=== PATIENT | female | born 1975 | race Caucasian/White ===

== ENCOUNTER 2020-06-04 09:56 | Emergency (ER) | payer OTHER, SELFPAY ==
--- NOTE | ~2020-06-04 | XR_ITS ---
EXAMINATION: XR chest 2V DATE: 06/04/2020 10:30 INDICATION: Cough and congestion. TECHNIQUE: Frontal and lateral views of the chest were obtained. COMPARISON: Chest 2 views 07/20/2004 FINDINGS: The chest demonstrates clear lungs without pneumonia, pleural effusion, or pneumothorax. Th e heart size is normal. Surgical clips in the right upper quadrant are likely from cholecystectomy. IMPRESSION: 1. No acute cardiopulmonary disease. Reviewed, dictated and finalized at location A.
--- NOTE | 2020-06-04 10:09 | ED.URI ---
HPI - URI/Sore Throat General Chief Complaint: Upper Respiratory Infection Stated Complaint: COUGH/CHEST TIGHT/HEADACHE/NASAL CONGESITON Time Seen by Provider: 06/04/20 10:09 Source: patient and RN notes reviewed Mode of arrival: ambulatory Limitations: no limitations History of Present Illness HPI Narrative: 45-year-old female presents to [facility] with complaints of a sinus issues for about 10 days and states that it feels it has moved to her chest. Reports coughing and rib pain from coughing. Denies shortness of breath. has a history of bronchitis. Denies fevers. Denies chest pain Related Data Home Medications Medication Instructions Recorded Confirmed lisinopril 06/04/20 sertraline mg 06/04/20 topiramate 06/04/20 Allergies Allergy/AdvReac Type Severity Reaction Status Date / Time No Known Allergies Allergy Unverified 06/04/20 10:03 Review of Systems Review of Systems: Narrative: CONSTITUTIONAL: Denies fever, chills, or sweats. EYES: Denies visual changes, redness, or discharge. ENT: Reports rhinorrhea, congestion. Denies sore throat, or otalgia. CARDIOVASCULAR: Denies chest pain, palpitations, or edema. RESPIRATORY: Reports cough. Denies dyspnea. GASTROINTESTINAL: Denies abdominal pain, nausea, vomiting, or diarrhea. GENITOURINARY: Denies dysuria or hematuria. SKIN: Denies rash or itching. MUSCULOSKELETAL: Denies back pain, joint pain, or myalgia. NEUROLOGIC: Denies headache, numbness, or weakness. PSYCHIATRIC: Denies anxiety or depression. All other systems reviewed are negative, except as documented in HPI. PMFSH Comments At the time of my signature, I reviewed and agree with the nursing past medical, surgical, social, and family history. There is no relevant family history pertinent to the patient complaint. Exam Narrative: Exam Narrative: GENERAL: This is a well-nourished, well-developed patient, in no apparent distress. HEAD: normocephalic, atraumatic. EYES: PERRL. Sclera clear/white. Vision is grossly intact. EARS: External ears normal, auditory canals clear and without drainage, TMs normal without perforation. Hearing grossly intact. NOSE: External nose normal with clear nasal discharge. nares without redness. THROAT: Mucous membranes moist, posterior pharynx postnasal drip noted NECK: Neck supple, non-tender without lymphadenopathy, masses or thyromegaly. CARDIOVASCULAR: Regular rate and rhythm without murmurs, gallops, or rubs. RESPIRATORY: Clear to auscultation. Breath sounds equal bilaterally. No wheezes, rales, or rhonchi. GASTROINTESTINAL: Abdomen soft, non-tender, nondistended. SKIN: warm, intact with no suspicious lesions or rash, good texture and turgor. NEURO: awake, alert, and oriented to person, place and time. There were no obvious focal neurologic abnormalities. EXTREMITIES: No joint tenderness, effusion, or edema noted. BACK: Nontender without deformity. Course Vital Signs Vital signs: Vital Signs Temperature 98.9 F 06/04/20 10:12 Pulse Rate 65 06/04/20 10:12 Respiratory Rate 12 06/04/20 10:12 Blood Pressure 149/91 H 06/04/20 10:12 Pulse Oximetry 100 06/04/20 10:12 Temperature 98.9 F 06/04/20 10:12 Pulse Rate 65 06/04/20 10:12 Respiratory Rate 12 06/04/20 10:12 Blood Pressure 149/91 H 06/04/20 10:12 Pulse Oximetry 100 06/04/20 10:12 Reviewed. Patient has a history of elevated blood pressure, takes medications daily. States that she normally takes her medication for blood pressure at night MDM - URI/Sore Throat MDM Narrative Medical decision making narrative: Discharge instructions reviewed with patient, as well as provided in writing per nursing staff. The instructions also include specific and strict return/GO TO THE ER as well as f/u information. All questions have been answered, and the patient deny any further questions with discharge and discharge plan. Differential Diagnosis Differential diagnosis: Likely upper respirat
[2020-06-04 10:12] VITALS: BP 149/91; PULSE 65; RESP 12; TEMP 37.2; O2SAT 100
== END 2020-06-04 10:53 | disposition home or self-care (01) ==
PROVIDERS: Emergency Provider Nurse Practitioner; PCP Internal Medicine
DX: J40 Bronchitis, not specified as acute or chronic (principal)
CPT/HCPCS: 71046; 99213; G0463

== ENCOUNTER 2021-11-21 08:48 | Emergency (ER) | payer OTHER, SELFPAY ==
[2021-11-21] VITALS (7 sets, daily range): BP systolic 139–165; BP diastolic 84–119; PULSE 74–79; RESP 14–18; TEMP 36.3; O2SAT 99–100
--- NOTE | ~2021-11-21 | CT_ITS ---
EXAMINATION: CT brain wo con DATE: 11/21/2021 09:23 INDICATION: Headache. Dizziness. Left-sided numbness. TECHNIQUE: Computed tomography (CT) of the head was performed without intravenous contrast. The mA wa s adjusted according to patient size. Iterative reconstruction technique was employed. The dose-lengt h product was 605.33 mGy-cm. COMPARISON: Head CT 12/07/2011 FINDINGS: There is no intracranial hemorrhage, acute infarction, or abnormal intracranial mass lesion . The ventricles are normal in size. The orbits are normal. There is mild mucosal thickening in the e thmoid sinuses. The mastoid air cells are normal. IMPRESSION: 1. Normal brain. Reviewed, dictated and finalized at location A. IMPRESSION: 1. Normal brain.
--- NOTE | ~2021-11-21 | XR_ITS ---
EXAMINATION: XR chest 2V DATE: 11/21/2021 09:24 INDICATION: Shortness of breath. TECHNIQUE: Frontal and lateral views of the chest were obtained. COMPARISON: Chest 2 views 06/04/2020 FINDINGS: The chest demonstrates clear lungs without pneumonia, pleural effusion, or pneumothorax. Th e heart size is normal. Surgical clips in the right upper quadrant are likely from cholecystectomy. IMPRESSION: 1. No acute cardiopulmonary disease. Reviewed, dictated and finalized at location A.
--- NOTE | 2021-11-21 08:57 | ECG_ITS ---
Measurements Intervals [place] Rate: 76 P: 46 UT: 163 QRS: 2 QRSD: 98 T: 19 QT: 379 QTc: 428 Interpretive Statements SINUS RHYTHM NO PREVIOUS ECG AVAILABLE FOR COMPARISON Electronically Signed On 11-21-2021 19:56:57 CDT by Radha Barrientos M.D.
--- NOTE | 2021-11-21 09:06 | ED.DIZZY ---
HPI - Dizziness General Chief Complaint: Dizziness Stated Complaint: dizzy, light headed, sore throat, headache x7 days Time Seen by Provider: 11/21/21 08:56 History of Present Illness HPI Narrative: Patient is a 46-year-old female with a history of ankylosing spondylitis (follows with rheum), migraine headaches, here for evaluation of dizziness over the past week. Patient states that the dizziness comes when she goes from sitting to standing and also when she turns her head. She notes that the dizziness is also present when she lies in bed at night, describes as a room spinning sensation. States that she came to the ED today because she noticed some left-sided tingling in her hand and foot. Denies any nausea, vomiting, ear pain, tinnitus, weakness, speech changes. Additionally, she has noted a posterior headache over the past week. She has a history of migraine headaches, but states this 1 feels new given the location. Denies any visual changes, fevers, chills. She has had a sore throat but denies congestion, cough, rhinorrhea, ear pain. Related Data Home Medications Medication Instructions Recorded Confirmed lisinopril 10 mg tablet 20 mg DAILY 06/04/20 08/28/21 sertraline 100 mg tablet mg 06/04/20 08/28/21 topiramate 25 mg tablet 06/04/20 08/28/21 acetaminophen 500 mg capsule 500 mg PO Q6H PRN 08/28/21 08/28/21 bupropion HCl 300 mg 24 hr tablet, 300 mg PO QAM 08/28/21 08/28/21 extended release gabapentin 300 mg capsule 300 mg PO DAILY 08/28/21 08/28/21 lamotrigine 100 mg tablet 100 mg PO DAILY 08/28/21 08/28/21 meloxicam 7.5 mg tablet 7.5 mg PO DAILY 08/28/21 08/28/21 multivitamin 1 tablet PO DAILY 08/28/21 08/28/21 tramadol 50 mg tablet 50 mg PO Q6H PRN Pain 08/28/21 08/28/21 Allergies Allergy/AdvReac Type Severity Reaction Status Date / Time No Known Allergies Allergy Verified 11/21/21 09:01 Review of Systems Review of Systems: Gen: Denies fevers or chills Eyes: Denies eye pain or visual change ENT: Denies congestion Respiratory: Denies shortness of breath or cough CV: Denies chest pain or palpitations GI: Denies abdominal pain nausea, emesis or diarrhea denies burning, urgency, frequency or hematuria Musculoskeletal: Denies back pain or muscle pain Neuro: Reports dizziness, tingling, headache. Skin: Denies rash Except as documented, all other systems reviewed and negative PMFSH Past Medical History Medical History Shoulder impingement Surgical History Surgical History History of 1994, 1996 History of cholecystectomy 1995 Hx of prior ablation treatment 2008 Family History Family History (Updated 08/29/21 @ 14:42 by Mallika Staples MA) Unknown Family history of cancer oral and sarcoma Family history of kidney disease Other Asthma Depression Diabetes mellitus Heart disease Hypertension Social History Social History (Updated 08/29/21 @ 14:48 by Mallika Staples MA) Smoking status: Never smoker Alcohol intake: current Drinks per week: 6 Substance use: current Substance use type: marijuana 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 Head: Normocephalic and atraumatic. EYES: Fatigable, horizontal nystagmus. PERRLA/EOMI, conjunctivae clear NOSE: No nasal drainage EARS: External ear normal in appearance THROAT: Oropharynx is clear, no erythema or exudates. Mucous membranes are moist. NECK: Supple. No adenopathy, no masses. RESPIRATORY: Airway patent, respirations nonlabored. Clear to auscultation bilaterally, no rales, rhonchi, wheezing. CARDIOVASCULAR: Regular rate and rhythm without murmurs, rubs, or gallops. ABDOMINAL: Normoactive bowel sounds
[2021-11-21] MEDS: MECLIZINE HCL 25 MG TABLET PO (09:10)
[2021-11-21 09:44] LABS: Basophils Absolute Auto 0.1 K/mm3 (0.0-0.1); Basophils Percent Auto 1.2 % (0.2-1.2); Eosinophils Absolute Auto 0.1 K/mm3 (0-0.3); Eosinophils Percent Auto 1.9 % (0-4.4); Hematocrit 41.9 % (37.0-47.0); Hemoglobin 13.9 g/dL (12.0-15.0); Immature Granulocyte Absolute 0.01 K/mm3 (0.00-0.031); Immature Granulocyte Percent A 0.2 % (0-0.5); Lymphocytes Absolute Auto 1.87 K/mm3 (0.9-3.2); Lymphocytes Percent Auto 32.4 % (18.3-44.2); Mean Corpuscular HGB Conc 33.2 g/dl (32-36); Mean Corpuscular Hemoglobin 30.2 pg (26-34); Mean Corpuscular Volume 90.9 fl (80-100); Mean Platelet Volume 10.4 fl (7.4-10.4); Monocytes Absolute Auto 0.4 K/mm3 (0.1-0.6); Monocytes Percent Auto 6.2 % (2.6-8.5); Neutrophils Absolute Auto 3.4 K/mm3 (1.3-6.7); Neutrophils Percent Auto 58.1 % (45.5-73.1); Platelet Count Result 179 k/mm3 (150-375); Red Blood Count 4.61 M/mm3 (4.2-5.4); Red Cell Distribution Width 13.9 % (11.5-14.5); White Blood Count 5.8 K/mm3 (4.5-10.0)
[2021-11-21 09:57] LABS: Alanine Aminotransferase 49 U/L (6-35); Albumin Level 4.8 g/dL (3.5-5.1); Alkaline Phosphatase 64 U/L (38-126); Anion Gap 6 mmol/L (8-16); Aspartate Amino Transferase 31 U/L (14-36); Bilirubin,Total 0.5 mg/dL (0.2-1.3); Blood Urea Nitrogen 10 mg/dL (7-17); Calcium 9.3 mg/dL (8.4-10.2); Carbon Dioxide 23 mmol/L (22-30); Chloride 106 mmol/L (98-107); Estimated CRCL calculation 70 ml/min; Estimated Glomerular Filt Rate 53; Glucose 119 mg/dL (65-110); Potassium 3.9 mmol/L (3.4-5.0); Sodium 135 mmol/L (137-145)
[2021-11-21 10:09] LABS: Troponin I 0.014 ng/mL (0.000-0.034)
[2021-11-21 10:22] LABS: SARS-CoV-2 RNA PCR Negative
[2021-11-21] MEDS: SODIUM CHLORIDE 0.9% IV 1,000 ML 999 ML IV CONT (10:35)
--- NOTE | 2021-11-21 11:23 | PC.NURSE ---
Pt states unable to pee at this time, will attempt after IVF finished infusing
[2021-11-21 12:23] LABS: Appearance Urine Slightly Cloudy (Clear); Bilirubin Urine Negative (Negative); Color Urine Yellow (Yellow); Glucose Urine UA Negative (Negative); Ketones Urine Negative (Negative); Leukocyte Esterase Ur Trace LEU/UL (Negative); Nitrate Urine Negative (Negative); Protein Urine Negative (Negative)
[2021-11-21 12:25] LABS: Add Urine Microscopic? YES; Blood Urine Trace-Intact (Negative)
[2021-11-21 12:38] LABS: Amorphous Sediment Urine Few; Mucus Urine Rare /lpf; Squamous Epithelial Cell Urine Few /hpf (Few)
== END 2021-11-21 12:49 | disposition home or self-care (01) ==
PROVIDERS: Physician Assistant; Emergency Provider Emergency Medicine; PCP Internal Medicine
DX: R42 Dizziness and giddiness (principal); Z20.822 Contact with and (suspected) exposure to COVID-19; M45.9 Ankylosing spondylitis of unspecified sites in spine
CPT/HCPCS: 36415; 70450; 71046; 80053; 81001; 81025; 84484; 85025; 93005; 96360; 96361; 99284; A9270; C9803; J7030; U0003; U0005

== ENCOUNTER → 2021-12-22 09:34 | Outpatient (CLI) | payer OTHER, SELFPAY ==
--- NOTE | ~2021-12-22 | MR_ITS ---
EXAMINATION: MR shoulder LT wo con DATE: 12/22/2021 10:22 INDICATION: Generalized left shoulder pain and limited range of motion TECHNIQUE: Magnetic resonance imaging (MRI) of the left shoulder was performed without intravenous co ntrast. Sequences included axial PD-weighted FS FSE, coronal oblique PD-weighted FS FSE, coronal obli que T2-weighted FS FSE, sagittal PD-weighted FS FSE, and sagittal T1-weighted SE. COMPARISON: None. FINDINGS: Coracoacromial arch: The acromion undersurface is curved in morphology (type II). The coracoacromial ligament is normal. M inimal acromioclavicular osteoarthritis. Rotator cuff: Mild supraspinatus and subscapularis tendinopathy without tear. The infraspinatus and teres minor ten dons are normal. Normal rotator cuff muscle bulk and signal. Biceps tendon, glenoid labrum and glenohumeral cartilage: Long head of the biceps tendon is normal. Is an accessory head of the long head biceps tendon which a ppears to transition into the joint capsule along with the distal aspect of the biceps natalie sling. Glenoid labrum is normal. Glenohumeral cartilage is normal. Fluid: Physiologic amount of fluid in the glenohumeral joint and biceps tendon sheath. No loose osteochondr al bodies. Small amount of fluid in the subacromial/subdeltoid bursa consistent with mild bursitis. Bones: Normal marrow signal with no edema, fracture or abnormal marrow replacing process. IMPRESSION: 1. Mild supraspinatus and subscapularis tendinopathy without tear. 2. Mild subacromial/subdeltoid bursitis. Reviewed, dictated and finalized at location A.
== END ==
PROVIDERS: PCP Internal Medicine; Visit Provider Nurse Practitioner Family
DX: M25.512 Pain in left shoulder (principal); M75.52 Bursitis of left shoulder
CPT/HCPCS: 73221

== ENCOUNTER 2023-02-20 05:17 | Emergency (ER) | payer OTHER, SELFPAY ==
[2023-02-20] VITALS (21 sets, daily range): BP systolic 115–156; BP diastolic 66–91; PULSE 61–73; RESP 5–25; TEMP 36.4; O2SAT 96–99
--- NOTE | 2023-02-20 | ECG_ITS ---
Measurements Intervals [place] Rate: 66 P: 43 NV: 156 QRS: 1 QRSD: 97 T: 15 QT: 407 QTc: 429 Interpretive Statements SINUS RHYTHM DELAYED PRECORDIAL R/S TRANSITION BORDERLINE ECG COMPARED TO ECG 11/21/2021 09:02:38 NO SIGNIFICANT CHANGES Electronically Signed On 02-20-2023 6:34:21 [employer]IONAL SALES ENGINEER by Edwin Farrell D.O.
--- NOTE | ~2023-02-20 | CT_ITS ---
Clinical Indication: Chest pain CT Scan of the Chest with Contrast: Technique: Contiguous sections were acquired throughout the chest after intravenous administration of 100 cc of Omnipaque 350. Dose reduction technique was used on this scan by utilizing automated expos ure control and iterative reconstruction technique. The dose-length product (DLP) was 854.89 mGy-cm. Findings: There is no evidence of any significant mediastinal, hilar or axillary lymphadenopathy. There is no f illing defect in the pulmonary arterial tree to suggest pulmonary embolus. There is no evidence of ao rtic dissection or aneurysm. There is no evidence of pleural or pericardial effusion. The lungs are clear. No pulmonary nodules or infiltrates are noted. Images through the upper abdomen reveal no abnormalities. Impression: No evidence of pulmonary embolus, aortic dissection, or aortic aneurysm. Clear lungs. Reviewed, dictated and finalized at [facility]. L BUSINESS SALES REPRESENTATIVE Impression: No evidence of pulmonary embolus, aortic dissection, or aortic aneurysm. Clear lungs.
[2023-02-20] MEDS: ASPIRIN 81 MG CHEWABLE TABLET 324 MG PO (05:35)
[2023-02-20 05:37] LABS: Basophils Percent Auto 0.6 % (0.2-1.2); Eosinophils Absolute Auto 0.1 K/mm3 (0-0.3); Eosinophils Percent Auto 1.6 % (0-4.4); Hematocrit 38.9 % (37.0-47.0); Hemoglobin 12.7 g/dL (12.0-15.0); Immature Granulocyte Absolute 0.03 K/mm3 (0.00-0.031); Immature Granulocyte Percent A 0.6 % (0-0.5); Lymphocytes Absolute Auto 1.69 K/mm3 (0.9-3.2); Lymphocytes Percent Auto 33.5 % (18.3-44.2); Mean Corpuscular HGB Conc 32.6 g/dl (32-36); Mean Corpuscular Hemoglobin 30.8 pg (26-34); Mean Corpuscular Volume 94.2 fl (80-100); Mean Platelet Volume 10.6 fl (7.4-10.4); Monocytes Absolute Auto 0.6 K/mm3 (0.1-0.6); Monocytes Percent Auto 12.7 % (2.6-8.5); Neutrophils Absolute Auto 2.6 K/mm3 (1.3-6.7); Platelet Count Result 158 k/mm3 (150-375); Red Blood Count 4.13 M/mm3 (4.2-5.4); Red Cell Distribution Width 13.6 % (11.5-14.5)
[2023-02-20 05:48] LABS: Prothrombin Time 13.4 Seconds (11.1-14.7)
[2023-02-20 05:49] LABS: Partial Thromboplastin Time 25.3 SECONDS (22.3-36.8)
[2023-02-20] MEDS: BENZONATATE 100 MG CAPSULE 200 MG PO (05:49)
[2023-02-20] MEDS: MORPHINE SULFATE (*CRX) 4 MG/ML INJ IV PUSH (05:50)
[2023-02-20 05:52] LABS: Alanine Aminotransferase 47 U/L (6-35); Albumin Level 3.7 g/dL (3.5-5.1); Alkaline Phosphatase 70 U/L (38-126); Anion Gap 9 mmol/L (8-16); Aspartate Amino Transferase 26 U/L (14-36); Bilirubin,Total 0.4 mg/dL (0.2-1.3); Blood Urea Nitrogen 7 mg/dL (7-17); Calcium 8.9 mg/dL (8.4-10.2); Carbon Dioxide 21 mmol/L (22-30); Chloride 109 mmol/L (98-107); Estimated CRCL calculation 92 ml/min; Estimated Glomerular Filt Rate > 60; Glucose 100 mg/dL (65-110); Lipase 77 U/L (23-300); Potassium 3.6 mmol/L (3.4-5.0); Sodium 139 mmol/L (137-145)
[2023-02-20 06:03] LABS: Troponin I < 0.012 ng/mL (0.000-0.034)
[2023-02-20 06:13] LABS: Influenza A QL RT-PCR Negative (Negative); Influenza B QL RT-PCR Negative (Negative); RSV RNA, RT-PCR Negative (Negative); SARS-CoV-2 RNA PCR Positive (Negative)
[2023-02-20 06:15] LABS: Lactic Acid Reflex 1.5 mmol/L (0.7-2.0)
[2023-02-20 06:20] LABS: NT Pro B Type Natriuretic Pept 255 pg/mL (19.9-100)
--- NOTE | 2023-02-20 06:29 | ED.GENADULT ---
HPI - General Adult General Chief complaint: Chest Pain <Abiel Small MD - Last Filed: 02/20/23 06:30> Stated complaint: sob <Abiel Small MD - Last Filed: 02/20/23 06:30> Time Seen by Provider: 02/20/23 05:38 <Abiel Small MD - Last Filed: 02/20/23 06:30> History of Present Illness HPI narrative: patient 48-year-old female who presents emerged department chief complaint of chest pain shortness of breath. Patient reports she was recently diagnosed with COVID-19 reports that she has been coughing a lot and tonight started having pain in her chest. The patient reports the pain is sharp reports it is worsen or she takes deep breath. Patient reports that she has no prior history of cardiac disease but does have hypertension. <Abiel Small MD - Last Filed: 02/20/23 06:30> Related Data Home medications: Home Medications Medication Instructions Recorded Confirmed sertraline 100 mg tablet mg 06/04/20 08/28/21 acetaminophen 500 mg capsule 500 mg PO Q6H PRN 08/28/21 08/28/21 bupropion HCl 300 mg 24 hr tablet, 300 mg PO QAM 08/28/21 08/28/21 extended release gabapentin 300 mg capsule 300 mg PO DAILY 08/28/21 08/28/21 lamotrigine 100 mg tablet 100 mg PO DAILY 08/28/21 08/28/21 multivitamin 1 tablet PO DAILY 08/28/21 08/28/21 amlodipine 2.5 mg tablet 2.5 mg PO DAILY 12/28/21 lisinopril 10 mg tablet 20 mg PO DAILY 12/28/21 metoprolol tartrate 25 mg tablet 25 mg PO DAILY 12/28/21 prednisone 5 mg tablet 5 mg PO TID 12/28/21 sulfasalazine 500 mg tablet 1 g PO BID 12/28/21 topiramate 25 mg tablet 50 mg PO DAILY 12/28/21 <Abiel Small MD - Last Filed: 02/20/23 06:30> Allergies/adverse reactions: Allergies Allergy/AdvReac Type Severity Reaction Status Date / Time No Known Allergies Allergy Verified 12/28/21 11:43 <Abiel Small MD - Last Filed: 02/20/23 06:30> Review of Systems Review of Systems: A 10 system review of systems was completed on the patient and is negative except for what is stated in the HPI. Nursing and ancillary documentation was reviewed. <Abiel Small MD - Last Filed: 02/20/23 06:30> PMFSH Past Medical History Medical History: Medical History Left shoulder pain Rotator cuff tendonitis Shoulder impingement <Abiel Small MD - Last Filed: 02/20/23 06:30> Surgical History Surgical History: Surgical History History of 1994, 1996 History of cholecystectomy 1995 Hx of prior ablation treatment 2008 <Abiel Small MD - Last Filed: 02/20/23 06:30> Family History Family History: Family History Unknown Family history of cancer oral and sarcoma Family history of kidney disease Other Asthma Depression Diabetes mellitus Heart disease Hypertension <Abiel Small MD - Last Filed: 02/20/23 06:30> Social History Social History: Social History Smoking status: Never smoker Alcohol intake: current Drinks per week: 6 Substance use: current Substance use type: marijuana Occupation/Education: occupation 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 HEAD: Normocephalic, atraumatic. EYES: PERRLA and EOMI. ENT: Nares clear, no rhinorrhea or epistaxis. Mucous membranes moist. NECK: Supple. CHEST: Clear to auscultation. No respiratory distress. HEART: Regular rate and rhythm. No murmur heard. Nor
[2023-02-20 08:34] LABS: Troponin I < 0.012 ng/mL (0.000-0.034)
== END 2023-02-20 09:45 | disposition home or self-care (01) ==
PROVIDERS: Emergency Medicine; Emergency Provider Emergency Medicine; PCP Internal Medicine
DX: U07.1 COVID-19 (principal); J40 Bronchitis, not specified as acute or chronic; R07.89 Other chest pain; I10 Essential (primary) hypertension; Z90.49 Acquired absence of other specified parts of digestive tract
CPT/HCPCS: 36415; 71275; 80053; 83605; 83690; 83880; 84484; 85025; 85610; 85730; 87637; 93005; 96374; 99284; A9270; J2270; Q9967

== ENCOUNTER 2024-02-22 18:11 | Emergency (ER) | payer OTHER, SELFPAY ==
--- NOTE | ~2024-02-22 | XR_ITS ---
EXAMINATION: XR chest 2V Exam Date/Time: 02/22/2024 18:35 TOBACCO CURER HISTORY: cough, chest heaviness Comparison: 11/21/2021. RESULT: Lines, tubes, and devices: Cholecystectomy clips. Lungs and pleura: Clear. Cardiomediastinal silhouette: Stable. Other: No acute osseous or upper abdominal finding. IMPRESSION: No acute cardiopulmonary process. Reviewed, dictated and finalized at location K. CCO CURER
--- NOTE | 2024-02-22 18:13 | ED_ITS ---
HPI - URI/Sore Throat General Chief Complaint: Upper Respiratory Infection Stated Complaint: SORE THROAT/TIRED Time Seen by Provider: 02/22/24 18:13 Source: patient Mode of arrival: ambulatory Limitations: no limitations History of Present Illness HPI Narrative: Nae is a 49-year-old female patient presenting to the clinic today with complaints of sore throat, nasal congestion, cough, chest heaviness-feels a squeezing sensation which she is trying to take a deep breath, fatigue, and overall not feeling well. She reports symptoms started yesterday. She took an at-home COVID test and it was negative. States her symptoms are similar to when she had COVID last year. She denies any fever but has had some body aches. MD elicited complaint: cough, sore throat, rhinorrhea, nasal congestion and other (Chest heaviness) Related Data Home Medications Medication Instructions Recorded Confirmed acetaminophen 500 mg capsule 500 mg PO Q6H PRN Pain 08/28/21 02/22/24 bupropion HCl 300 mg 24 hr tablet, 300 mg PO QAM 08/28/21 02/22/24 extended release gabapentin 300 mg capsule 300 mg PO DAILY 08/28/21 02/22/24 lamotrigine 100 mg tablet 100 mg PO DAILY 08/28/21 02/22/24 amlodipine 2.5 mg tablet 2.5 mg PO DAILY 12/28/21 02/22/24 lisinopril 10 mg tablet 20 mg PO DAILY 12/28/21 02/22/24 metoprolol tartrate 25 mg tablet 25 mg PO DAILY 12/28/21 02/22/24 prednisone 5 mg tablet 5 mg PO TID 12/28/21 02/22/24 sulfasalazine 500 mg tablet 1 g PO BID 12/28/21 topiramate 25 mg tablet 50 mg PO DAILY 12/28/21 02/22/24 Allergies Allergy/AdvReac Type Severity Reaction Status Date / Time No Known Allergies Allergy Verified 12/28/21 11:43 Review of Systems Review of Systems: Pertinent positives per HPI. Patient denies any fever, rash, headache, visual changes, dizziness, chest pain, palpitations, nausea, vomiting, diarrhea, constipation, abdominal pain, or any urinary issues. COUNTS INCLUDE 234 BEDS AT THE [facility] Past Medical History Medical History Left shoulder pain Rotator cuff tendonitis Shoulder impingement Surgical History Surgical History History of 1994, 1996 History of cholecystectomy 1995 Hx of prior ablation treatment 2008 Family History Family History Unknown Family history of cancer oral and sarcoma Family history of kidney disease Other Asthma Depression Diabetes mellitus Heart disease Hypertension Social History Social History Smoking status: Never smoker Alcohol intake: current Drinks per week: 6 Substance use: current Substance use type: marijuana Occupation/Education: occupation Additional occupation/education comments: [employer] at [employer] Gender identity (if verbalized by the patient): Female Comments At the time of my signature, I reviewed and agree with the nursing past medical, surgical, social, and family history. There is no relevant family history pertinent to the patient complaint. Exam Narrative: General: Well-developed, well nourished, in no apparent distress Head: Normocephalic, atraumatic Eyes: Pupils equally round and reactive to light bilaterally, EOM intact, sclera and conjunctive clear, no discharge, lids normal Ears: TMs intact and clear, ear canals clear, no drainage, grossly hearing normal. Nose: Nares patent, clear nasal discharge, no inflammation, no sinus tenderness. Mouth: Oral pharynx without lesions or masses, good dentition, MMM. Neck: Supple, trachea midline, no enlargement of anterior or posterior cervical nodes, no thyroid masses or goiter palpable. Cardio: Regular rate and rhythm, s1 and s2 normal, no murmur appreciated. Resp: Clear to auscultation bilaterally, no rhonchi, rales, wheezing or rubs Course Course Emergency Course: Portions of this record may have been created with voice recognition software. Level of Care: Express Care Visit Vital Signs Vital signs: Vital Signs Temperature 36.4 C 02/22/24 18:38 Pulse Rate 83 02/22/24 18:38 Respiratory Rate 16 02/22/24 18:38 Blood Pressure 150/97 H 02/22/24 18:38 Pulse Oximetry 100 02/22/24 18:38 Temperature 36.4 C 02/22/24 18:38 Pulse Rate 83 02/22/24 18:38 Respiratory Rate 16 02/22/24 18:38 Blood Pressure 150/97 H 02/22/24 18:38 Pulse Oximetry 100 02/22/24 18:38 Vital signs reviewed MDM - URI/Sore Throat MDM Narrative Medical decision making narrative: At the time of visit patient is resting comfortably on the exam table. Patient appears to be nontoxic. Labs: COVID, influenza, strep test were all negative. We will send strep for culture. Diagnostics: Chest x-ray was performed and was negative for any acute cardiopulmonary process. Plan: I suspect patient has URI/viral syndrome. Will send in prescription for albuterol inhaler. Recommend patient to the ER if she develops chest pain or shortness of breath worsens. Supportive measures were discussed with the patient and they voiced understanding discharge instructions and agrees to treatment plan. Return precautions reviewed Differential Diagnosis Differential diagnosis: Likely upper respiratory infection, otitis media, sinusitis, viral infection, bronchitis, influenza, pharyngitis and other (COVID) Lab Data Labs: Lab Results 02/22/24 Range/Units 18:44 POC Influenza A Ag Negative (Negative) POC Influenza B Ag Negative (Negative) POC SARS CoV-2 Ag Negative (Negative) POC Grp A Strep Screen Negative (Negative) Imaging Data Radiologist's impression: ITS Impressions Chest X-Ray 02/22/24 19:12 IMPRESSION: No acute cardiopulmonary process. Discharge Plan Discharge Clinical Impression: Acute viral syndrome URI (upper respiratory infection) Qualifiers: URI type: unspecified URI Qualified Code(s): J06.9 - Acute upper respiratory infection, unspecified Patient Disposition: Home, Self-Care Condition: Stable Instructions: Antibiotic Form, Viral Syndrome (ED), Cold Symptoms (ED) Additional Instructions: Chest x-rays negative for any acute cardiopulmonary process. COVID, influenza, and strep test were all negative in the clinic today. We will send strep for culture if this comes back positive we will contact you in place you on antibiotics at that time. Take prescription medications only as prescribed-albuterol inhaler Increase fluids and stay well hydrated Tylenol/motrin for pain/fever Flonase and OTC antihistamines as directed Vicks vapor rub to open sinuses Sinus rinses for congestion Cepacol spray, cough drops, throat lozenges, warm tea with honey/lemon, gargle salt water to soothe throat BRAT diet for diarrhea Clear liquids x 24 hours then advance as tolerated for nausea/vomiting Go to the ED if you develop a worsening in your condition- high fever not controlled by Tylenol or Motrin, dehydration, weakness, lethargy, shortness of breath, or chest pain. Follow up with your PCP in 3-5 days if symptoms persist. Prescriptions: New albuterol sulfate 90 mcg/actuation HFA aerosol inhaler 2 puff inhalation Q4-6H PRN (Reason: shortness of breath or wheezing) 30 Days Qty: 8.5 0RF No Action lisinopril 10 mg tablet 20 mg PO DAILY topiramate 25 mg tablet 50 mg PO DAILY bupropion HCl 300 mg tablet extended release 24 hr 300 mg PO QAM lamotrigine 100 mg tablet 100 mg PO DAILY gabapentin 300 mg capsule 300 mg PO DAILY acetaminophen 500 mg capsule 500 mg PO Q6H PRN (Reason: Pain) amlodipine 2.5 mg tablet 2.5 mg PO DAILY prednisone 5 mg tablet 5 mg PO TID sulfasalazine 500 mg tablet 1 g PO BID Rx Instructions: give with food (meal/snack) metoprolol tartrate 25 mg tablet 25 mg PO DAILY meclizine 25 mg tablet 25 mg PO BID PRN (Reason: dizziness) Qty: 14 0RF prednisone 20 mg tablet 40 mg PO DAILY Qty: 5 0RF Follow-up/Referrals: Evan,YESENIA LondonP [Primary Care Provider] - Time of Disposition: 19:16 Quality NIHSS Nursing Documentation ED NIHSS nursing documentation: reviewed/agree
[2024-02-22 18:38] VITALS: BP 150/97; PULSE 83; RESP 16; TEMP 36.4; O2SAT 100
[2024-02-22 18:46] LABS: EDCOVIDSCREEN Negative (Negative); EDINFLUASCREEN Negative (Negative); EDINFLUBSCREEN Negative (Negative); EDSTREPNEGPOS1 Negative (Negative)
== END 2024-02-22 19:24 | disposition home or self-care (01) ==
PROVIDERS: Emergency Provider Nurse Practitioner Family; PCP Nurse Practitioner Family
DX: B34.9 Viral infection, unspecified (principal); J06.9 Acute upper respiratory infection, unspecified; Z20.822 Contact with and (suspected) exposure to COVID-19; F12.90 Cannabis use, unspecified, uncomplicated
CPT/HCPCS: 71046; 87081; 87426; 87804; 87880; 99213; G0463

== ENCOUNTER 2024-06-21 11:13 | Emergency (ER) | payer OTHER, SELFPAY ==
[2024-06-21] VITALS (9 sets, daily range): BP systolic 130–150; BP diastolic 76–97; PULSE 80–89; RESP 16; TEMP 36.3; O2SAT 97–100
--- NOTE | ~2024-06-21 | CT_ITS ---
EXAMINATION: CTA BRAIN/CAROTID DATE: 06/21/2024 16:37 INDICATION: Dizziness. Tinnitus. TECHNIQUE: Computed tomographic angiography (CTA) of the head and neck was performed with 100 mL Omni paque-350 intravenous contrast. Multiplanar reconstructions and maximum intensity projection 3D-recon structions of the carotid arteries and of the intracranial arteries were created by the technologist on a separate workstation. Precontrast CT of the head was also obtained. Automated exposure control and iterative reconstruction technique were employed.The dose-length product was 1741.64 mGy-cm. COMPARISON: Head CT dated 11/21/2021 FINDINGS: Carotid arteries: Visualized aortic arch antegrade flow size and from the arch are normal in caliber with no evident at herosclerotic plaque or dissection. There is no evident atherosclerotic plaque with 0% stenosis of th e right carotid bulb relative to normal distal artery lumen diameter (NASCET criteria). There is mini mal atherosclerotic plaque with 0% stenosis of the left carotid bulb relative to normal distal artery lumen diameter. Left vertebral artery is mildly dominant. No evident stenosis or dissection along th e cervical portion of the bilateral femoral arteries. The visualized upper lungs are clear. 1.8 cm hy poenhancing nodule at the inferior left thyroid lobe. Cervical soft tissues are otherwise unremarkabl e. Mild to moderate cervical spondylosis. Head: No acute intracranial hemorrhage, acute infarction or abnormal extra axial fluid collection. Ventricl es are normal and symmetric. No mass/mass effect. No abnormally enhancing brain lesions on the postco ntrast imaging. The orbits, paranasal sinuses and mastoid air cells are normal. Intracranial arteries The left vertebral artery is mildly dominant. There is no hemodynamically significant stenosis in the vertebral, basilar and internal carotid arteries. There are no aneurysms identified. Both A1 and P1 segments are patent. There is a patent anterior communicating artery. Cerebral arterial arborization appears symmetric. IMPRESSION: 1. 0% stenosis of the right and left carotid bulbs relative to normal distal artery lumen diameter (N ASCET criteria). 2. Normal brain and unremarkable cerebral CT angiogram. 3. 1.8 cm left thyroid nodule. Consider thyroid ultrasound for risk stratification. Reviewed, dictated and finalized at location B. IMPRESSION: 1. 0% stenosis of the right and left carotid bulbs relative to normal distal ar juanjo lumen diameter (NASCET criteria). 2. Normal brain and unremarkable cerebral CT angiogram. 3. 1.8 cm left thyroid nodule. Consider thyroid ultrasound for risk stratificat ion.
--- OUTSIDE RECORDS SUMMARY | 2024-06-21 12:40 | XMS_ITS ---
Author Organization [facility] [employer] [facility] Address [address] [address] Care Team Providers Care Distribution Center Administrator Name Role Phone Samantha Hi Unavailable [phone] Migration, Provider Unavailable Unavailable REASON FOR VISIT EMR-Oli Encounters Encounter Location Date Provider Diagnosis [facility] [employer] [address] [facility] [address] [address] 06/24/2023 Provider Migration Depression, unspecified F32.A and Attention-deficit hyperactivity disorder, unspecified type F90.9 Assessments Encounter Date Diagnosis (ICD Code) Assessment Notes Treatment Notes Treatment Clinical Notes Section Notes 06/24/2023 Depression, unspecified (ICD-10 - F32.A) 06/24/2023 Attention-deficit hyperactivity disorder, unspecified type (ICD-10 - F90.9) Plan Of Treatment No Information Progress Notes * KAMERON LANIERDOB:[birth year] (48 yo M)Acc No.[id number]:06/24/2023 Patient: Dimitris OSORIOKAMERON OKEEFE Provider: :1975 A ge:48 Y S ex:Male Date:06/24/2023 Address:[address] [facility] Subjective: * Chief Complaints: * 1 . EMR-Oli. * Medical History: Objective: * Vitals: Assessment: * Assessment: 1. A ttention-deficit hyperactivity disorder, unspecified type - F90.9 2 . D epression, unspecified - F32.A Plan: * Treatment: * Billing Information: * Visit Code: * Procedure Codes: * Sign off status: Completed true * Provider: Date: 0 06/24/2023 Generated for Jennyfer lott/Bret/Evens on: 0 06/21/2024 12:40 PM CDT
--- OUTSIDE RECORDS SUMMARY | 2024-06-21 12:40 | XMS_ITS ---
Author Organization [facility] [employer] [facility] Address [address] [address] Care Team Providers Care Nuclear Cardiology Technologist Name Role Phone Samantha Hi [phone] Migration, Provider Unavailable Unavailable REASON FOR VISIT EMR-Oli Encounters Encounter Location Date Provider Diagnosis [facility] [address] [address] 08/09/2023 Provider Migration Plan Of Treatment No Information Progress Notes * KAMERON LANIERDOB:[birth year] (48 yo M)Acc No.[id number]:08/09/2023 Patient: Dimitris OSORIOSARY KAMERON :1975 A ge:48 Y S ex:Male Address:[address] [place], [address] Subjective: * Chief Complaints: * E MR-Oli * Medical History: * Surgical History: * Hospitalization/Major Diagno stic Procedure: * Medications: Objective: * Vitals: * Physical Examination: Assessment: Plan: * Treatment: * Procedure Codes: * true * Date: Generated for Printi ng/Faxing/eTransmitting on: 0 06/21/2024 12:40 PM CDT
--- OUTSIDE RECORDS SUMMARY | 2024-06-21 12:40 | XMS_ITS | Clinical Summary ---
Author Organization [facility] Address [address] [place] [address] Phone Care Team Providers Care Automotive Instructor Name Role Phone Unavailable Primary Care Provider Unavailabl e Social History Tobacco Use Types Packs/Day Years Used Date Smoking Tobacco: Never Assessed Comments Unknown Sex and Gender Information Value Date Recorded Sex Assigned at Not on file Legal Sex Female 3:39 PM CDT Gender Identity Not on file Sexual Orientation Not on file Plan of Treatment Not on file
--- OUTSIDE RECORDS SUMMARY | 2024-06-21 12:40 | XMS_ITS ---
Author Organization Unknown Patient Care team information Name Category Status Period Participants - - Proposed period not known - - - Proposed period not known -
--- OUTSIDE RECORDS SUMMARY | 2024-06-21 12:41 | XMS_ITS | Referral Summary ---
Author Organization [facility] Address [address] [place] [id number] Care Team Providers Care Packing Room Inspector Name Role Phone Gavino Han MD Unavailable [phone] Eleanor Tom NP Primary Care Provider [phone] Allergies No known active allergies Medications sertraline (ZOLOFT) 100 mg tablet sertraline 100 mg tablet Active lamoTRIgine (LaMICtal) 100 mg tablet 2 Active gabapentin (NEURONTIN) 300 mg capsule 2 Active traMADoL (ULTRAM) 50 mg tablet 2 Active cyclobenzaprine (FLEXERIL) 5 mg tabletIndication s:Acute pain of left shoulder Take 1 tablet (5 mg total) by mouth 3 (three) times a day as needed for muscle spasms 30 tablet 2 Active predniSONE (DELTASONE) 5 mg tablet 2 Active sulfaSALAzine EN (AZULFIDINE EN) 500 mg EC tablet [address] (VOLTAREN) 75 mg EC tablet 3 Active Strattera 40 mg capsule 4 Active benzonatate (TESSALON) 200 mg capsuleIndicatio ns:Non-recurrent acute suppurative otitis media of left ear without spontaneous rupture of tympanic membrane Take 1 capsule (200 mg total) by mouth 3 (three) times a day as needed for cough 30 capsule 4 Active Additional Information Patient not taking.Reported on 02/24/2024 topiramate (TOPAMAX) 25 mg tabletIndication s:Chronic migraine without aura with status migrainosus, not intractable Take 1 tablet (25 mg total) by mouth 2 (two) times a day 180 tablet 1 4 Active albuterol HFA (PROVENTIL HFA,VENTOLIN HFA,PROAIR HFA) 90 mcg/actuation inhaler 4 Active lisinopriL (PRINIVIL,ZESTRI L) 20 mg tablet Take 1 tablet (20 mg total) by mouth daily 90 tablet 1 4 Active metoprolol tartrate (LOPRESSOR) 25 mg immediate release tablet Take 1 tablet (25 mg total) by mouth every morning 90 tablet 1 4 Active amLODIPine (NORVASC) 2.5 mg tablet Take 1 tablet (2.5 mg total) by mouth daily 90 tablet 1 4 Active Active Problems Problem Noted Date Diagnosed Date Pain of ovary 02/24/2024 Pain in right hand 02/24/2024 Premenstrual dysphoric disorder 02/24/2024 Urinary tract infectious disease 02/24/2024 Lower respiratory infection (e.g., bronchitis, pneumonia, pneumonitis, pulmonitis) 02/24/2024 Assessment & Plan (02/24/2024 7:44 AM PARKING LOT SIGNALER): This is a worsening problem. Will treat with doxycycline b.i.d. for 10 days. Pure hypercholesterolemia 02/24/2024 Assessment & Plan (02/24/2024 7:44 AM PARKING LOT SIGNALER): Last LDL was 167. Will recheck with labs today. Not currently on a statin. Will continue to monitor Annual physical exam 02/24/2024 Assessment & Plan (02/24/2024 7:46 AM PARKING LOT SIGNALER): -Recommended: Healthy diet. Avoiding junk food/fast food. -30 minutes of exercise most days of the week. Increase to 45 minutes for weight loss. Health Maintenance reviewed - patient asked to schedule her mammogram. -Influenza vaccine every year Recommend: - Topic Date Due DTaP/Tdap/Td Vaccine (1 - Tdap) Never done -F/u in 1 year for Annual PE or sooner if needed Screening for colon cancer 10/20/2023 Hyperglycemia 07/26/2022 Ankylosing spondylitis 01/04/2022 Assessment & Plan (08/05/2023 3:40 PM CDT): Managed by Rheumatology, Dr. Hoffman Obstructive sleep apnea issa giron with continuous positive airway pressure (CPAP) 10/03/2021 Assessment & Plan (08/05/2023 3:12 PM CDT): Wears cpap Osteoarthritis 08/17/2021 Pain in joint of left shoulder 08/06/2021 Anxiety 06/03/2021 ADHD 04/03/2021 Migraine 04/03/2021 Assessment & Plan (08/05/2023 3:37 PM CDT): Stable. Does well with Topamax 25 mg b.i.d.. She has been out of it for about 3 weeks. Will restart at previous dose. Mood disorder 04/03/2021 Assessment & Plan (08/05/2023 3:40 PM CDT): Stable. Managed by Psychiatry, [facility] Thrombocytopenic disorder 06/19/2019 Assessment & Plan (08/05/2023 3:14 PM CDT): States she has seen hematology and her platelets are always low. Essential hypertension 02/20/2018 Assessment & Plan (02/24/2024 7:43 AM PARKING LOT SIGNALER): Mildly elevated today due to illness. Will continue amlodipine, lisinopril, and metoprolol. Not having as many palpitations as she was having when I saw her in July. Continue current medications and follow-up in 6 months Assessment & Plan (08/05/2023 3:33 PM CDT): Stable/ Improved. Blood pressure is adequately controlled on lisinopril (Prinivil), Metoprolol, and amlodipine . We will not make any medication changes today. Will have her follow-up in 6 months for continued monitoring and management Palpitations 02/20/2018 Assessment & Plan (08/05/2023 3:46 PM CDT): She has had this diagnosis on her chart in the past however I can not find previous or any recent diagnosis or workup on it. She is currently on metoprolol 25 mg that she states she is takes for blood pressure. EKG done in office today. Will order event monitor. Consider cardiology referral ECG 12 lead Date/Time: 08/05/2023 3:45 PM Performed by: Eleanor Tom NP Authorized by: Eleanor Tom NP Comparison: not compared with previous ECG Rhythm: sinus rhythm Rate: normal Conduction: conduction normal ST Segments: ST segments normal T Waves: T waves normal Other findings: LVH Clinical impression: normal ECG Resolved Problems Problem Noted Date Diagnosed Date Resolved Date Pain in forearm 02/24/2024 02/24/2024 Fatigue 08/05/2023 08/05/2023 Snoring 08/05/2023 08/05/2023 Disorder involving thrombocytopenia 08/05/2023 08/05/2023 Obese 06/03/2021 08/05/2023 Multiple joint pain 05/30/2021 08/05/19 24 Cough 05/01/2021 08/05/2023 Immunizations Immunization Administration Dates Next Due Influenza, Unspecified 12/29/2023,2023(Deferred: Patient Refused),03/24/2022(Deferred: Patient Refused),10/18/2016 Social History Tobacco Use Types Packs/Day Years Used Date Smoking Tobacco: Former Tobacco Cessation:Counseling Given: Not Answered AUDIT-C Answer Date Recorded Q1: How often do you have a drink containing alc ohol? Monthly or less 12/17/2023 Q2: How many drinks containi ng alcohol do you have on a typical day when you are drinking? 1 or 2 12/17/2023 Q3: How often do you have si x or more drinks on one occasion? Never 12/17/2023 PHQ-2 Answer Date Recorded PHQ-2 Total Score (If total score is 3 or more points, staff should administer the PHQ-9) 0 02/24/2024 Personal Safety Answer Date Recorded Have you ever been in or are you currently in a harmful physical or emotional relationship or is someone making you feel afraid or unsafe? Denies 12/17/2023 Comments No Sex and Gender Information Value Date Recorded Sex Assigned at Not on file Legal Sex Female 2:43 AM PARKING LOT SIGNALER Gender Identity Not on file Sexual Orientation Not on file Last Filed Vital Signs Vital Sign Reading Time Taken Comments Blood Pressure 136/82 02/24/2024 7:35 AM PARKING LOT SIGNALER Pulse 112 02/24/2024 7:08 AM PARKING LOT SIGNALER Temperature 36.6 C (97.8 F) 02/24/2024 7:08 AM PARKING LOT SIGNALER Respiratory Rate 18 02/24/2024 7:08 AM PARKING LOT SIGNALER Oxygen Saturation 97% 02/24/2024 7:08 AM PARKING LOT SIGNALER Inhaled Oxygen Concentration - - Weight 99.8 kg (220 lb 1.6 oz) 02/24/2024 7:08 A M PARKING LOT SIGNALER Height 175.3 cm (5' 9 ) 02/24/2024 7:08 AM PARKING LOT SIGNALER Body Mass Index 32.5 02/24/2024 7:08 AM PARKING LOT SIGNALER Plan of Treatment Not on file Procedures Procedure Name Priority Date/Time Associated Diagnosis Comments COLONOSCOPY 12/17/2023 8:10 AM CDT HEPATITIS C ANTIBODY Routine 08/05/2023 3:59 PM CDT Encounter for hepatitis C screening test for low risk patient from Last 3 Months or Most Recently Relevant to Health Maintenance Results * Colonoscopy (12/17/2023 8:10 AM CDT) Anatomical Region Laterality Modality Other Narrative Procedure Note Boni Bose MD - 12/17/2023 8:10 AM CDT [facility] GI ENDOSCOPY Patient Name: Nae Bajwa Procedure Date: 12/17/2023 8:10 AM Date of : 1975 Admit Type: Outpatient Age: 48 Gender: Female Attending MD: Boni Bose M.D. Room: [facility] 06 Note Status: Finalized Procedure: Colonoscopy Indications: Screening for colorectal malignant neoplasm Referring MD: Providers: Boni Bose M.D. Medicines: Monitored Anesthesia Care Complications: No immediate complications. Estimated Blood Loss: Estimated blood loss: none. Procedure: Pre-Anesthesia Assessment: - Prior to the procedure, a History and Physicalwas performed, and patient medications and allergieswere reviewed. The risks and benefits of the procedureand the sedation options and risks were discussed withthe patient. All questions were answered and informed consent was obtained. Patient identification and proposed procedure were verified. After reviewingthe risks and benefits, the patient was deemed in satisfactory condition to undergo the procedure.The anesthesia plan was to use monitored anesthesiacare (MAC). Immediately prior to administration of medications, the patient was re-assessed foradequacy to receive sedatives. The heart rate, respiratory rate, oxygen saturations, blood pressure, adequacyof pulmonary ventilation, and response to care were monitored throughout the procedure. The physical status of the patient was re-assessed after the procedure. The benefits, risks and alternatives of theprocedure and sedation were discussed and informed consentwas obtained. All questions were answered. Please referto the signed informed consent document in the medical record. The scope was passed under direct vision.The [id number]-[id number] colonoscope was introduced through theanus and advanced to the cecum, identified byappendiceal orifice and ileocecal valve. The colonoscopy was performed without difficulty. The patient tolerated the procedure well. The quality of the bowel preparation was adequate. Scope withdrawal time was21 minutes. Prep was administered in a split dose. Findings: The perianal and digital rectal examinations were normal. A diminutive polyp was found in the cecum. The polyp was removed witha cold biopsy forceps. Resection and retrieval were complete. A diminutive polyp was found in the hepatic flexure. The polyp was removed with a cold biopsy forceps. Resection and retrieval were complete. A 7 mm polyp was found in the hepatic flexure. The polyp was sessile. The polyp was removed with a hot snare. Resection and retrieval were complete. Two polyps were found in the descending colon. The polyps were diminutive in size. These polyps were removed with a cold biopsy forceps. Resection and retrieval were complete. A diminutive polyp was found in the rectum. The polyp was removedwith a cold biopsy forceps. Resection and retrieval were complete. A few small-mouthed diverticula were found in the sigmoid colon. The left colon was mildly tortuous. Non-bleeding internal hemorrhoids were found during retroflexion. The hemorrhoids were small. The exam was otherwise without abnormality. Impression: - One diminutive polyp in the cecum, removed with a cold biopsy forceps. Resected and retrieved. - One diminutive polyp at the hepatic flexure,removed with a cold biopsy forceps. Resected andretrieved. - One 7 mm polyp at the hepatic flexure, removedwith a hot snare. Resected and retrieved. - Two diminutive polyps in the descending colon, removed with a cold biopsy forceps. Resected and retrieved. - One diminutive polyp in the rectum, removed witha cold biopsy forceps. Resected and retrieved. - Diverticulosis in the sigmoid colon. - Tortuous colon. - Non-bleeding internal hemorrhoids. - The examination was otherwise normal. Recommendation: - Patient has a contact number available for emergencies. The signs and symptoms of potential delayed complications were discussed with thepatient. Return to normal activities tomorrow. Written discharge instructions were provided to thepatient. - High fiber diet. - Continue present medications. - Await pathology results. - Repeat colonoscopy in 3 years for surveillance. Boni Bose M.D. Boni Bose M.D. 12/17/2023 8:47:07 AM . Number of Addenda: 0 Note Initiated On: 12/17/2023 8:10 AM Recognized by the [employer] for promoting quality in endoscopy Boni Bose MD ENDOSCOPY PROCEDURES Final Resul t * Hepatitis C antibody Blood (08/05/2023 3:59 PM CDT) Hep C Ab Nonreactive Nonreactive Comment: Interpretive Data Nonreactive: Antibodies to HCV not detected. Does NOT exclude the possibility of recent exposure to HCV. Equivocal: Equivocal for HCV antibodies. Supplemental molecular testing will be automatically performed to determine infection status in accordance with current CDC screening recommendations. Reactive: Positive for HCV antibodies. This may represent current or past HCV infection. Supplemental molecular testing will be automatically performed to determine current infection status in accordance with current CDC screening recommendations. Interpretive data was last revised on 2019. Blood 08/05/2023 3:59 PM CDT 08/05/2023 8:23 PM CDT Eleanor Tom NP LAB MICROBIOLOGY - GENERAL OR DERABLES Final Result [facility] [id number] Department [place] [address] from Last 3 Months or Most Recently Relevant to Health Maintenance Insurance [facility] CHO[facility] PLUS [facility] CHO[employer] PLUS Care Teams Packing Room Inspector Relationship Specialty Start Date End Date Eleanor Tom NP PCP - General Family Medicine 08/05/23 Gavino Han MD Internal Medicine 08/03/21
--- OUTSIDE RECORDS SUMMARY | 2024-06-21 12:41 | XMS_ITS | Clinical Summary ---
Author Organization [address] Address [address] [place] [id number] Care Team Providers Care Presentation Specialist Name Role Phone Gavino Han MD Unavailable [phone] Eleanor Tom NP Primary Care Provider [phone] Allergies No known active allergies Medications sertraline [...] 02/24/2024 Assessment & Plan (02/24/2024 7:44 AM MANAGER WOUND CARE): This is a worsening problem. Will treat with doxycycline b.i.d. for 10 days. Pure hypercholesterolemia 02/24/2024 Assessment & Plan (02/24/2024 7:44 AM MANAGER WOUND CARE): Last LDL was 167. Will recheck with labs today. Not currently on a statin. Will continue to monitor Annual physical exam 02/24/2024 Assessment & Plan (02/24/2024 7:46 AM MANAGER WOUND CARE): -Recommended: Healthy diet. Avoiding junk food/fast food. [...] 3:40 PM CDT): Stable. Managed by Psychiatry, [facility] Thrombocytopenic disorder 06/19/2019 Assessment & Plan (08/05/2023 3:14 PM CDT): States she has seen hematology and her platelets are always low. Essential hypertension 02/20/2018 Assessment & Plan (02/24/2024 7:43 AM MANAGER WOUND CARE): Mildly elevated today due to illness. Will [...] Influenza, Unspecified 12/29/2023,2023(Deferred: Patient Refused),03/24/2022(Deferred: Patient Refused),10/18/2016 Surgical History Surgery Date Site/Laterality Comments SECTION CHOLECYSTECTOMY ABLATION TUBAL LIGATION COLONOSCOPY Medical History Medical History Date Comments Hypertension Ankylosing spondylitis (HCC) ADHD (attention deficit hyperactivity disorder) Sleep apnea Family History Medical History Relation Name Comments Cancer Mother Cancer Sister Relation Name Status Comments Mother Sister Social History Tobacco Use Types Packs/Day Years [...] on file Legal Sex Female 2:43 AM MANAGER WOUND CARE Gender Identity Not on file Sexual Orientation Not on file Obstetrics History Last Filed Vital Signs Vital Sign Reading Time Taken Comments Blood Pressure 136/82 02/24/2024 7:35 AM MANAGER WOUND CARE Pulse 112 02/24/2024 7:08 AM MANAGER WOUND CARE Temperature 36.6 C (97.8 F) 02/24/2024 7:08 AM MANAGER WOUND CARE Respiratory Rate 18 02/24/2024 7:08 AM MANAGER WOUND CARE Oxygen Saturation 97% 02/24/2024 7:08 AM MANAGER WOUND CARE Inhaled Oxygen Concentration - - Weight 99.8 kg (220 lb 1.6 oz) 02/24/2024 7:08 A M MANAGER WOUND CARE Height 175.3 cm (5' 9 ) 02/24/2024 7:08 AM MANAGER WOUND CARE Body Mass Index 32.5 02/24/2024 7:08 AM MANAGER WOUND CARE Plan of Treatment Health Maintenance Due Date Last Done Comments Breast Cancer Screening-Mammogram 1975 Cervical Cancer Screening 1975 DTaP/Tdap/Td Vaccine (1 - Tdap) 02/08/1984 Hepatitis B Screening 1991 Zoster Vaccine (1 of 2) 2023 Covid-19 Vaccine ( season) 2023 03/15/2021, 02/13/2021, 04/20/2020, Additional history exists Depression Screening 02/23/2025 02/24/2024, 08/05/19 24 Regular Well Visit/Exam 18-64 02/23/2025 02/24/2024 Colon Cancer Screening-Colonoscopy 12/16/2026 12/17/2023 Hepatitis C Screening Completed 08/05/2023 Influenza Vaccine Completed 12/29/2023, 10/18/2016 Pneumococcal vaccine <65 Aged Out No longer eligible based on patient's age to complete this topic Procedures Procedure Name Priority Date/Time Associated Diagnosis [...] Bose MD - 12/17/2023 8:10 AM CDT [facility]COPY Patient Name: Nae Bajwa Procedure Date: 12/17/2023 8:10 AM Date of : 1975 Admit Type: Outpatient Age: 48 Gender: Female Attending MD: Boni Bose M.D. Room: [facility] ENDOSCOPY ROOM 06 Note Status: Finalized Procedure: [...] The scope was passed under direct vision.The [id number]-[id number] colonoscope was introduced through theanus and advanced [...] On: 12/17/2023 8:10 AM Recognized by the [employer] for promoting quality in endoscopy us Boni Bose MD ENDOSCOPY PROCEDURES Final Resul [...] MICROBIOLOGY - GENERAL OR DERABLES Final Result [facility] [id number] [facility] Department [place] [address] from Last 3 Months or Most Recently Relevant to Health Maintenance Insurance [facility] Address: [address] [address] [place] [address] [facility] Address: [address] [address] [place] [address] Care Teams Presentation Specialist Relationship Specialty Start Date End Date Eleanor Tom NP PCP - General Family Medicine 08/05/23 Gavino Han MD Internal Medicine 08/03/21
--- OUTSIDE RECORDS SUMMARY | 2024-06-21 12:41 | XMS_ITS ---
Author Organization [facility] Address [address] [place] [address] [address] Care Team Providers Care Telephone Exchange Operator Name Role Phone Samantha Hi [phone] Migration, Provider Unavailable Unavailable REASON FOR VISIT [facility] Medications Medication SIG (Take, Route, Frequency, Duration) Notes Start Date End Date Status Cyclobenzaprine HCl 5 MG Oral Active Gabapentin 300 MG Oral Ac tive sulfaSALAzine 500 MG Oral Active lamoTRIgine 100 MG Oral A ctive Amoxicillin 875 MG Oral A ctive traMADol HCl 50 MG Oral A ctive buPROPion HCl ER (SR) 150 MG Oral Active Topiramate 25 MG Oral Act alirio amLODIPine Besylate 2.5 MG Oral Active Benzonatate 200 MG Oral A ctive Lisinopril 20 MG Oral Act alirio Sertraline HCl 100 MG Oral Active Metoprolol Tartrate 25 MG Oral Active Diclofenac Sodium 75 MG Oral Active metFORMIN HCl ER 500 MG Oral Active ProAir HFA 108 (90 Base) MCG/ACT Inhalation Active Encounters Encounter Location Date Provider Diagnosis [facility] [address] [id number] 08/10/2023 Provider Migration Plan Of Treatment No Information Progress Notes * KAMERON LANIERDOB:[birth year] (48 yo M)Acc No.[id number]:08/10/2023 Patient: Dimitris GUTIERREZ KAMERON :1975 A ge:48 Y S ex:Male Address:[address] [place], [address] Subjective: * Chief Complaints: * E MR-Oli * Medical History: * Surgical History: * Hospitalization/Major Diagno stic Procedure: * Medications: T akingMetoprolol Tartrate 25 MG Tablet Oral Amoxicillin 875 MG Tablet Oral lamoTRIgine 100 MG Tablet Oral Diclofenac Sodium 75 MG Tablet Delayed Release Oral Lisinopril 20 MG Tablet Oral amLODIPine Besylate 2.5 MG Tablet Oral ProAir HFA 108 (90 Base) MCG/ACT Aerosol Solution Inhalation Sertraline HCl 100 MG Tablet Oral traMADol HCl 50 MG Tablet Oral Topiramate 25 MG Tablet Oral buPROPion HCl ER (SR) 150 MG Tablet Extended Release 12 Hour Oral metFORMIN HCl ER 500 MG Tablet Extended Release 24 Hour Oral Benzonatate 200 MG Capsule Oral Cyclobenzaprine HCl 5 MG Tablet Oral Gabapentin 300 MG Capsule Oral sulfaSALAzine 500 MG Tablet Delayed Release Oral Taking Metoprolol Tartrate 25 MG Tablet Oral Taking Amoxicillin 875 MG Tablet Oral Taking lamoTRIgine 100 MG Tablet Oral Taking Diclofenac Sodium 75 MG Tablet Delayed Release Oral Taking Lisinopril 20 MG Tablet Oral Taking amLODIPine Besylate 2.5 MG Tablet Oral Taking ProAir HFA 108 (90 Base) MCG/ACT Aerosol Solution Inhalation Taking Sertraline HCl 100 MG Tablet Oral Taking traMADol HCl 50 MG Tablet Oral Taking Topiramate 25 MG Tablet Oral Taking buPROPion HCl ER (SR) 150 MG Tablet Extended Release 12 Hour Oral Taking metFORMIN HCl ER 500 MG Tablet Extended Release 24 Hour Oral Taking Benzonatate 200 MG Capsule Oral Taking Cyclobenzaprine HCl 5 MG Tablet Oral Taking Gabapentin 300 MG Capsule Oral Taking sulfaSALAzine 500 MG Tablet Delayed Release Oral Objective: * Vitals: * Physical Examination: Assessment: Plan: * Treatment: * Procedure Codes: * true * Date: Generated for Jennyfer lott/Bret/Evens on: 0 06/21/2024 12:41 PM T
--- OUTSIDE RECORDS SUMMARY | 2024-06-21 12:41 | XMS_ITS | Clinical Summary ---
Author Organization [employer] [facility] Address [address] [place] [address] Care Team Providers Care [place] Commissioner Name Role Phone Gavino Han MD Primary Care Provider [phone] Source Comments [employer],non-owned Affiliates and Associated Physician Practices is amultiple site organization consisting of ambulatory clinics and hospital sitesin [place], [place], [place] and [place]. This disclosure is being madepursuant to the Care Everywhere program and may not contain all information available regarding this patient. Last updated 17.[employer] [employer] Allergies No known active allergies Medications * Be aware that medications may not be up to date on this document. Alwaysverify current medications with the patient. Medication Sig Dispensed Refills Start Date End Date Status traMADol (ULTRAM) 50 MG tablet Take 1 Tab by mouth every 4 hours as needed for Pain 20 Tab 0 10/07/2015 Active naproxen (NAPROSYN) 500 MG tablet Take 1 Tab by mouth 2 times daily as needed for Pain 20 Tab 0 10/07/2015 Active Social History Tobacco Use Types Packs/Day Years Used Date Smoking Tobacco: Never Alcohol Use Standard Drinks/Week Comments Yes 0 (1 standard drink = 0.6 oz pur e alcohol) rare Sex and Gender Information Value Date Recorded Sex Assigned at Not on file Gender Identity Not on file Sexual Orientation Not on file Last Filed Vital Signs Vital Sign Reading Time Taken Comments Blood Pressure 160/102 10/07/2015 4:53 PM CDT Pulse 66 10/07/2015 4:53 PM CDT Temperature 36.9 C (98.4 F) 10/07/2015 4:53 PM CDT Respiratory Rate 15 10/07/2015 4:53 PM CDT Oxygen Saturation 100% 10/07/2015 4:53 PM CDT Inhaled Oxygen Concentration - - Weight 90.7 kg (200 lb) 10/07/2015 2:53 PM CDT Height 172.7 cm (5' 8 ) 10/07/2015 2:53 PM CDT Body Mass Index 30.41 10/07/2015 2:53 PM CDT Plan of Treatment Health Maintenance Due Date Last Done Comments COLOGUARD (AGES 45-75) - COL ON CA SCREENING 1973 COLON MONITORING 1973 COLONOSCOPY - COLON CA SCREENING 1973 CT COLONOGRAPHY - COLON CA SCREENING 1973 Colorectal Cancer Screening 1973 FIT - COLON CA SCREENING 1973 FLEX SIG - COLON CA SCREENING 1973 LIPID TESTING 1973 MAMMOGRAM 1973 PAP SMEAR 1973 HIV SCREENING 02/08/1988 HEPATITIS C SCREENING 02/03/1991 DTAP/TDAP/TD VACCINES (1 - Tdap) 02/08/1992 HEPATITIS B VACCINE (1 of 3 - 19+ 3-dose series) 02/08/1992 PNEUMOCOCCAL VACCINE 50+ (1 of 1 - PCV) 2023 ZOSTER VACCINE (1 of 2) 2023 COVID-19 VACCINE (4 - 2023-2 5 season) 2023 03/15/2021, 04/20/2020, 03/29/2020 INFLUENZA VACCINE (#1) 2023 DEPRESSION SCREENING 03/24/2024 HIB VACCINE Aged Out No longer eligi ble based on patient's age to complete this topic HPV VACCINE Aged Out No longer eligi ble based on patient's age to complete this topic MENINGOCOCCAL (Group B) VACCINE SHARED DECISION-MAKING Aged Out No longer eligible based on patient's age to complete this topic MENINGOCOCCAL GROUPS A/C/Y/W VACCINE Aged Out No longer eligible b ased on patient's age to complete this topic PNEUMOCOCCAL VACCINE Aged Out No long er eligible based on patient's age to complete this topic Care Teams County Commissioner Relationship Specialty Start Date End Date Gavino Han MD PCP - General Internal Medicine 10/07/15
--- OUTSIDE RECORDS SUMMARY | 2024-06-21 12:42 | XMS_ITS | Data Portability ---
Author Organization [place] [facility], Main Office Address [address] [place] [address] Assessment Encounter Date Assessment Date Assessment LastModified by Organization Details LastModified Time 07/26/2022 07/26/2022 Hypertension controlled. Blood work been ordered. SHELLEY seems to be doing fine when she gets her injections. She will follow-up with me in 4 months regular exercise dietary strategies for health discussed as well she follows with sleep doctor I am not sure with the efficacy of that is doing right now [email or web address] Not available 07/28/2022 11:10:56 12/05/2022 12/05/2022 Will continue with current therapy mammogram Cologuard 4 month follow-up [email or web address] Not available 12/05/2022 21:39:30 02/27/2023 02/27/2023 COVID breathing exercises and she will follow up at her regular appointment she will call in a couple weeks with an update Not available 02/27/2023 14:22:14 Plan of Treatment Reminders Order Date Submit Date Provider Last Modified By Organization Details Last Modified Time Details Appointments None recorded. Lab noninvasive colorectal cancer DNA + occult blood screening, QL, stool 2022 023 [facility] (Cologuard Orders Only), [address], [place], [address], 4 07:17:22 HbA1c (hemoglobin A1c), blood 2022 023 [email or web address], [address], [place], [address], 3 10:27:50 CMP, serum or plasma 2022 023 [employer] [facility], [address], [place], [address], 3 10:27:50 lipid panel, serum 2022 023 [employer] [facility], [address], [place], [address], 3 10:27:50 CBC w/ auto diff 2022 023 [email or web address] [facility], [address], [place], [address], 3 11:15:51 Referral None recorded. Procedures None recorded. Surgeries None recorded. Imaging MAMMO, screening, digital, bilateral 2022 023 [email or web address] [facility] ([facility]), [address] [place] [address], [address], 4 18:27:53 Medication Orders None recorded. Patient TargetsNo targets recorded. Patient Instructions Encounter Date Encounter Id Patient Instructions Last Modified By Organization Details Last Modified Time 12/05/2022 [id number] risk assessment* Not availabl e 12/05/2022 12:25:31 INFLUENZA VACCIN E TD/TDAP Recommended today, patient declined Ordered Patient will get at local pharmacy/health department PNEUMONIA VACCINE SHINGLES MAMMOGRAM: Last Mammogram __ DEXA SCAN Recommended today, but patient declined Ordered No screening indicated CERVICAL SCREENING/PELVIC EXAMINATION Recommended today, but patient declined Ordered No screening necessary patient is up to date COLORECTAL SCREENING: Last Colonoscopy DEPRESSION SCREENING Continue current medication BMI Overweight continue your current weight loss efforts try to lose 5% of your body weight try to lose 10% of your body weight NUTRITION PHYSICAL ACTIVITY Need more exercise/physical activity VISION ALCOHOL USE No alcohol use TOBACCO USE non smoker LUNG CANCER SCREENING Non Smoker-not indicated SEXUALLY ACTIVE HEPATITIS C SCREENING Not indicated GLUCOSE SCREENING LIPID SCREENING Not available 12/05/2022 11:03:23 Reason for Referral None Reported. Results Created Date Observation Date Name Description Value Unit Range Abnormal Flag Note LastModifiedBy Organization Detail LastModifiedTime 12/05/19 24 12/05/2023 COLOG UARD cologuard result Cancel led - Order d not applic able Not Available [facility] (Cologuard Orders Only) [address], [place], [address], 12/05/2023 07:17:22 02/21/20 23 02/20/2023 CT, angio gram, chest , w/ contr ast No observ ation record ed. [facility] [address], [place], [address], 02/22/2023 08:14:51 02/23/20 24 02/22/2024 XR, chest , 2 view No observ ation record ed. [email or web address] [facility], [place], [address], 02/27/2024 13:42:03 Result Notes None recorded. Problems Name Problem SNOMED Code Status Onset Date Resolution Date Notes Provider Name and Address Organization Details Recorded Time Abdominal pain 35032285 Completed Not Available [facility] 3 02:53:30 Ovarian pain 986294179 Completed Not Available [facility] 3 02:53:30 Thrombocy topenic disorder 957173224 Active 2019 Not Available [facility] 3 12:11:45 Pain in right hand 54877809070 9109 Completed Not Available [facility] 3 02:53:30 Migraine 07833033 Active Not Available [facility] 3 12:11:45 Osteoarth ritis 564867917 Active 2021 Not Available [employer] 3 12:11:45 Obesity 154212886 Active 2022 Not Available [facility] 3 12:11:45 Pain in forearm 074817342 Completed Not Available [facility] 3 02:53:31 Anxiety 27999958 Active Not Available [facility] 3 12:11:45 Premenstr ual dysphoric disorder 904742 Completed Not Available [facility] 3 02:53:31 Essential hypertens ion 67042950 Active 2017 Not Available [facility] 3 12:11:45 Urinary tract infectiou s disease 39576604 Completed Not Available [facility] 3 02:53:31 Sleep apnea 42202940 Active 2021 Not Available [facility] 3 12:11:46 Palpitati ons 05688400 Active 2017 Not Available [facility] 3 12:11:46 Hyperglyc emia 53588457 Active 2022 Not Available [facility] 3 12:11:46 Ankylosin g spondylit is 2571254 Active 2022 Not Available [facility] 3 12:11:46 COVID-19 824490050 Active 2022 Gavino Han MD [address] [place] [address], [address], [address] , [place] [facility] [employer] [facility] 3 14:22:22 Notes:Medical History: Anxie ty/Depression Migraine headaches Rhinitis with postnasal drip Bruxism Early REM onset Obesity with mod OSAHS, AHI = 15, 10/16/21, on CPAP c/o IVRC Hypertension Insulin resistance ANUJ Ankylosing spondylitis OA Procedure History: 2 c-sections 1994. 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 Procedures Surgical History Date Name Laterality Status Provider Name and Address Organization Details Recorded Time 03/01/20 13 partial cystectomy completed Not Available [facility] 05/22/2022 02:47:42 03/01/20 13 removal of ovarian cyst completed Not Available [facility] 05/22/2022 02:47:42 04/27/19 10 Ablation completed Not Available [facility] 05/22/2022 02:47:42 02/08/20 09 hysteroscopy completed Not Available [facility] 05/22/2022 02:47:42 09/16/18 97 completed Not Available [facility] 05/22/2022 02:47:42 09/16/18 97 Tubal Ligation completed Not Available [facility] 05/22/2022 02:47:42 03/08/19 95 completed Not Available [facility] 05/22/2022 02:47:42 Cholecystectomy completed Not Available [facility] 05/22/2022 02:47:42 Imaging Results Imaging Date Name Status LastModified by Organiz ation Details LastModified Time 02/20/2023 CT, angiogram, chest, w/ contrast completed [place] [address], [place], [address], 02/22/2023 08:14:51 02/22/2024 XR, chest, 2 view completed [email or web address] [facility] [address] [facility], [place], [address], 02/27/2024 13:42:03 Procedure Notes None recorded. Medical Equipment None Reported. Allergies No known drug allergies Medications Name Sig Start Date Stop Date Status Note LastModified by Organization Details LastModified Time cyclobenz aprine 10 mg tablet Take 1 tablet every day by oral route as needed. active Not Available Not Available No t Available amoxicill in 500 mg capsule Take 1 capsule every 8 hours by oral route for 7 days. active Not Available Not Available No t Available metformin 500 mg tablet Take 1 tablet every day by oral route. active Not Available Not Available No t Available bupropion HCl SR 150 mg tablet,12 hr sustained -release active Not Available Not Available Not Available neomycin- polymyxin -hydrocor t 3.5 mg/mL-10, 000 unit/mL-1 % ear solution active Not Available Not Available Not Available prednison e 10 mg tablet take po as directed active Not Available Not Available No t Available Vitamin C 500 mg tablet Take by oral route. 2014 active otc Not Available Not Available Not Avai lable azithromy fernando 250 mg tablet TAKE 2 TABLETS BY MOUTH ON DAY 1 THEN 1 TABLET BY MOUTH EVERY DAY FOR 4 DAYS 02/27 completed Not Available Not Available Not Available ibuprofen 800 mg tablet TAKE 1 TABLET BY MOUTH EVERY 8 HOURS NEEDED FOR PAIN 01/23 completed changed to OTC Not Available Not Available Not Available tizanidin e 4 mg tablet Take 1 tablet every day by oral route at bedtime. 06/09 completed Not Available Not Available Not Available fluconazo le 150 mg tablet TAKE 1 TABLET BY MOUTH NOW 06/09 completed Not Available Not Available Not Available benzonata te 200 mg capsule TAKE 1 CAPSULE BY MOUTH THREE TIMES DAILY 02/27 completed Not Available Not Available Not Available lisinopri l 20 mg tablet TAKE 1 TABLET BY MOUTH DAILY active Not Available Not Available No t Available ondansetr on HCl 4 mg tablet TK 1 T PO Q 8 H PRN 06/09 completed Not Available Not Available Not Available prednison e 20 mg tablet TAKE 2 TABLETS BY MOUTH EVERY DAY FOR 5 DAYS 02/27 completed Not Available Not Available Not Available dextroamp hetamine- amphetami ne 10 mg tablet TAKE 1 TABLET BY MOUTH EVERY AFTERNOO N 01/23 completed changed to Vyanse Not Available Not Available Not Available sertralin e 100 mg tablet TAKE 1 TABLET BY MOUTH EVERY DAY active Not Available Not Available No t Available prednison e 5 mg tablet 04/24 completed Not Available Not Available Not Available sulfasala zine 500 mg tablet,de layed release active Not Available Not Available Not Available topiramat e 25 mg tablet TAKE 1 TABLET BY MOUTH TWICE A DAY active Not Available Not Available No t Available amlodipin e 2.5 mg tablet Take 1 tablet every day by oral route. active Not Available Not Available No t Available metronida zole 500 mg tablet TAKE 1 TABLET BY MOUTH TWICE DAILY 01/30 completed Not Available Not Available Not Available valacyclo vir 500 mg tablet TAKE 1 TABLET BY MOUTH TWICE DAILY FOR 7 DAYS 05/01 completed Not Available Not Available Not Available sulfameth oxazole 800 mg-trimet hoprim 160 mg tablet TK 1 T PO Q 12 H FOR 5 DAYS active Not Available Not Available No t Available tramadol 50 mg tablet TAKE 1 TABLET BY MOUTH THREE TIMES DAILY WITH TYLENOL FOR PAIN CONTROL active Not Available Not Available No t Available triamcino lone acetonide 0.1 % topical cream active Not Available Not Available Not Available lamotrigi ne 25 mg tablet 05/01 completed Not Available Not Available Not Available meloxicam 7.5 mg tablet 12/20 completed Not Available Not Available Not Available oxycodone -acetamin ophen 5 mg-325 mg tablet TK 1-2 TS PO Q 4 H active Not Available Not Available No t Available amoxicill in 875 mg tablet TAKE 1 TABLET BY MOUTH TWICE DAILY UNTIL ALL TABLETS ARE TAKEN 01/23 completed Not Available Not Available Not Available methocarb nuvia 750 mg tablet 05/29 completed Not Available Not Available Not Available meclizine 25 mg tablet TAKE 1 TABLET BY MOUTH TWICE DAILY NEEDED FOR DIZZINES S 01/31 completed Not Available Not Available Not Available triamcino lone acetonide 0.1 % topical ointment 02/20 completed Not Available Not Available Not Available lisinopri l 10 mg tablet TAKE 1 TABLET BY MOUTH EVERY DAYnee ds appt active Not Available Not Available No t Available diclofena c sodium 25 mg tablet,de layed release Take 1 tablet twice a day by oral route as needed. 12/05 completed Not Available Not Available Not Available gabapenti n 300 mg capsule active Not Available Not Available Not Available Adderall XR 10 mg capsule,e xtended release TAKE 1 CAPSULE BY MOUTH EVERY MORNING 01/23 completed changed to Vyanse Not Available Not Available Not Available diclofena c sodium 75 mg tablet,de layed release active Not Available Not Available Not Available magnesium 250 mg tablet Take by oral route. 2014 active otc Not Available Not Available Not Avai lable Imitrex 100 mg tablet Take by oral route. 2014 active Not Available Not Available Not Avai lable azelastin e 137 mcg (0.1 %) nasal spray USE 2 SPRAYS IN EACH NOSTRIL TWICE DAILY 01/30 completed Not Available Not Available Not Available lisinopri l 10 mg-hydroc hlorothia zide 12.5 mg tablet Take 1 tablet every day by oral route. active Not Available Not Available No t Available methylpre dnisolone 4 mg tablets in a dose pack FOLLOW PACKAGE DIRECTIO NS 12/05 completed Not Available Not Available Not Available albuterol sulfate HFA 90 mcg/actua tion aerosol inhaler INHALE 2 PUFFS EVERY 6 HOURS IF NEEDED FOR WHEEZING . active Not Available Not Available No t Available fluticaso ne propionat e 50 mcg/actua tion nasal spray,golden pension 2 sprays each nostril at supper time 06/20 completed Not Available Not Available Not Available metformin ER 500 mg tablet,ex tended release 24 hr TAKE 1 TABLET BY MOUTH AT BEDTIME active Not Available Not Available No t Available sertralin e 50 mg tablet TAKE 1 TABLET BY MOUTH EVERY DAY 05/01 completed Not Available Not Available Not Available lamotrigi ne 100 mg tablet active Not Available Not Available Not Available naproxen 500 mg tablet TK 1 T PO BID PRN 11/22 completed Not Available Not Available Not Available diazepam 5 mg tablet 45 min prior will have to be driven to and from 01/31 completed Not Available Not Available Not Available amoxicill in 875 mg-potass ium clavulana te 125 mg tablet TAKE 1 TABLET BY MOUTH TWICE DAILY 02/27 completed Not Available Not Available Not Available escitalop augustine 10 mg tablet Take 1 tablet every day by oral route. 01/21 completed Not Available Not Available Not Available atomoxeti ne 25 mg capsule 01/23 completed changed to Vyanse Not Available Not Available Not Available cyclobenz aprine 5 mg tablet 11/22 completed Not Available Not Available Not Available bupropion HCl XL 300 mg 24 hr tablet, extended release 12/05 completed Not Available Not Available Not Available bupropion HCl XL 150 mg 24 hr tablet, extended release TAKE 1 TABLET BY MOUTH EVERY MORNING 05/01 completed Not Available Not Available Not Available metoprolo l tartrate 25 mg tablet TAKE 1 TABLET BY MOUTH EVERY MORNING active Not Available Not Available No t Available topiramat e 50 mg tablet Take 1 tablet every day by oral route for 30 days. 04/06 completed Not Available Not Available Not Available naproxen 2012 active Not Available Not Available Not Avai lable potassium 2014 active otc 595 mg Not Available Not Available Not Available multivita min 2014 active otc Not Available Not Available Not Avai lable Vyvanse 40 mg capsule TAKE 1 CAPSULE BY MOUTH EVERY MORNING 01/30 completed Not Available Not Available Not Available Vitamin D3 50 mcg (2,000 unit) capsule Take by oral route. 2014 active otc Not Available Not Available Not Avai lable Ozempic 0.25 mg or 0.5 mg (2 mg/1.5 mL) subcutane ous pen injector Inject 0.25 mL every week by subcutan eous route. active Not Available Not Available No t Available Wegovy 0.25 mg/0.5 mL subcutane ous pen injector inject 0.25wkly for 4wks then go to 0.5mg wkly for 4wks 04/24 completed Not Available Not Available Not Available Paxlovid 300 mg (150 mg x 2)-100 mg tablets in a dose pack TAKE 2 TABLETS (NIRMATR HEIDI) AND TAKE 1 TABLET (RITONAV IR) BY MOUTH TWICE A DAY FOR 5 DAYS 02/27 completed Not Available Not Available Not Available Vitals Date Recorded Body height Body mass index (BMI) Body weight Body temperature Heart rate Systolic blood pressure Diastolic blood pressure Provider Name and Address Organization Details Last Updated DateTime 3 172.72 cm 35.9 kg/m2 412841. 8 g 97.7 [degF] 64 /min 124 mm[Hg] 80 mm[Hg] MIKY Hayward [facility] [employer] 3 13:38:00 Date Recorded Body height Body mass index (BMI) Body weight Body temperature Heart rate Systolic blood pressure Diastolic blood pressure Provider Name and Address Organization Details Last Updated DateTime 3 172.72 cm 34.8 kg/m2 899775. 65 g 97.7 [degF] 70 /min 126 mm[Hg] 88 mm[Hg] MIKY Hayward [facility] [employer] [facility] 3 10:50:33 Date Recorded Body height Body mass index (BMI) Body weight Body temperature Heart rate Systolic blood pressure Diastolic blood pressure Provider Name and Address Organization Details Last Updated DateTime 3 172.72 cm 35.3 kg/m2 785589. 43 g 98.6 [degF] 61 /min 120 mm[Hg] 74 mm[Hg] [facility] [employer] [facility] 3 13:50:39 Date Recorded Body mass index (BMI) Body height Heart rate Body temperature Body weight Systolic blood pressure Diastolic blood pressure Provider Name and Address Organization Details Last Updated DateTime 3 35.4 kg/m2 172.72 cm 69 /min 97.7 [degF] 068427. 02 g 126 mm[Hg] 80 mm[Hg] Not Available [facility] 3 02:51:37 Date Recorded Body mass index (BMI) Heart rate Body height Oxygen saturation Oxygen saturation in Arterial blood by Pulse oximetry Heart rate Respiratory rate Body temperature Body weight Systolic blood pressure Diastolic blood pressure Provider Name and Address Organization Details Last Updated DateTime 3 35.3 kg/m2 61 /min 172.72 cm 97 % 97 % 61 /min 15 /min 98.9 [degF] 650625. 43 g 122 mm[Hg] 76 mm[Hg] Not Available [facility] 3 02:51:37 Social History Question Answer Notes LastModified by Organizat ion Details LastModified Time Tobacco Smoking Status Former Smoker MIKY Mena, ERIC [place]DA[place]A [place] [employer] [facility] 12/05/2022 10:46:24 Do You Have An Advance Directive? No [id number] Information not available 05/22/2022 What Is Your Level Of Alcohol Consumption? Occasional [id number] Information not available 05/22/2022 Do You Wear A Helmet When Biking? Yes Information not available 12/05/2022 What Is Your Level Of Caffeine Consumption? Moderate [id number] Information not available 05/22/2022 How Much Tobacco Do You Chew? None [id number] Information not available 05/22/2022 In The 14 Days Before Symptom Onset, Have You Had Close Contact With A Laboratory-confir med COVID-19 While That Case Was Ill? No Information not available 12/05/2022 In The 14 Days Before Symptom Onset, Have You Had Close Contact With A Person Who Is Under Investigation For COVID-19 While That Person Was Ill? No Information not available 12/05/2022 What Type Of Diet Are You Following? REGULAR [id number] Information not available 05/22/2022 Which Illicit Or Recreational Drugs Have You Used? None Information not available 12/05/2022 Do You Or Have You Ever Used E-cigarettes Or Vape? Never Used Electronic Cigarettes Information not available 12/05/2022 What Is The Highest Grade Or Level Of School You Have Completed Or The Highest Degree You Have Received? [id number] Information not available 12/05/2022 Do You Have An Electrostatic Air Filter? No Information not available 12/05/2022 What Is Your Occupation? [employer] Information not available 12/05/2022 Have There Been Any Changes To Your Family Or Social Situation? No Information no t available 12/05/2022 Are There Any Guns Present In Your Home? No Information not available 12/05/2022 Do You Have A Humidifier? Yes Information not available 12/05/2022 Do You Use Insect Repellent Routinely? Yes Information not available 12/05/2022 Where Do You Live? [place] Information not available 12/05/2022 Do You Have A Medical Power Of Wall To Wall Carpet Installer? No Information not available 12/05/2022 Do You Have Moisture Problems In Your Home? No Information not available 12/05/2022 What Was The Date Of Your Most Recent Tobacco Screening? 02/27/2023 [email or web address] Information not available 02/27/2023 Do You Have Any Pets? Yes Information not available 12/05/2022 What Is Your Relationship Status? [id number] Information not available 05/22/2022 Do You Use Your Seat Belt Or Car Seat Routinely? Yes Information not available 12/05/2022 Do You Have Smoke And Carbon Monoxide Detectors In Your Home? Yes Information not available 12/05/2022 Are You Passively Exposed To Smoke? Yes Information no t available 12/05/2022 Do You Or Have You Ever Used Smokeless Tobacco? Never Used Smokeless Tobacco [id number] Information not available 05/22/2022 Are There Any Smokers In Your House? Yes Information not available 12/05/2022 How Much Tobacco Do You Smoke? No [id number] Information not available 05/22/2022 Do You Feel Stressed (tense, Restless, Nervous, Or Anxious, Or Unable To Sleep At Night)? [id number] Information not available 12/05/2022 Do You Use Any Illicit Or Recreational Drugs? No Information not available 12/05/2022 Do You Use Sunscreen Routinely? Yes Information not available 12/05/2022 Have You Recently Traveled Abroad? No Information not available 12/05/2022 Do You Have Any Dietary Restrictions? No Information not available 12/05/2022 Do You Or Have You Ever Used Any Other Forms Of Tobacco Or Nicotine? No Information not available 12/05/2022 Sex: Female Functional Status Question Answer Note LastModified by Organizat ion Details LastModified Time What is your exercise level? Moderate [id number] Information not available 05/22/2022 Mental Status None recorded. Family History Relationship Description Onset Age of this Age Resolved Age Notes LastModified by Organization Details LastModified Time Unspecified Relation Diabetes mellitus [id number] Not available 05/22/2022 02:47:46 Sister Malignant tumor of breast 36 LIVING [employer]ahl Not available 2022 10:46:23 Mother Squamous cell carcinoma of mouth cyahl Not available 2022 10:46:23 Mother Obstructive sleep apnea syndrome cyahl Not available 2022 10:46:23 Son Diabetes mellitus 27 [id number] Not available 05/22/2022 02:47:47 Medical History Condition Response NERVE DISEASE N BLINDNESS N RHEUMATIC FEVER N KIDNEY STONES N BLADDER PROBLEMS N MRSA N OTHER # 1 Y POLIO N LUNG DISEASE/DISORDER N HISTORY OF DRUG ABUSE N RADIATION / CHEMOTHERAPY N COPD N Other # 2 Y BLOOD DISEASES N SURGERY N EAR OR HEARING PROBLEMS N MUMPS N SHINGLES N BOWEL PROBLEMS N DEPRESSION (INCLUDING POST ) Y STROKE/TIA N ULCERS N BENIGN PROSTATIC HYPERPLASIA N MEASLES N HYPOTENSION N MYOCARDIAL INFARCTION N OBESITY N GERD/NAUSEA N ANEURYSM N URINARY/BLADDER/KIDNEY PROBLEMS Y CORONARY ARTERY DISEASE (CAD) N ADDICTION CONCERNS N ENDOMETRIOSIS N Impotence N USE OF BLOOD THINNERS N SKIN PROBLEMS N GASTROINTESTINAL DISORDER N PERIPHERAL VASCULAR DISEASE N MUSCLE,JOINT OR BONE PROBLEMS N GASTROINTESTINAL BLEEDING N BLOOD CLOTS N ASTHMA N CATARACTS N ERECTILE DYSFUNCTION N VARICOSITIES N GI PROBLEMS N Low Testosterone N INFERTILITY N AIDS/HIV N CHEMOTHERAPY / RADIATION N LIVER DISEASE N MALE HYPOGONADISM N HYPERTENSION Y Deficiency N TOURETTE'S N ANXIETY DISORDER Y BLOOD TRANSFUSION N ANEMIA/BLOOD DISORDER N CHRONIC EAR INFECTIONS N BRONCHITIS N TUBERCULOSIS N GLAUCOMA N FOOT PROBLEM N DIVERTICULITIS N CHICKENPOX N SLEEP APNEA N INFECTIOUS DISEASE N HEART ARRHYTHMIA N PROSTATE N INSOMNIA N HIGH CHOLESTEROL / HYPERLIPIDEMIA N HYPERTHYROIDISM N EYE PROBLEMS N NEUROLOGICAL PROBLEMS N EDEMA N CHRONIC PAIN SYNDROME N HYPOTHYROIDISM N CAROTID BLOCKAGE N CONSTIPATION N BACK / NECK PROBLEMS N HAVE YOU BEEN HOSPITALIZED OR SEEN IN [facility] ER IN THE PAST YEAR ? N ATHEROSCLEROSIS N BREAST PROBLEMS N DIALYSIS N ECZEMA N OSTEOPOROSIS N ARTHRITIS N APPENDICITIS N DIABETES, TYPE N BAD TEETH N ENT N HEARTBURN / REFLUX N AUTISM SPECTRUM DISORDER (ASD) N HEPATITIS / LIVER DISEASE N GOUT N SLEEP DISORDER N ALZHEIMER'S DISEASE N Brain Problems N HERPES N DEMENTIA N HEADACHES/MIGRAINES Y SEIZURES/EPILEPSY N VASCULAR DISEASE N PACEMAKER N Blood Disorder N DIZZINESS N HEART DISEASE/HEART PROBLEMS N KIDNEY DISEASE N MULTIPLE SCLEROSIS N CARDIAC ARRHYTHMIA N CANCER: SPECIFY N ATRIAL FIBRILLATION N Gall Stones N PULMONARY EMBOLISM N AUTOIMMUNE DISEASE N Gynecological History Statement/Question Response Date of Last Pap 11/29/2014 Abnormal Pap Y Date of Last Mammogram 12/06/2016 Current Control Method Tubal Ligat ion Sexually Active? Y Obstetrics History GPAL:G 2 P 2 0 0 2 Type Value Full Term 2 Living 2 Total 2 Immunizations Vaccine Type Date Status Note Provider Nam e and Address Organization Details Recorded Time COVID-19, mRNA, LNP-S, PF, 100 mcg/0.5mL dose or 50 mcg/0.25mL dose 03/15/2021 completed Not Available Formerly [facility], 1928–1983 3 07:05:40 COVID-19, mRNA, LNP-S, PF, 100 mcg/0.5mL dose or 50 mcg/0.25mL dose 04/20/2020 completed Not Available [facility]ly [facility], [facility]–1983 3 07:05:40 COVID-19, mRNA, LNP-S, PF, 100 mcg/0.5mL dose or 50 mcg/0.25mL dose 03/29/2020 completed Not Available [facility]ly [facility], [facility]–1983 3 07:05:40 Past Encounters Encounter ID Performer Location Encounter Start Date Encounter Closed Date Diagnosis/Indication Diagnosis SNOMED-CT Code Diagnosis ICD10 Code Diagnosis Note [id number] [facility] Leena montiel [address] , [place] [address] 06/20/2020 00:00:00 06/24/2020 11:27:16 [id number] [facility] [place] [address] [place] [address] , [address] [address] 01/23/2021 00:00:00 01/24/2021 21:50:15 [id number] [facility] [place] [address] , [place] [address] 01/30/2021 00:00:00 04/13/2021 21:01:12 [id number] [facility] [place] [address] [place] [address] y , [place] [address] 05/01/2021 00:00:00 05/26/2021 17:23:11 [id number] [facility] [place] [address] [place] [address] , [address] [address] 08/06/2021 00:00:00 09/08/2021 15:19:55 [id number] [facility] [place] [address] [place] [address] y , [place] [address] 09/04/2021 00:00:00 10/05/2021 21:14:41 [id number] [facility] [place] [address] [place] [address] y , [place] [address] 11/22/2021 00:00:00 12/08/2021 15:00:00 [id number] [facility] Internal Med [facility] [address] [place] [address] , [address] [address] 11/28/2021 00:00:00 12/30/2021 21:23:03 [id number] [facility] [place] [address] [place] [address] y , [place] [address] 12/20/2021 00:00:00 12/23/2021 21:57:53 [id number] [facility] [place] [address] [place] [address] y , [place] [address] 01/31/2022 00:00:00 01/31/2022 21:47:42 [id number] [facility] Leena montiel [address] [place] [address] [address] 04/09/2022 00:00:00 04/09/2022 10:51:09 [id number] S_G Pulmonolo gy [address] [address] 04/24/2022 00:00:00 04/24/2022 10:13:15 [id number] Gavino Han MD [facility] Internal Med [address] [address] 07/26/2022 12:55:15 07/26/2022 13:55:13 Essential hypertension 13571434 I10 Hyperglycemia 78876768 R 73.9 Ankylosing spondylitis 7855704 M45.0 [id number] Gavino Han MD [facility] Internal Med Leena montiel [address] [place] [address] [address] 12/05/2022 10:44:57 12/05/2022 11:47:27 Adult health examination 489780096 Z00.00 Depression screening 171 555829 Z13.31 Normal bod y mass index 10597334 Z68.34 Screening mammography 24 570340 Z12.31 Screening for malignant neoplasm of colon 021041277 Z12.11 Essential hypertension 24434283 I10 Migraine 36405577 G43.90 9 Ankylosing spondylitis 7144193 M45.0 [id number] Gavino Han MD [facility] Internal Med Leena montiel [address] [place] [address] [address] 02/27/2023 13:41:48 02/27/2023 14:16:18 COVID-19 [id number] U07.1 Health Concerns Section Related Observation LastModified by Organization Detai ls LastModified Time None Recorded Concern Status LastModified by Organization Details LastModified Time None Recorded Advance Directives Directive N: Payers Encounter Date Sequence Insurance Name Policy Number Policy Raines Covered Member ID Raines Member ID Guarantor Name 07/26/2022 1 [facility] [id number] Nae Choudhary Garett [id number] Nae Choudhary Garett 12/05/2022 1 [facility] [id number] Nae Choudhary Garett [id number] Nae Choudhary Garett 02/27/2023 1 [facility] [id number] Nae Choudhary Garett [id number] Nae Choudhary Garett Notes Date Note Type Note Provider Name and Address Organization Details Recorded Time 3 text/html Hypertension seems to be doing fine no headache or dizzinessHyperglycemia needs [id number] stableAnkylosing spondylitis taking infusion Gavino Han MD [address], [place], [address], [employer] [facility] [employer] 07/28/2022 11:11:14 3 text/html ankylosing spondylitis seems to be stable migraines are doing okay hypertension no headache no dizziness wellness completed Gavino Han MD [address], [place], [address], [employer] [place] [employer] 12/05/2022 21:39:46 3 text/html COVID she still has some problems breathing CT angiogram in the emergency room was negative not coughing anything up Gavino Han MD [address], [place], [address], [employer] [facility] [employer] [facility] 02/27/2023 14:22:39 OBGyn Episode No OBEpisode recorded.
--- OUTSIDE RECORDS SUMMARY | 2024-06-21 12:42 | XMS_ITS | CONTINUITY OF CARE DOCUMENT ---
Author Name baileymercedes, corinnaquiana Address Unknown Organization [facility] Address [address] [place] [address] Phone [phone] Care Team Providers Care Copra Sampler Name Role Phone Errol HURLEY, Donaldo Unavailable ELI ASSISTANT LIBRARIAN, SHAUNNA Unavailable GUEVARA ISLAS MD Unavailable PROBLEMS Condition Status Date Provider Notes Palpitations active Donaldo Norton MD INSURANCE PROVIDERS Payer name Policy type / Coverage type [place] red green party ID [facility] [id number] HISTORY OF PROCEDURES Procedure Date Procedure Name Provider Procedure Notes S tatus WINSTON Norton MD c ompleted
--- OUTSIDE RECORDS SUMMARY | 2024-06-21 12:42 | XMS_ITS | Patient Health Record ---
Author Organization [facility] Address [address] [facility] [address] [place] [address] Care Team Providers Care Traffic I Manager Name Role Phone Samantha Hi Unavailable [phone] Migration, Provider Unavailable Unavailable Reason For Referral No Information Medications Medication SIG (Take, Route, Frequency, Duration) Notes Start Date End Date Status Lisinopril 20 MG Oral Act alirio Sertraline HCl 100 mg TAKE 1 & 1/2 TABLE TS BY MOUTH DAILY for 28 Active Metoprolol Tartrate 25 MG Oral Active Cyclobenzaprine HCl 5 MG Oral Active Gabapentin 300 MG Oral Ac tive Diclofenac Sodium 75 MG Oral Active sulfaSALAzine 500 MG Oral Active Topiramate 25 MG Oral Act alirio amLODIPine Besylate 2.5 MG Oral Active metFORMIN HCl ER 500 MG Oral Active Benzonatate 200 MG Oral A ctive buPROPion HCl ER (SR) 150 mg TAKE 1 TABL ET BY MOUTH TWICE A DAY for 28 Active Amoxicillin 875 MG Oral A ctive ProAir HFA 108 (90 Base) MCG/ACT Inhalation Active lamoTRIgine 100 mg TAKE 1 TABLET BY DAILY for 28 Active traMADol HCl 50 MG Oral A ctive Encounters Encounter Location Date Provider Diagnosis [facility] [address] [facility] [address] [place] [address] 06/24/2023 Provider Migration Depression, unspecified F32.A and Attention-deficit hyperactivity disorder, unspecified type F90.9 [facility] [address] [facility] [address] [place] [address] 08/09/2023 Provider Migration [facility] [employer] [place] [address] [facility] [address] [place] [address] 08/10/2023 Provider Migration Assessments Encounter Date Diagnosis (ICD Code) Assessment Notes Treatment Notes Treatment Clinical Notes Section Notes 06/24/2023 Attention-deficit hyperactivity disorder, unspecified type (ICD-10 - F90.9) 06/24/2023 Depression, unspecified (ICD-10 - F32.A) Plan Of Treatment No Information Insurance Providers Payer Name Payer Address Payer Phone Subscriber Number Group Number Insured Name Patient Relationship to Insured Coverage Start Date Coverage End Date [facility] [address] [place] [address] [id number] KAMERON LANIER Self - patient is the insured
--- NOTE | 2024-06-21 15:38 | ED_ITS ---
HPI - Neck Pain/Injury General Chief Complaint: Neck Pain/Injury Stated Complaint: bilateral tinnitus, dizziness, neck stiff Time Seen by Provider: 06/21/24 14:57 Source: patient Mode of arrival: ambulatory Limitations: no limitations History of Present Illness HPI Narrative: Patient presents with report of chronic bilateral tinnitus x6 months as well as neck pain and stiffness particularly along the left side of her neck x1.5 weeks. Also having dizziness. She feels like she can hear fluid in her neck/head. No blurred/double vision. Has never had imaging. Has seen PCP (Lizzy Tom) and ENT ([facility]). Denies any intervention being done, no meds, not helping. 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 Occasionally experiences a sharp pain in her ears. Dizziness is worse when changing position going from sitting to standing. Not particularly with head movements since those are limited. Difficulty turnign head to the left. No fever/illness/chills. Has a history of ankylosing spondylitis. For pain took diclofenac as well as old Rx for Flexeril also prednisone. Feels like she is drunk. Not lightheaded but feels off balance. Room spins if she closes her eyes or stands up. Related Data Home Medications ?Medication ?Instructions ?Recorded ?Confirmed ?Last Taken ?Type acetaminophen 500 mg capsule 500 mg PO Q6H PRN Pain 08/28/21 02/22/24 Unknown History bupropion HCl 300 mg 24 hr tablet, 300 mg PO QAM 08/28/21 02/22/24 Unknown History extended release gabapentin 300 mg capsule 300 mg PO DAILY 08/28/21 02/22/24 Unknown History lamotrigine 100 mg tablet 100 mg PO DAILY 08/28/21 02/22/24 Unknown History amlodipine 2.5 mg tablet 2.5 mg PO DAILY 12/28/21 02/22/24 Unknown History lisinopril 10 mg tablet 20 mg PO DAILY 12/28/21 02/22/24 Unknown History metoprolol tartrate 25 mg tablet 25 mg PO DAILY 12/28/21 02/22/24 Unknown History prednisone 5 mg tablet 5 mg PO TID 12/28/21 02/22/24 Unknown History sulfasalazine 500 mg tablet 1 g PO BID 12/28/21 Unknown History topiramate 25 mg tablet 50 mg PO DAILY 12/28/21 02/22/24 Unknown History Allergies Allergy/AdvReac Type Severity Reaction Status Date / Time No Known Allergies Allergy Verified 06/21/24 11:14 [facility] Past Medical History Medical History Right hand dominant Rotator cuff tendonitis Left shoulder pain Shoulder impingement Surgical History Surgical History History of cholecystectomy 1995 Hx of prior ablation treatment 2008 History of 1996 Family History Family History Unknown Family history of cancer oral and sarcoma Family history of kidney disease Other Asthma Depression Diabetes mellitus Heart disease Hypertension Social History Social History Smoking status: Never smoker Alcohol intake: current Drinks per week: 6 Substance use: current Substance use type: marijuana Occupation/Education: occupation 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 HEAD: Normocephalic, atraumatic. EYES: Non injected, non icteric. EOMI w/o nystagmus. ENT: Nares clear, no rhinorrhea or epistaxis. NECK: Demonstrates flexion and extension. Head slightly held straight but not in fixed position. Able to demonstrate approximately 45 degrees of movement from midline to the right but only about 20 degrees from midline to the left. No atrophy of sternocleidomastoid muscles. Demonstrates ability to engage trapezius muscles to shrug shoulders including against resistance. TTP of muscle at insertion site at occiput. CHEST: Speaking in full sentences. No respiratory distress. HEART: Regular rate and rhythm. . ABDOMEN: Soft, nondistended. EXTREMITIES: Normal range of motion. No lower extremity edema. SKIN: Warm, dry, no rash. NEURO: No focal deficits. Alert and oriented x3. PSYCH: Normal mood and affect. Course Vital Signs Vital signs: Vital Signs Temperature 97.3 F L 06/21/24 11:15 Pulse Rate 89 06/21/24 11:15 Respiratory Rate 16 06/21/24 11:15 Blood Pressure 150/90 H 06/21/24 11:15 Pulse Oximetry 100 06/21/24 11:15 Oxygen Delivery Room Air 06/21/24 11:15 Temperature 97.3 F L 06/21/24 11:15 Pulse Rate 80 06/21/24 18:15 Respiratory Rate 16 06/21/24 18:15 Blood Pressure 143/90 H 06/21/24 18:15 Pulse Oximetry 97 06/21/24 18:15 Oxygen Delivery Room Air 06/21/24 11:15 MDM - Neck Pain/Injury MDM Narrative Medical decision making narrative: Patient presents with chronic bilateral tinnitus, subacute left sided neck stiffness, and dizziness. In the emergency department she is afebrile vital signs notable for hypertension. Orthostatics unremarkable. Feeling better after meclizine, not completely resolved but work up complete and does not feel comfortable proceeding with receiving Valium as she needs to be able to drive. Will DC with Rx for both meclizine and Valium. Advised to f/u with PCP, ENT, and neurology (provided referral for the latter). Differential Diagnosis Differential diagnosis: Likely disc disorder of cervical region, closed subluxation of cervical spine, fracture of cervical spine without lesion of spinal cord, cervical radiculopathy, vertebral artery dissection, torticollis, cervical spondylosis, strain of neck muscle and other (orthostasis, BPPV, Meniere's , labyrinthitis; vestibular neuronitis) Lab Data Attestation: I reviewed the patient's lab results. Lab results narrative: CBC and chemistry generally unremarkable. 06/21/24 16:05 06/21/24 16:19 Labs: Lab Results 06/21/24 06/21/24 Range/Units 16:05 16:19 WBC 7.6 (4.5-10.0) K/mm3 RBC 4.50 (4.2-5.4) M/mm3 Hgb 13.9 (12.0-15.0) g/dL Hct 41.5 (37.0-47.0) % MCV 92.2 (80-100) fl MCH 30.9 (26-34) pg MCHC 33.5 (32-36) g/dl RDW 14.1 (11.5-14.5) % Plt Count 183 (150-375) k/mm3 MPV 10.8 H (7.4-10.4) fl Immature Gran % (Auto) 0.4 (0-0.5) % Neut % (Auto) 55.8 (45.5-73.1) % Lymph % (Auto) 33.0 (18.3-44.2) % [place] % (Auto) 7.9 (2.6-8.5) % Eos % (Auto) 2.0 (0-4.4) % Baso % (Auto) 0.9 (0.2-1.2) % Lymph # (Auto) 2.52 (0.9-3.2) K/mm3 [place] # (Auto) 0.6 (0.1-0.6) K/mm3 Eos # (Auto) 0.2 (0-0.3) K/mm3 Baso # (Auto) 0.1 (0.0-0.1) K/mm3 Abs Immat Gran (auto) 0.03 (0.00-0.031) K/mm3 Absolute Neuts (auto) 4.3 (1.3-6.7) K/mm3 Absolute Nucleated RBC 0.000 (0.0-0.012) K/mm3 Nucleated RBC % 0.0 (0.0-0.2) % Sodium 141 (137-145) mmol/L Potassium 4.0 (3.4-5.0) mmol/L Chloride 105 (98-107) mmol/L Carbon Dioxide 23 (22-30) mmol/L Anion Gap 13 H (4-12) mmol/L BUN 9 (7-17) mg/dL Creatinine 0.83 0.90 (0.7-1.0) mg/dL Estim Creat Clear Calc 88 82 ml/min Estimated GFR > 60 > 60 (59 - ) Glucose 97 (65-110) mg/dL Calcium 9.6 (8.4-10.2) mg/dL Imaging Data Radiologist's impression: IMPRESSION: 1. 0% stenosis of the right and left carotid bulbs relative to normal distal artery lumen diameter (NASCET criteria). 2. Normal brain and unremarkable cerebral CT angiogram. 3. 1.8 cm left thyroid nodule. Consider thyroid ultrasound for risk stratification. ECG Data EKG #1: Attestation: I personally reviewed and interpreted this ECG as follows: ECG completion date: 06/21/24 ECG completion time: 16:37 Interpretation: Normal sinus rhythm at a rate of 78 beats per minute. SD interval 174. QRS 92. QT/QTC 398/432. Good R-wave progression across the precordial leads. T-wave inversion in 3 but normal in contiguous inferior leads 2 and AVF. No other T- wave inversions. Discharge Plan Discharge Clinical Impression: Left thyroid nodule, Neck pain on left side, Dizziness, Torticollis Patient Disposition: Home, Self-Care Condition: Stable Instructions: Antibiotic Form, Spasmodic Torticollis (ED), Thyroid Nodules (ED), Dizziness (ED), Neck Pain (ED) Additional Instructions: On your imaging you had 1.8 cm left thyroid nodule. Consider thyroid ultrasound for risk stratification. Your PCP can help arrange this in the outpatient setting. You responded well to the meclizine you were given for dizziness so this is being prescribed. For muscle relaxation of the neck you can use the prescribed diazepam. Follow-up with primary care physician, peg driver/ENT physician, or, alternatively, you can see neurology (referral listed below). Patient Language: Urdu Prescriptions: New meclizine 25 mg tablet 25 mg PO BID PRN (Reason: dizziness) Qty: 30 0RF diazepam [Valium] 5 mg tablet 5 mg PO HS PRN (Reason: muscle spasm) Qty: 7 0RF No Action lisinopril 10 mg tablet 20 mg PO DAILY topiramate 25 mg tablet 50 mg PO DAILY albuterol sulfate 90 mcg/actuation HFA aerosol inhaler 2 puff inhalation Q4-6H PRN (Reason: shortness of breath or wheezing) 30 Days Qty: 8.5 0RF bupropion HCl 300 mg tablet extended release 24 hr 300 mg PO QAM lamotrigine 100 mg tablet 100 mg PO DAILY gabapentin 300 mg capsule 300 mg PO DAILY acetaminophen 500 mg capsule 500 mg PO Q6H PRN (Reason: Pain) amlodipine 2.5 mg tablet 2.5 mg PO DAILY prednisone 5 mg tablet 5 mg PO TID sulfasalazine 500 mg tablet 1 g PO BID Rx Instructions: give with food (meal/snack) metoprolol tartrate 25 mg tablet 25 mg PO DAILY meclizine 25 mg tablet 25 mg PO BID PRN (Reason: dizziness) Qty: 14 0RF prednisone 20 mg tablet 40 mg PO DAILY Qty: 5 0RF Follow-up/Referrals: Ryan Burgess MD [Physician] - (neurology) Vaishali,MURPHY [place] [Primary Care Provider] - Stand Alone Forms: Work/School Release IP Time of Disposition: 18:07
--- NOTE | 2024-06-21 16:03 | ECG_ITS ---
Test Date: 2024-06-21 16:37:05 Measurements Intervals [place] Rate: 78 P: 40 [place]: 174 QRS: -2 QRSD: 92 T: 17 QT: 398 QTc: 455 Interpretive Statements SINUS RHYTHM POSSIBLE LEFT ATRIAL ENLARGEMENT DELAYED PRECORDIAL R/S TRANSITION MINIMAL Q WAVES- HIGH LATERAL LEADS BORDERLINE T WAVE ABNORMALITY- INFERIOR LEADS BASELINE ARTIFACT- I, II, III, AVR, AVF, V1-V2 BORDERLINE ECG No previous ECG available for comparison Electronically Signed On 06-22-2024 12:24:39 CDT by Edwin Farrell D.O.
[2024-06-21 16:11] LABS: Basophils Absolute Auto 0.1 K/mm3 (0.0-0.1); Basophils Percent Auto 0.9 % (0.2-1.2); Eosinophils Absolute Auto 0.2 K/mm3 (0-0.3); Hematocrit 41.5 % (37.0-47.0); Hemoglobin 13.9 g/dL (12.0-15.0); Immature Granulocyte Absolute 0.03 K/mm3 (0.00-0.031); Immature Granulocyte Percent A 0.4 % (0-0.5); Lymphocytes Absolute Auto 2.52 K/mm3 (0.9-3.2); Mean Corpuscular HGB Conc 33.5 g/dl (32-36); Mean Corpuscular Hemoglobin 30.9 pg (26-34); Mean Corpuscular Volume 92.2 fl (80-100); Mean Platelet Volume 10.8 fl (7.4-10.4); Monocytes Absolute Auto 0.6 K/mm3 (0.1-0.6); Monocytes Percent Auto 7.9 % (2.6-8.5); Neutrophils Absolute Auto 4.3 K/mm3 (1.3-6.7); Neutrophils Percent Auto 55.8 % (45.5-73.1); Platelet Count Result 183 k/mm3 (150-375); Red Cell Distribution Width 14.1 % (11.5-14.5); White Blood Count 7.6 K/mm3 (4.5-10.0)
[2024-06-21 16:21] LABS: Anion Gap 13 mmol/L (4-12); Blood Urea Nitrogen 9 mg/dL (7-17); Calcium 9.6 mg/dL (8.4-10.2); Carbon Dioxide 23 mmol/L (22-30); Chloride 105 mmol/L (98-107); Estimated CRCL calculation 88 ml/min; Estimated Glomerular Filt Rate > 60; Glucose 97 mg/dL (65-110); Sodium 141 mmol/L (137-145)
[2024-06-21 16:26] LABS: Estimated CRCL calculation 82 ml/min; Estimated Glomerular Filt Rate > 60
--- OUTSIDE RECORDS SUMMARY | 2024-06-21 16:31 | XMS_ITS | Referral Summary ---
Author Organization [facility] Address [address] [place] [address] Care Team Providers Care Mobile Heavy Equipment Operator Name Role Phone Gavino Han MD Unavailable [phone] Eleanor Tom NP Primary Care Provider [phone] Allergies No known active allergies Medications sertraline [...] 02/24/2024 Assessment & Plan (02/24/2024 7:44 AM FIBER OPTIC TECHNICIAN): This is a worsening problem. Will treat with doxycycline b.i.d. for 10 days. Pure hypercholesterolemia 02/24/2024 Assessment & Plan (02/24/2024 7:44 AM FIBER OPTIC TECHNICIAN): Last LDL was 167. Will recheck with labs today. Not currently on a statin. Will continue to monitor Annual physical exam 02/24/2024 Assessment & Plan (02/24/2024 7:46 AM FIBER OPTIC TECHNICIAN): -Recommended: Healthy diet. Avoiding junk food/fast food. [...] 3:40 PM CDT): Stable. Managed by Psychiatry, [facility] Thrombocytopenic disorder 06/19/2019 Assessment & Plan (08/05/2023 3:14 PM CDT): States she has seen hematology and her platelets are always low. Essential hypertension 02/20/2018 Assessment & Plan (02/24/2024 7:43 AM FIBER OPTIC TECHNICIAN): Mildly elevated today due to illness. Will [...] on file Legal Sex Female 2:43 AM FIBER OPTIC TECHNICIAN Gender Identity Not on file Sexual Orientation Not on file Last Filed Vital Signs Vital Sign Reading Time Taken Comments Blood Pressure 136/82 02/24/2024 7:35 AM FIBER OPTIC TECHNICIAN Pulse 112 02/24/2024 7:08 AM FIBER OPTIC TECHNICIAN Temperature 36.6 C (97.8 F) 02/24/2024 7:08 AM FIBER OPTIC TECHNICIAN Respiratory Rate 18 02/24/2024 7:08 AM FIBER OPTIC TECHNICIAN Oxygen Saturation 97% 02/24/2024 7:08 AM FIBER OPTIC TECHNICIAN Inhaled Oxygen Concentration - - Weight 99.8 kg (220 lb 1.6 oz) 02/24/2024 7:08 A M FIBER OPTIC TECHNICIAN Height 175.3 cm (5' 9 ) 02/24/2024 7:08 AM FIBER OPTIC TECHNICIAN Body Mass Index 32.5 02/24/2024 7:08 AM FIBER OPTIC TECHNICIAN Plan of Treatment Not on file Procedures [...] Bose MD - 12/17/2023 8:10 AM CDT [facility] Patient Name: Nae Bajwa Procedure Date: 12/17/2023 8:10 AM Date of : 1975 Admit Type: Outpatient Age: 48 Gender: Female Attending MD: Boni Bose M.D. Room: [facility] ENDOSCOPY ROOM 06 Note Status: Finalized [...] The scope was passed under direct vision.The [id number] colonoscope was introduced through theanus and advanced [...] On: 12/17/2023 8:10 AM Recognized by the [employer] for promoting quality [...] MICROBIOLOGY - GENERAL OR DERABLES Final Result [facility] [id number] [address] Department [place] [address] from Last 3 Months or Most Recently Relevant to Health Maintenance Insurance [facility] CHOICE PLUS [facility] CHO[facility] PLUS Care Teams Mobile Heavy Equipment Operator Relationship Specialty Start Date End Date Eleanor Tom NP PCP - General Family Medicine 08/05/23 Gavino Han MD Internal Medicine 08/03/21
--- OUTSIDE RECORDS SUMMARY | 2024-06-21 16:31 | XMS_ITS | Clinical Summary ---
Author Organization [address] Address [address] [place] [address] Care Team Providers Care Steam Brush Operator Name Role Phone Gavino Han MD Unavailable [phone] Eleanor Tom NP Primary Care Provider [phone] Allergies No known active allergies Medications sertraline [...] 02/24/2024 Assessment & Plan (02/24/2024 7:44 AM WAITANGI TRIBUNAL MEMBER): This is a worsening problem. Will treat with doxycycline b.i.d. for 10 days. Pure hypercholesterolemia 02/24/2024 Assessment & Plan (02/24/2024 7:44 AM WA[employer]ANGI TRI[employer] MEMBER): Last LDL was 167. Will recheck with labs today. Not currently on a statin. Will continue to monitor Annual physical exam 02/24/2024 Assessment & Plan (02/24/2024 7:46 AM WA[employer] TRI[employer] MEMBER): -Recommended: Healthy diet. Avoiding junk food/fast food. [...] 3:40 PM CDT): Stable. Managed by Psychiatry, [facility] Thrombocytopenic disorder 06/19/2019 Assessment & Plan (08/05/2023 3:14 PM CDT): States she has seen hematology and her platelets are always low. Essential hypertension 02/20/2018 Assessment & Plan (02/24/2024 7:43 AM WA[employer]ANGI TRI[employer] MEMBER): Mildly elevated today due to illness. Will [...] on file Legal Sex Female 2:43 AM [employer] TRI[employer]NAL MEMBER Gender Identity Not on file Sexual Orientation Not on file Obstetrics History Last Filed Vital Signs Vital Sign Reading Time Taken Comments Blood Pressure 136/82 02/24/2024 7:35 AM WA[employer]ANGI TRI[employer]NAL MEMBER Pulse 112 02/24/2024 7:08 AM WA[employer]ANGI TRI[employer]NAL MEMBER Temperature 36.6 C (97.8 F) 02/24/2024 7:08 AM WA[employer]I TRI[employer]NAL MEMBER Respiratory Rate 18 02/24/2024 7:08 AM WA[employer]ANGI TRI[employer]NAL MEMBER Oxygen Saturation 97% 02/24/2024 7:08 AM WA[employer]ANGI TRI[employer]NAL MEMBER Inhaled Oxygen Concentration - - Weight 99.8 kg (220 lb 1.6 oz) 02/24/2024 7:08 A M [employer]BER Height 175.3 cm (5' 9 ) 02/24/2024 7:08 AM WA[employer] TRI[employer]NAL MEMBER Body Mass Index 32.5 02/24/2024 7:08 AM WA[employer] TRI[employer] MEMBER Plan of Treatment Health Maintenance Due Date [...] Bose MD - 12/17/2023 8:10 AM CDT [facility] GI ENDOSCOPY Patient Name: Nae Bajwa Procedure Date: 12/17/2023 8:10 AM Date of : 1975 Admit Type: Outpatient Age: 48 Gender: Female Attending MD: Boni Bose M.D. Room: [facility] ENDOSCOPY ROOM 06 Note Status: Finalized [...] The scope was passed under direct vision.The [id number] colonoscope was introduced through theanus and advanced [...] On: 12/17/2023 8:10 AM Recognized by the [place] [employer] for promoting quality [...] - GENERAL OR DERABLES Final Result RENEE [id number] [facility] Department [place] [address] from Last 3 Months or Most Recently Relevant to Health Maintenance Insurance Care Teams Steam Brush Operator Relationship Specialty Start Date End Date Eleanor Tom NP PCP - General Family Medicine 08/05/23 Gavino Han MD Internal Medicine 08/03/21
--- OUTSIDE RECORDS SUMMARY | 2024-06-21 16:31 | XMS_ITS | CONTINUITY OF CARE DOCUMENT ---
Author Name baileymercedes, corinnaquiana Address Unknown Organization [facility] Address [address] [facility] [address] [place] [address] Phone [phone] Care Team Providers Care Air Quality Manager Name Role Phone Errol HURLEY, Donaldo Unavailable ELI GROCERY STOCKER, SHAUNNA Unavailable [phone] GUEVARA ISLAS MD Unavailable PROBLEMS Condition Status Date Provider Notes Palpitations active Donaldo Norton MD INSURANCE PROVIDERS Payer name Policy type / Coverage type [place] red libertarian ID [facility] [id number] HISTORY OF PROCEDURES Procedure Date Procedure Name Provider Procedure Notes S tatus WINSTON Norton MD c ompleted
--- OUTSIDE RECORDS SUMMARY | 2024-06-21 16:31 | XMS_ITS | Clinical Summary ---
Author Organization [facility] Address [address] [place] [address] Phone Care Team Providers Care Supervisor Fabrication And Assembly Name Role Phone Unavailable Primary Care Provider [...]
--- OUTSIDE RECORDS SUMMARY | 2024-06-21 16:31 | XMS_ITS | Clinical Summary ---
Author Organization [employer] Address [address] [facility] [place] [address] Care Team Providers Care Counselor Aide Name Role Phone Gavino Han MD Primary Care Provider [phone] Source Comments [employer],non-owned Affiliates and Associated Physician Practices is amultiple site organization consisting of ambulatory clinics and hospital sitesin [place], [place], [place]. This disclosure is being madepursuant to the Care Everywhere program and may not contain all information available regarding this patient. Last updated 17.[employer] [facility] [employer] Allergies No known active allergies Medications * [...] age to complete this topic Care Teams Counselor Aide Relationship Specialty Start Date End Date Gavino Han MD PCP - General Internal Medicine 10/07/15
[2024-06-21] MEDS: MECLIZINE HCL 25 MG TABLET PO (16:40)
== END 2024-06-21 18:15 | disposition home or self-care (01) ==
PROVIDERS: Emergency Provider Student in an Organized Health Care Education/Training Program; PCP Nurse Practitioner Family
DX: M54.2 Cervicalgia (principal); M43.6 Torticollis; E04.1 Nontoxic single thyroid nodule; Z90.49 Acquired absence of other specified parts of digestive tract; R94.31 Abnormal electrocardiogram [ECG] [EKG]
CPT/HCPCS: 36415; 70496; 70498; 80048; 85025; 93005; 99284; A9270; Q9967

== ENCOUNTER 2024-08-09 11:04 | Outpatient (CLI) | payer OTHER, SELFPAY ==
--- NOTE | ~2024-08-09 | US_ITS ---
EXAMINATION: US thyroid DATE: 08/09/2024 11:50 INDICATION: Thyroid nodule TECHNIQUE: Multiple ultrasound images of the thyroid were obtained. COMPARISON: CT dated 06/21/2024 FINDINGS: The right thyroid lobe measures 4.3 x 1.5 x 1.0 cm. The left thyroid lobe measures 4.5 x 1.5 x 0.6 c m. 1.0 cm wide than tall solid isoechoic nodule with ill-defined margins and without echogenic foci in the right thyroid lobe (TI-RADS 3, mildly suspicious , FNA if >=2.5 cm, annual followup is >=1.5 c m). There is a second 1.7 cm TI RADS 3 nodule with identical imaging features at the inferior left th yroid lobe. There is normal echotexture, echogenicity and vascular flow throughout the remainder of t he thyroid gland. IMPRESSION: 1. A couple bilateral TI RADS 3 thyroid nodules the larger on the left measuring 1.7 cm corresponding to the lesion of concern identified on prior CT and for which annual ultrasound follow-up would be r ecommended. Reviewed, dictated and finalized at location A. IMPRESSION: 1. A couple bilateral TI RADS 3 thyroid nodules the larger on the left measurin g 1.7 cm corresponding to the lesion of concern identified on prior CT and for which annual ultrasound follow-up would be recommended.
--- OUTSIDE RECORDS SUMMARY | 2024-08-09 11:43 | XMS_ITS | CONTINUITY OF CARE DOCUMENT ---
Author Name baileymercedes, corinnaquiana Address Unknown Organization [facility] Address [address] [facility] [address] [place] [address] Phone [phone] Care Team Providers Care Zipper Setter Name Role Phone Errol HURLEY, Donaldo Unavailable ELI HYDROPONICS GROWER, SHAUNNA Unavailable GUEVARA ISLAS MD Unavailable PROBLEMS Condition Status Date Provider Notes Palpitations active Donaldo Norton MD INSURANCE PROVIDERS Payer name Policy type / Coverage type [place] red democrat ID [facility] [id number] HISTORY OF PROCEDURES Procedure Date Procedure Name Provider Procedure Notes S tatus WINSTON Norton MD c ompleted
--- OUTSIDE RECORDS SUMMARY | 2024-08-09 11:43 | XMS_ITS | Clinical Summary ---
Author Organization [employer] Address [address] [facility] [place] [address] Care Team Providers Care Bi Manager Name Role Phone Gavino Han MD Primary Care Provider [phone] Source Comments [employer],non-owned Affiliates and Associated Physician Practices is amultiple site organization consisting of ambulatory clinics and hospital sitesin [place], [place], [place] and [place]. This disclosure is being madepursuant to the Care Everywhere program and may not contain all information available regarding this patient. Last updated 17.[facility] Allergies No known active allergies Medications * Be aware that medications may not be up to date on this document. Alwaysverify current medications with the patient. traMADol (ULTRAM) 50 MG tablet Take 1 [...] = 0.6 oz pur e alcohol) rare Comments Unknown Sex and Gender Information Value Date Recorded Sex Assigned at Not on file Legal Sex Female 2:50 PM CDT Gender Identity Not on file [...] 2023-2 5 season) 2023 03/15/2021, 04/20/2020, 03/29/2020 DEPRESSION SCREENING 03/24/2024 INFLUENZA VACCINE (Season Ended) 2024 HIB VACCINE Aged Out No longer eligi [...] on patient's age to complete this topic [place] [address] [address] [place] [address] Care Teams Bi Manager Relationship Specialty Start Date End Date Gavino Han MD PCP - General Internal Medicine 10/07/15
--- OUTSIDE RECORDS SUMMARY | 2024-08-09 11:43 | XMS_ITS | Referral Summary ---
Author Organization [facility] [address] Address [address] [place] [address] Care Team Providers Care Home And School Visitor Name Role Phone Gavino Han MD Unavailable [phone] Eleanor Tom NP Primary Care Provider [phone] Kirt Polanco NP Unavailable Encounters Date Type Department Care Team Description 07/23/2024 10:30 AM CDT Office Visit [facility] Primary Care at [address] [address] Harvinder Spence MD Thyroid nodule (Primary Dx) 06/30/2024 Orders Only LAB INTERFACE [id number] Evon Ro NP 06/30/2024 Telephone [facility] Primary Care at [address] [address] Eleanor Tom NP Medical Question/Miscellaneo us from Last 3 Months Allergies No known active allergies Medications sertraline (ZOLOFT) 100 mg tablet sertraline 100 mg tablet Active lamoTRIgine (LaMICtal) 100 mg tablet 07/18/19 22 Active gabapentin (NEURONTIN) 300 mg capsule 06/27/19 22 Active traMADoL (ULTRAM) 50 mg tablet 07/04/19 22 Active cyclobenzaprine (FLEXERIL) 5 mg tabletIndicatio ns:Acute pain of left shoulder Take 1 tablet (5 mg total) by mouth 3 (three) times a day as needed for muscle spasms 30 tablet 07/19/19 22 Active predniSONE (DELTASONE) 5 mg tablet 01/17/20 22 Active sulfaSALAzine EN (AZULFIDINE EN) 500 mg EC tablet 01/31/[address] (VOLTAREN) 75 mg EC tablet 02/06/20 23 Active Strattera 40 mg capsule 10/23/19 24 Active topiramate (TOPAMAX) 25 mg tabletIndicatio ns:Chronic migraine without aura with status migrainosus, not intractable Take 1 tablet (25 mg total) by mouth 2 (two) times a day 180 tablet 1 02/12/20 24 Active albuterol HFA (PROVENTIL HFA,VENTOLIN HFA,PROAIR HFA) 90 mcg/actuation inhaler 02/22/20 24 Active lisinopriL (PRINIVIL,ZESTR IL) 20 mg tablet Take 1 tablet (20 mg total) by mouth daily 90 tablet 1 02/24/20 24 Active metoprolol tartrate (LOPRESSOR) 25 mg immediate release tablet Take 1 tablet (25 mg total) by mouth every morning 90 tablet 1 02/24/20 24 Active amLODIPine (NORVASC) 2.5 mg tablet Take 1 tablet (2.5 mg total) by mouth daily 90 tablet 1 02/24/20 24 Active diazePAM (VALIUM) 5 mg tablet TAKE 1 TABLET BY MOUTH AT BEDTIME NEEDED FOR MUSCLE SPASM 06/22/19 25 Active meclizine (ANTIVERT) 25 mg tablet TAKE 1 TABLET BY MOUTH TWICE DAILY NEEDED FOR DIZZINESS 06/23/19 25 Active methylPREDNISol one (MEDROL DOSEPACK) 4 mg Dosepack 07/22/19 25 Active benzonatate (TESSALON) 200 mg capsuleIndicati ons:Non-recurre nt acute suppurative otitis media of left ear without spontaneous rupture of tympanic membrane Take 1 capsule (200 mg total) by mouth 3 (three) times a day as needed for cough 30 capsule 12/10/19 24 025 Discontinued Active Problems Problem Noted Date Diagnosed Date Pain of ovary 02/24/2024 Pain in right hand 02/24/2024 Premenstrual dysphoric disorder 02/24/2024 Urinary tract infectious disease 02/24/2024 Lower respiratory infection (e.g., bronchitis, pneumonia, pneumonitis, pulmonitis) 02/24/2024 Assessment & Plan (02/24/2024 7:44 AM EDUCATION AND TRAINING COORDINATOR): This is a worsening problem. Will treat with doxycycline b.i.d. for 10 days. Pure hypercholesterolemia 02/24/2024 Assessment & Plan (02/24/2024 7:44 AM EDUCATION AND TRAINING COORDINATOR): Last LDL was 167. Will recheck with labs today. Not currently on a statin. Will continue to monitor Annual physical exam 02/24/2024 Assessment & Plan (02/24/2024 7:46 AM EDUCATION AND TRAINING COORDINATOR): -Recommended: Healthy diet. Avoiding junk food/fast food. [...] 02/20/2018 Assessment & Plan (02/24/2024 7:43 AM EDUCATION AND TRAINING COORDINATOR): Mildly elevated today due to illness. Will [...] on file Legal Sex Female 2:43 AM EDUCATION AND TRAINING COORDINATOR Gender Identity Not on file Sexual Orientation Not on file Last Filed Vital Signs Vital Sign Reading Time Taken Comments Blood Pressure 124/80 07/23/2024 10:42 AM CDT Pulse 88 07/23/2024 10:42 AM CDT Temperature 36.1 C (96.9 F) 07/23/2024 10:42 AM CDT Respiratory Rate 16 07/23/2024 10:42 AM CDT Oxygen Saturation 98% 07/23/2024 10:42 AM CDT Inhaled Oxygen Concentration - - Weight 104.8 kg (231 lb) 07/23/2024 10:42 AM CDT Height 175.3 cm (5' 9 ) 07/23/2024 10:42 AM CDT Body Mass Index 34.11 07/23/2024 10:42 AM CDT Plan of Treatment Not on file Procedures Procedure Name Priority Date/Time Associated Diagnosis Comments TB TEST, QUANTIFERON GOLD Routine 06/30/2024 12:17 PM CDT CRP (ACUTE PHASE) Routine 06/30/2024 12: 17 PM CDT CBC WITH AUTO DIFFERENTIAL Routine 06/30/2024 12:17 PM CDT COMPREHENSIVE METABOLIC PANEL Routine 06/30/2024 12:17 PM CDT COPY RECEIVED FROM Routine 06/30/2024 12 :17 PM CDT HEPATITIS C RNA, QUANTITATIVE, PCR Routine 06/30/2024 12:17 PM CDT HEPATITIS B CORE ANTIBODY, TOTAL Routine 06/30/2024 12:17 PM CDT HEPATITIS B SURFACE ANTIGEN Routine 06/30/2024 12:17 PM CDT COLONOSCOPY 12/17/2023 8:10 AM CDT from Last 3 Months or Most Recently Relevant to Health Maintenance Results * Copy received from (06/30/2024 12:17 PM CDT) Copy Rec'd from: [facility] Comment: [facility] [address] [address] 06/30/2024 12:1 7 PM CDT 06/30/2024 12:19 PM CDT Narrative [facility] - 07/02/2024 5:10 PM CDT FASTING:NO FASTING: NO Evon Ro PHP [employer] DEV[employer] LAB BLOOD ORDERABLES Carla l Result [facility] * TB test, quantiferon gold (06/30/2024 12:17 PM CDT) QuantiFERON(R)-T B Gold Plus, 1 Tube NEGATIVE NEGATIVE [facility] Comment: Negative test result. M. tuberculosis complex infection unlikely. NIL 0.05 IU/mL [facility] MITOGEN-NIL 8.29 IU/mL [facility] TB1-NIL 0.01 IU/mL [facility] TB2-NIL 0.00 IU/mL [facility] Comment: The Nil tube value reflects the background interferon gamma immune response of the patient's blood sample. This value has been subtracted from the patient's displayed TB and Mitogen results. Lower than expected results with the Mitogen tube prevent false-negative Quantiferon readings by detecting a patient with a potential immune suppressive condition and/or suboptimal pre-analytical specimen handling. The TB1 Antigen tube is coated with the M. tuberculosis-specific antigens designed to elicit responses from TB antigen primed CD4+ helper T-lymphocytes. The TB2 Antigen tube is coated with the M. tuberculosis-specific antigens designed to elicit responses from TB antigen primed CD4+ helper and CD8+ cytotoxic T-lymphocytes. For additional information, please refer to https://education.CallistoTV/faq/VVM794 (This link is being provided for informational/ educational purposes only.) 06/30/2024 12:1 7 PM CDT 06/30/2024 12:[address] [facility] - 07/02/2024 5:10 PM CDT FASTING:NO FASTING: NO us Evon Ro PHP [employer] DEVELOPER LAB BLOOD ORDERABLES Carla l Result [facility] [address] [place] [address] * CBC with auto differential (06/30/2024 12:17 PM CDT) Pathologist [facility] WBC 8.6 3.8 - 10.8 Thousand/u L [facility] RBC, POC 4.36 3.80 - 5.10 Million/uL [facility] Hgb 13.5 11.7 - 15.5 g/dL [facility] Hct 40.6 35.0 - 45.0 % [facility] MCV 93.1 80.0 - 100.0 fL [facility] MCH 31.0 27.0 - 33.0 pg [facility] MCHC 33.3 32.0 - 36.0 g/dL [facility] Comment: For adults, a slight decrease in the calculated MCHC value (in the range of 30 to 32 g/dL) is most likely not clinically significant; however, it should be interpreted with caution in correlation with other red cell parameters and the patient's clinical condition. Rdw 14.2 11.0 - 15.0 % [facility] Platelets 196 140 - 400 Thousand/u L [facility] MPV 10.8 7.5 - 12.5 fL [facility] Neutrophils, abs 4,644 1,500 - 7,800 cells/uL [facility] Lymphocytes, abs 3,096 850 - 3,900 cells/uL [facility] Monocyte abs 671 200 - 950 cells/uL [facility] Eosinophils, abs 112 15 - 500 cells/uL [facility] Basophils, abs 77 0 - 200 cells/uL [facility] Neutrophils 54 % [facility] Lymphocyte pct 36.0 % [facility] Monocytes 7.8 % [facility] Eosinophils 1.3 % [facility] Basophils 0.9 % [facility] 06/30/2024 12:1 7 PM CDT 06/30/2024 12:[address] [facility] - 07/02/2024 5:10 PM CDT FASTING:NO FASTING: NO us Evon Ro PHP [employer] DEVELOPER LAB BLOOD ORDERABLES Carla l Result [facility] [address] [place] [address] * Hepatitis B core antibody, total (06/30/2024 12:17 PM CDT) Hep B core IgG/IgM NON-REACTI VE NON-REACTI VE [facility] Comment: For additional information, please refer to http://education.CallistoTV/faq/ITN185 (This link is being provided for informational/ educational purposes only.) 06/30/2024 12:1 7 PM CDT 06/30/2024 12:19 PM CDT Narrative [facility] - 07/02/2024 5:10 PM CDT FASTING:NO FASTING: NO Evon Ro NP LAB MICROBIOLOGY - GENERA L ORDERABLES Final Result Performing Organization Address [facility] Co de Phone Number [facility] [address] [place] [address] * Hepatitis C (HCV) RNA PCR, quantitative (06/30/2024 12:17 PM CDT) Pathologist [facility] HCV RNA IU/mL <15 NOT DETECTED NOT DETECTED IU/mL [facility] HCV RNA log IU/mL <1.18 NOT DETECTED NOT DETECTED Log IU/mL [facility] Comment: For additional information, please refer to http://Carista App.TrekCafe.Stunn/faq/LRO73v8 (This link is being provided for informational/ educational purposes only.) 06/30/2024 12:1 7 PM CDT 06/30/2024 12:19 PM CDT Narrative [facility] - 07/02/2024 5:10 PM CDT FASTING:NO FASTING: NO Result [facility] Evon Ro NP LAB MICROBIOLOGY - GENERA L ORDERABLES Final Result Performing Organization Address [facility] Co de Phone Number CARY [facility] [address] [place] [address] * Hepatitis B Surface Antigen (06/30/2024 12:17 PM CDT) Pathologist [facility] HepBsAg NON-REACTI VE NON-REACTI VE [facility] Comment: For additional information, please refer to http://Carista App.TrekCafe.Stunn/faq/OKK629 (This link is being provided for informational/ educational purposes only.) 06/30/2024 12:1 7 PM CDT 06/30/2024 12:19 PM CDT Narrative [facility] - 07/02/2024 5:10 PM CDT FASTING:NO FASTING: NO Evon Ro NP LAB MICROBIOLOGY - GENERA L ORDERABLES Final Result Performing Organization Address [facility]/ZIP Co de Phone Number [facility] [employer] [facility] [address] [place] [address] * CRP (acute phase) (06/30/2024 12:17 PM CDT) [facility] C-RP <3.0 <8.0 mg/L [facility] 06/30/2024 12:1 7 PM CDT 06/30/2024 12:19 PM CDT Narrative [facility] - 07/02/2024 5:10 PM CDT FASTING:NO FASTING: NO Evon Ro NP LAB BLOOD ORDERABLES Carla l Result Performing Organization Address [facility] Co de Phone Number [facility] [address] [place] [address] * Comprehensive metabolic panel (06/30/2024 12:17 PM CDT) [facility] Glucose 131 65 - 139 mg/dL [facility] Comment: Non-fasting reference interval BUN 7 7 - 25 mg/dL [facility] Creatinine 0.85 0.50 - 1.03 mg/dL [facility] eGFR 83 > OR = 60 mL/min/1.7 3m2 [facility] BUN/creat ratio SEE NOTE: 6 - 22 (calc) [facility] Comment: Not Reported: BUN and Creatinine are within reference range. Sodium 139 135 - 146 mmol/L [facility] Potassium, pl 3.5 3.5 - 5.3 mmol/L [facility] Chloride 105 98 - 110 mmol/L [facility] CO2 27 20 - 32 mmol/L [facility] Calcium 9.3 8.6 - 10.4 mg/dL [facility] Protein, sr 6.6 6.1 - 8.1 g/dL [facility] Albumin 4.6 3.6 - 5.1 g/dL [facility] GLOBULIN 2.0 1.9 - 3.7 g/dL (calc) [facility] Alb/glob ratio 2.3 1.0 - 2.5 (calc) [facility] Bilirubin, total 0.3 0.2 - 1.2 mg/dL [facility] Alk phos 58 37 - 153 U/L [facility] AST 14 10 - 35 U/L [facility] ALT (SGPT) 20 6 - 29 U/L [facility] 06/30/2024 12:1 7 PM CDT 06/30/2024 12:19 PM CDT Narrative [facility] - 07/02/2024 5:10 PM CDT FASTING:NO FASTING: NO us Evon Ro PHP [employer] DEVELOPER LAB BLOOD ORDERABLES Carla l Result [facility] [address] [place] [address] * Colonoscopy (12/17/2023 8:10 AM CDT) Anatomical Region Laterality Modality Other Narrative Procedure Note Boni Bose MD - 12/17/2023 8:[address] [facility] GI ENDOSCOPY Patient Name: Nae Bajwa Procedure Date: 12/17/2023 8:10 AM Date of : 1975 Admit Type: Outpatient Age: 48 Gender: Female Attending MD: Boni Bose M.D. Room: [facility] ENDOSCOPY ROOM 06 Note Status: Finalized Procedure: [...] The scope was passed under direct vision.The [id number]-[id number] colonoscope was introduced through theanus and advanced [...] On: 12/17/2023 8:10 AM Recognized by the [employer] [place] [employer]intestinal Endoscopy for promoting quality in endoscopy us Boni Bose MD ENDOSCOPY PROCEDURES Final Resul t from Last 3 Months or Most Recently Relevant to Health Maintenance Insurance Care Teams Home And School Visitor Relationship Specialty Start Date End Date Eleanor Tom NP PCP - General Family Medicine 08/05/23 Gavino Han MD Internal Medicine 08/03/21 iKrt Polanco NP [address] [place] [id number] Otolaryngology 07/23/24
--- OUTSIDE RECORDS SUMMARY | 2024-08-09 11:43 | XMS_ITS | Clinical Summary ---
Author Organization [facility] Address [address] [place] [address] Phone Care Team Providers Care Graves Registration Specialist Name Role Phone Unavailable Primary Care Provider [...]
--- OUTSIDE RECORDS SUMMARY | 2024-08-09 11:43 | XMS_ITS | Data Portability ---
Author Organization [place] [employer], Main Office Address [address] [place] [address] Assessment Encounter Date Assessment Date Assessment LastModified [...] efficacy of that is doing right now [email or web address] Not available 07/28/2022 11:10:56 12/05/2022 12/05/2022 Will continue with current therapy mammogram Cologuard 4 month follow-up [email or web address] Not available 12/05/2022 21:39:30 02/27/2023 02/27/2023 COVID breathing exercises and she will follow up at her regular appointment she will call in a couple weeks with an update [email or web address] Not available 02/27/2023 14:22:14 Plan of Treatment Reminders Order Date Submit Date Provider Last Modified By Organization Details Last Modified Time Details Appointments None recorded. Lab noninvasive colorectal cancer DNA + occult blood screening, QL, stool 2022 023 [employer] (Cologuard Orders Only), [address], [place], [address], 4 07:17:22 HbA1c (hemoglobin A1c), blood 2022 023 [email or web address], [address], [place], [address], 3 10:27:50 CMP, serum or plasma 2022 023 [employer] [facility], [address], [place], [address], 3 10:27:50 lipid panel, serum 2022 023 [employer] [facility], [address], [place], [address], 3 10:27:50 CBC w/ auto diff 2022 023 [employer] [facility], [address], [place], [address], 3 11:15:51 Referral None recorded. Procedures None recorded. Surgeries None recorded. Imaging MAMMO, screening, digital, bilateral 2022 023 [email or web address] [facility] ([facility] Scheduling), [address] [place] [address], [address], 4 18:27:53 Medication Orders None recorded. Patient TargetsNo targets recorded. Patient Instructions Encounter Date Encounter Id Patient Instructions Last Modified By Organization Details Last Modified Time 12/05/2022 [id number] risk assessment* [email or web address] Not availabl e 12/05/2022 12:25:31 INFLUENZA VACCIN [...] SCREENING Not indicated GLUCOSE SCREENING LIPID SCREENING [email or web address] Not available 12/05/2022 11:03:23 Reason for Referral None Reported. Results Created Date Observation Date Name Description Value Unit Range Abnormal Flag Note LastModifiedBy Organization Detail LastModifiedTime 12/05/19 24 12/05/2023 COLOG UARD cologuard result Cancel led - Order d not applic able Not Available [facility] (Cologuard Orders Only) [address], [place], [address], 12/05/2023 07:17:22 02/21/20 23 02/20/2023 CT, angio gram, chest , w/ contr ast No observ ation record ed. [facility] [address], [place], [address], 02/22/2023 08:14:51 02/23/20 24 02/22/2024 XR, chest , 2 view No observ ation record ed. [email or web address] [place] [address] [facility], [place], [address], 02/27/2024 13:42:03 Result Notes None recorded. Problems Name Problem SNOMED Code Status Onset Date Resolution Date Notes Provider Name and Address Organization Details Recorded Time Abdominal pain 40058173 Completed Not Available [facility] 3 02:53:30 Ovarian pain 400365469 Completed Not Available [facility] 3 02:53:30 Thrombocy topenic disorder 645333648 Active 2019 Not Available [facility] 3 12:11:45 Pain in right hand 07496344469 9109 Completed Not Available [facility] 3 02:53:30 Migraine 00217915 Active Not Available [facility] 3 12:11:45 Osteoarth ritis 680413042 Active 2021 Not Available [facility] 3 12:11:45 Obesity 679367938 Active 2022 Not Available [facility] 3 12:11:45 Pain in forearm 668514285 Completed Not Available [facility] 3 02:53:31 Anxiety 88243740 Active Not Available [facility] 3 12:11:45 Premenstr ual dysphoric disorder 584042 Completed Not Available [facility] 3 02:53:31 Essential hypertens ion 84969345 Active 2017 Not Available [facility] 3 12:11:45 Urinary tract infectiou s disease 56700870 Completed Not Available [facility] 3 02:53:31 Sleep apnea 84382492 Active 2021 Not Available [facility] 3 12:11:46 Palpitati ons 62549458 Active 2017 Not Available [facility] 3 12:11:46 Hyperglyc emia 45708194 Active 2022 Not Available [facility] 3 12:11:46 Ankylosin g spondylit is 9682055 Active 2022 Not Available [facility] 3 12:11:46 COVID-19 988354670 Active 2022 Gavino Han MD [address] [place] [address], [address] , [facility] [employer] [facility] 3 14:22:22 Notes:Medical History: Anxie ty/Depression Migraine headaches Rhinitis with postnasal drip Bruxism Early REM onset Obesity with mod OSAHS, AHI = 15, 10/16/21, on CPAP c/o IVRC Hypertension Insulin resistance ANUJ Ankylosing spondylitis OA Procedure History: 2 c-sections 1994. 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 Procedures Surgical History Date Name Laterality Status Provider Name and Address Organization Details Recorded Time 03/01/20 13 partial cystectomy completed Not Available [facility] 05/22/2022 02:47:42 03/01/20 13 removal of ovarian cyst completed Not Available [facility] 05/22/2022 02:47:42 04/27/19 10 Ablation completed Not Available [facility] 05/22/2022 02:47:42 02/08/20 09 hysteroscopy completed Not Available [facility] 05/22/2022 02:47:42 09/16/18 97 completed Not Available [facility] 05/22/2022 02:47:42 09/16/18 97 Tubal Ligation completed Not Available [facility] 05/22/2022 02:47:42 03/08/19 95 completed Not Available [facility] 05/22/2022 02:47:42 Cholecystectomy completed Not Available [facility] 05/22/2022 02:47:42 Imaging Results Imaging Date Name Status LastModified by Organiz ation Details LastModified Time 02/20/2023 CT, angiogram, chest, w/ contrast completed [place] [address], [place], [address], 02/22/2023 08:14:51 02/22/2024 XR, chest, 2 view completed [email or web address] [facility] [address] [facility], [place], [address], 02/27/2024 13:42:03 Procedure Notes None recorded. Medical [...] Updated DateTime 3 172.72 cm 35.9 kg/m2 950003. 8 g 97.7 [degF] 64 /min 124 mm[Hg] 80 mm[Hg] MIKY Hayward [facility] 3 13:38:00 Date Recorded Body height Body mass index (BMI) Body weight Body temperature Heart rate Systolic blood pressure Diastolic blood pressure Provider Name and Address Organization Details Last Updated DateTime 3 172.72 cm 34.8 kg/m2 701290. 65 g 97.7 [degF] 70 /min 126 mm[Hg] 88 mm[Hg] MIKY Hayward [facility] 3 10:50:33 Date Recorded Body height Body mass index (BMI) Body weight Body temperature Heart rate Systolic blood pressure Diastolic blood pressure Provider Name and Address Organization Details Last Updated DateTime 3 172.72 cm 35.3 kg/m2 712936. 43 g 98.6 [degF] 61 /min 120 mm[Hg] 74 mm[Hg] [facility] [place] [facility] 3 13:50:39 Date Recorded Body mass index (BMI) Body height Heart rate Body temperature Body weight Systolic blood pressure Diastolic blood pressure Provider Name and Address Organization Details Last Updated DateTime 3 35.4 kg/m2 172.72 cm 69 /min 97.7 [degF] 742686. 02 g 126 mm[Hg] 80 mm[Hg] Not Available [facility] 3 02:51:37 Date Recorded Body mass index (BMI) Heart rate Body height Oxygen saturation Oxygen saturation in Arterial blood by Pulse oximetry Heart rate Respiratory rate Body temperature Body weight Systolic blood pressure Diastolic blood pressure Provider Name and Address Organization Details Last Updated DateTime 3 35.3 kg/m2 61 /min 172.72 cm 97 % 97 % 61 /min 15 /min 98.9 [degF] 884774. 43 g 122 mm[Hg] 76 mm[Hg] Not Available [facility] 3 02:51:37 Social History Question Answer Notes LastModified by Organizat ion Details LastModified Time Tobacco Smoking Status Former Smoker MIKY [place]ena [place] [facility] [place] [facility] 12/05/2022 10:46:24 Do You Have An Advance Directive? No [id number] Information not available 05/22/2022 Do You Wear A Helmet When Biking? Yes Information not available 12/05/2022 What Is Your Level Of Caffeine Consumption? Moderate [id number] Information not available 05/22/2022 How Much Tobacco Do You Chew? None [id number] Information not available 05/22/2022 In The 14 Days Before Symptom Onset, Have You Had Close Contact With A Laboratory-confirm ed COVID-19 While That Case Was Ill? No Information n ot available 12/05/2022 In The 14 Days Before Symptom Onset, Have You Had Close Contact With A Person Who Is Under Investigation For COVID-19 While That Person Was Ill? No Information not available 12/05/2022 What Type Of Diet Are You Following? REGULAR [id number] Information not available 05/22/2022 Which Illicit Or Recreational Drugs Have You Used? None Information not available 12/05/2022 What Is The Highest Grade Or Level Of School You Have Completed Or The Highest Degree You Have Received? [id number] Information not available 12/05/2022 Do You Have An Electrostatic Air Filter? No Information not available 12/05/2022 Have There Been Any Changes To Your Family Or Social Situation? No Information no t available 12/05/2022 Are There Any Guns Present In Your Home? No Information not available 12/05/2022 Do You Have A Humidifier? Yes Information not available 12/05/2022 Do You Use Insect Repellent Routinely? Yes Information not available 12/05/2022 Where Do You Live? Trailer Inform ation not available 12/05/2022 Do You Have A Medical Power Of Ballistics Expert Forensic? No Information not available 12/05/2022 Do You Have Moisture Problems In Your Home? No Information not available 12/05/2022 What Was The Date Of Your Most Recent Tobacco Screening? 02/27/2023 [email or web address] Information not available 02/27/2023 Do You Have Any Pets? Yes Information not available 12/05/2022 What Is Your Relationship Status? [id number] Information not available 05/22/2022 Do You Use Your Seat Belt Or Car Seat Routinely? Yes Information not available 12/05/2022 Do You Have Smoke And Carbon Monoxide Detectors In Your Home? Yes Information not available 12/05/2022 Are You Passively Exposed To Smoke? Yes Information no t available 12/05/2022 Are There Any Smokers In Your House? Yes Information not available 12/05/2022 How Much Tobacco Do You Smoke? No [id number] Information not available 05/22/2022 Do You Use Sunscreen Routinely? Yes Information not available 12/05/2022 Have You Recently Traveled Abroad? No Information not available 12/05/2022 Do You Have Any Dietary Restrictions? No Information not available 12/05/2022 Sex: Female Functional Status Question Answer Note LastModified by Organizat ion Details LastModified Time Do you use any illicit or recreational drugs? No Information not available 12/05/2022 Do you or have you ever used any other forms of tobacco or nicotine? No Information not available 12/05/2022 What is your level of alcohol consumption? Occasional [id number] Information not available 05/22/2022 Do you or have you ever used smokeless tobacco? 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 Never used electronic cigarettes Information not available 12/05/2022 What is your exercise level? Moderate [id number] Information not available 05/22/2022 Mental Status Question Answer Note LastModified by Organization D etails LastModified Time Do you feel stressed (tense, restless, nervous, or anxious, or unable to sleep at night)? [id number] Information not available 12/05/2022 Family History Relationship Description Onset Age of this Age Resolved Age Notes LastModified by Organization Details LastModified Time Unspecified Relation Diabetes mellitus [id number] Not available 05/22/2022 02:47:46 Sister Malignant tumor of breast 36 [address]IVING cyahl Not available 2022 10:46:23 Mother Squamous cell carcinoma of mouth [email or web address] Not available 2022 10:46:23 Mother Obstructive sleep apnea syndrome [email or web address] Not available 2022 10:46:23 Son Diabetes mellitus 27 [id number] Not available 05/22/2022 02:47:47 Medical History Condition [...] ARTERY DISEASE (CAD) N ADDICTION CONCERNS N Impotence N ENDOMETRIOSIS N USE OF BLOOD THINNERS N SKIN [...] GLAUCOMA N FOOT PROBLEM N DIVERTICULITIS N SLEEP APNEA N CHICKENPOX N INFECTIOUS DISEASE N PROSTATE N HEART ARRHYTHMIA N INSOMNIA N HIGH CHOLESTEROL / HYPERLIPIDEMIA N EYE PROBLEMS N HYPERTHYROIDISM N NEUROLOGICAL PROBLEMS N EDEMA N CHRONIC PAIN SYNDROME N HYPOTHYROIDISM N CONSTIPATION N CAROTID BLOCKAGE N BACK / NECK PROBLEMS N HAVE YOU BEEN HOSPITALIZED OR SEEN IN [facility] ER IN THE PAST YEAR ? N ATHEROSCLEROSIS N BREAST PROBLEMS N DIALYSIS N ECZEMA N OSTEOPOROSIS N ARTHRITIS N APPENDICITIS N DIABETES, TYPE N BAD TEETH N ENT N HEARTBURN / REFLUX N AUTISM SPECTRUM DISORDER (ASD) N HEPATITIS / LIVER DISEASE N GOUT N SLEEP DISORDER N ALZHEIMER'S DISEASE N Brain Problems N DEMENTIA N HERPES N SEIZURES/EPILEPSY N HEADACHES/MIGRAINES Y VASCULAR DISEASE N PACEMAKER N Blood Disorder N DIZZINESS N HEART DISEASE/HEART PROBLEMS N KIDNEY DISEASE N MULTIPLE SCLEROSIS N CANCER: SPECIFY N CARDIAC ARRHYTHMIA N ATRIAL FIBRILLATION N Gall Stones N PULMONARY EMBOLISM N AUTO [id number]|2024-08-09 11:43:00|2024-08-09 11:43:00|XMS_ITS|BKG DAEMON|External Medical Summaries|[id number]|" Patient Health Record Created on: August 09, 2024 KAMERON BAJWA : 1975 Sex: Male Author Organization [facility] [employer] Address [address] [facility] [address] [place] [address] Care Team Providers Care Forming And Assembling Supervisor Name Role Phone Samantha iH Unavailable [phone] Migration, Provider Unavailable Unavailable Reason For Referral [...] lamoTRIgine 100 mg TAKE 1 TABLET BY JUANA TH DAILY for 28 Active traMADol HCl 50 MG Oral A ctive Encounters Encounter Location Date Provider Diagnosis [facility] [address] [facility] [address] [facility] [address] [place] [address] 08/10/2023 Provider Migration Plan Of Treatment No Information Insurance Providers Payer Name Payer Address Payer Phone Subscriber Number Group Number Insured Name Patient Relationship to Insured Coverage Start Date Coverage End Date [facility] [address] [place] [address] [id number] KAMERON BAJWA Self - patient is the insured "
--- OUTSIDE RECORDS SUMMARY | 2024-08-09 11:43 | XMS_ITS | Clinical Summary ---
Author Organization [facility] [address] [place] Address [address] [place] [address] Care Team Providers Care Lang Path Therapist Name Role Phone Gavino Han MD Unavailable [phone] Eleanor Tom NP Primary Care Provider [phone] Kirt Polanco NP Unavailable Allergies No known active allergies Medications sertraline [...] 02/24/2024 Assessment & Plan (02/24/2024 7:44 AM CONSULTANT TEACHER): This is a worsening problem. Will treat with doxycycline b.i.d. for 10 days. Pure hypercholesterolemia 02/24/2024 Assessment & Plan (02/24/2024 7:44 AM CONSULTANT TEACHER): Last LDL was 167. Will recheck with labs today. Not currently on a statin. Will continue to monitor Annual physical exam 02/24/2024 Assessment & Plan (02/24/2024 7:46 AM CONSULTANT TEACHER): -Recommended: Healthy diet. Avoiding junk food/fast food. [...] 3:40 PM CDT): Stable. Managed by Psychiatry, [facility] Thrombocytopenic disorder 06/19/2019 Assessment & Plan (08/05/2023 3:14 PM CDT): States she has seen hematology and her platelets are always low. Essential hypertension 02/20/2018 Assessment & Plan (02/24/2024 7:43 AM CONSULTANT TEACHER): Mildly elevated today due to illness. Will [...] pain 05/30/2021 08/05/19 24 Cough 05/01/2021 08/05/2023 Encounters Date Type Department Care Team Description 07/23/2024 10:30 AM CDT Office Visit [facility] Medical [facility] Care at [address] [address] Harvinder Spence MD Thyroid nodule (Primary Dx) 06/30/2024 Orders Only [facility] INTERFACE [id number] Evon Ro NP 06/30/2024 Telephone [facility] Primary Care at [address] [address] Tom, Eleanor A., COLOR ADVISER Medical Question/Miscellaneo us from Last 3 Months Immunizations Immunization Administration Dates Next Due Influenza, Unspecified 12/29/2023,2023(Deferred: Patient Refused),03/24/2022(Deferred: Patient Refused),10/18/2016 Surgical History Surgery Date Site/Laterality Comments SECTION CHOLECYSTECTOMY ABLATION TUBAL LIGATION COLONOSCOPY Medical History Medical History Date Comments Hypertension Ankylosing spondylitis (HCC) ADHD (attention deficit hyperactivity disorder) Sleep apnea Depression Anxiety Autoimmune disease Migraines Family History Medical History Relation Name Comments [...] on file Legal Sex Female 2:43 AM CONSULTANT TEACHER Gender Identity Not on file Sexual Orientation [...] 07/23/2024 10:42 AM CDT Plan of Treatment Health Maintenance Due Date Last Done Comments Breast Cancer Screening-Mammogram 1975 Cervical Cancer Screening 1975 DTaP/Tdap/Td Vaccine (1 - Tdap) 02/08/1984 Hepatitis B Screening 1991 Zoster Vaccine (1 of 2) 2023 Covid-19 Vaccine ( season) 2023 03/15/2021, 02/13/2021, 04/20/2020, Additional history exists Depression Screening 02/23/2025 02/24/2024, 08/05/19 24 Regular Well Visit/Exam 18-64 02/23/2025 02/24/2024 Colon Cancer Screening-Colonoscopy 12/16/2026 12/17/2023 Influenza Vaccine Completed 12/29/2023, 10/18/2016 Hepatitis C Screening Completed 06/30/2024, 024 Pneumococcal vaccine <65 Aged Out No longer [...] Copy Rec'd from: [facility] Comment: [facility] [address] [place] [address] 06/30/2024 12:1 7 PM CDT 06/30/2024 12:19 PM CDT Narrative [facility] - 07/02/2024 5:10 PM CDT FASTING:NO FASTING: NO us Evon Ro COLOR ADVISER LAB BLOOD ORDERABLES Carla l Result [facility] [...] T-lymphocytes. For additional information, please refer to https://education.[employer].ARTtwo50/faq/NWE685 (This link is being provided for informational/ educational purposes only.) 06/30/2024 12:1 7 PM CDT 06/30/2024 12:19 PM CDT [facility] - 07/02/2024 5:10 PM CDT FASTING:NO FASTING: NO us Evon Ro COLOR ADVISER LAB BLOOD ORDERABLES Carla l Result [facility] [address] [address] * CBC with auto differential (06/30/2024 12:17 PM CDT) [facility] WBC 8.6 3.8 - 10.8 Thousand/u L [...] ORDERABLES Carla l Result Performing Organization Address [facility] de Phone Number [facility] [address] [place] [address] * Hepatitis B core antibody, total (06/30/2024 12:17 PM CDT) Pathologist [facility] Hep B core IgG/IgM NON-REACTI VE NON-REACTI VE [facility] Comment: For additional information, please refer to http://SimplyGiving.com.[employer]/faq/YUU005 (This link is being provided for informational/ educational purposes only.) 06/30/2024 12:1 7 PM CDT 06/30/2024 12:19 PM CDT Narrative [facility] - 07/02/2024 5:10 PM CDT FASTING:NO FASTING: NO Evon Ro NP LAB MICROBIOLOGY - GENERA L ORDERABLES Final Result Performing Organization Address [facility] de Phone Number [facility] [address] [place] [address] * Hepatitis C (HCV) RNA PCR, quantitative (06/30/2024 12:17 PM CDT) Pathologist [facility] HCV RNA IU/mL <15 NOT DETECTED NOT DETECTED IU/mL [facility] HCV RNA log IU/mL <1.18 NOT DETECTED NOT DETECTED Log IU/mL [facility] Comment: For additional information, please refer to http://Sermo/faq/YTT10u3 (This link is being provided for informational/ educational purposes only.) 06/30/2024 12:1 7 PM CDT 06/30/2024 12:19 PM CDT Narrative [facility] - 07/02/2024 5:10 PM CDT FASTING:NO FASTING: NO Evon Ro NP LAB MICROBIOLOGY - GENERA L ORDERABLES Final Result Performing Organization Address [facility] Co de Phone Number [facility] [address] [place] [address] * Hepatitis B Surface Antigen (06/30/2024 12:17 PM CDT) HepBsAg NON-REACTI VE NON-REACTI VE [facility] Comment: For additional information, please refer to http://education.[employer]/faq/QLA035 (This link is being provided for informational/ educational purposes only.) 06/30/2024 12:1 7 PM CDT 06/30/2024 12:19 PM CDT Narrative [facility] - 07/02/2024 5:10 PM CDT FASTING:NO FASTING: NO Evon Ro NP LAB MICROBIOLOGY - GENERA L ORDERABLES Final Result Performing Organization Address [facility] de Phone Number [facility] [address] [place] [address] * CRP (acute phase) (06/30/2024 12:17 PM CDT) C-RP <3.0 <8.0 mg/L [facility] 06/30/2024 12:1 7 PM CDT 06/30/2024 12:19 PM CDT Narrative [facility] - 07/02/2024 5:10 PM CDT FASTING:NO FASTING: NO Evon Ro COLOR ADVISER LAB BLOOD ORDERABLES Carla l Result Performing Organization Address [facility] Co de Phone Number [facility] [address] [place] [address] * Comprehensive metabolic panel (06/30/2024 12:17 PM CDT) Glucose 131 65 - 139 mg/dL [facility] [...] CDT FASTING:NO FASTING: NO us Evon Ro COLOR ADVISER LAB BLOOD ORDERABLES Carla l Result [facility] [address] [address] [address] * Colonoscopy (12/17/2023 8:10 AM CDT) Anatomical Region Laterality Modality Other Narrative Procedure Note Boni Bose MD - 12/17/2023 8:10 AM CDT [facility] Patient Name: Nae Bajwa Procedure Date: 12/17/2023 8:10 AM Date of : 1975 Admit Type: Outpatient Age: 48 Gender: Female Attending MD: Boni Bose M.D. Room: [facility] ROOM 06 Note Status: Finalized Procedure: [...] The scope was passed under direct vision.The [id number]-[id number] colonoscope was introduced through theanus and advanced [...] On: 12/17/2023 8:10 AM Recognized by the [employer] for promoting quality in endoscopy Boni Bose MD ENDOSCOPY PROCEDURES Final Resul t from Last 3 Months or Most Recently Relevant to Health Maintenance Insurance [facility] CHOICE PLUS [facility] CHO[facility] PLUS Care Teams Lang Path Therapist Relationship Specialty Start Date End Date Eleanor Tom NP PCP - General Family Medicine 08/05/23 Gavino Han MD Internal Medicine 08/03/21 Kirt Polanco NP [address] [place] [address] Otolaryngology 07/23/24
== END 2024-08-09 11:05 | disposition home or self-care (01) ==
PROVIDERS: PCP Nurse Practitioner Family; Visit Provider Family Medicine
DX: E04.2 Nontoxic multinodular goiter (principal)
CPT/HCPCS: 76536

== ENCOUNTER 2024-08-19 11:31 | Emergency (ER) | payer OTHER, SELFPAY ==
[2024-08-19] VITALS (8 sets, daily range): BP systolic 134–163; BP diastolic 79–99; PULSE 69–85; RESP 10–26; TEMP 36.6; O2SAT 97–100
--- NOTE | ~2024-08-19 | XR_ITS ---
CHEST RADIOGRAPH, PA AND LATERAL CLINICAL HISTORY: chest pain FRONTAL WALL HEAVINESS W/BACK PAIN . COMPARISON: 02/22/2024 TECHNIQUE: PA and lateral views of the chest. FINDINGS The cardiomediastinal silhouette is unremarkable. The lungs are clear. IMPRESSION: No focal infiltrate or effusion. Reviewed, dictated and finalized at location A.
--- NOTE | ~2024-08-19 | CT_ITS ---
EXAMINATION: CTA chest abdomen pelvis DATE: 08/19/2024 13:26 CDT INDICATION: Chest pain radiating to back. TECHNIQUE: Computed tomographic angiography (CTA) of the chest was performed, along with multiple con tiguous axial images of the abdomen and pelvis with 100 mL Omnipaque-350 intravenous contrast. The do se-length product was 1588.61 mGy-cm. Maximum intensity projection 3D-reconstructions of the aorta an d other arteries were constructed by the technologist on a separate workstation. FINDINGS/OBSERVATIONS: PULMONARY ARTERIES: No filling defect is identified within the main or proximal pulmonary artery. The main pulmonary artery is not enlarged. THORACIC AORTA: No aneurysmal dilatation or dissection is present. The great vessels are intact LUNGS: The lungs are clear. MEDIASTINUM: No morphologically suspicious or pathologically enlarged lymph nodes are identified with in the mediastinum or bilateral axilla. BONES OF THE CHEST: No acute fracture. No significant degenerative disease. No lytic or blastic lesions. HEART: The heart is of normal size, without pericardial effusion. LIVER: The liver enhances homogeneously and is enlarged measuring 21 cm in longitudinal dimension. GALLBLADDER AND BILIARY SYSTEM: The gallbladder is surgically absent. PANCREAS: The pancreas enhances homogeneously without ductal dilatation. SPLEEN: The spleen enhances homogeneously and is not enlarged. KIDNEYS: The bilateral kidneys enhance symmetrically without hydronephrosis or renal calculi. ADRENAL GLANDS: Unremarkable. GASTROINTESTINAL TRACT: Colonic diverticulosis without surrounding inflammatory change. APPENDIX: The air-filled appendix is of normal caliber (axial series, images 190-209). VASCULATURE: Unremarkable. No aneurysmal dilatation or significant stenosis. LYMPH NODES: No pathologically enlarged or morphologically suspicious lymph nodes within the retroperitoneum or at the root of the mesentery. PELVIC STRUCTURES: The bladder is only minimally distended, and otherwise unremarkable. Involuting cyst within the right ovary. The uterus is anteverted and anteflexed. Trace free fluid within the pelvis, likely physiologic. BODY WALL AND MUSCULOSKELETAL: Small fat-containing umbilical hernia. No significant degenerative disease within the lower thoracic or lumbosacral spine. IMPRESSION: No pulmonary embolus. No aortic dissection. The lungs are clear. Involuting cyst within the right ovary. Hepatomegaly. Remainder of examination is unremarkable. Reviewed, dictated and finalized at location A.
--- NOTE | 2024-08-19 11:32 | ECG_ITS ---
Test Date: 2024-08-19 11:38:10 Measurements Intervals [place] Rate: 82 P: 49 MI: 157 QRS: 14 QRSD: 96 T: 30 QT: 376 QTc: 441 Interpretive Statements SINUS RHYTHM WITH OCCASIONAL SUPRAVENTRICULAR PREMATURE COMPLEXES POSSIBLE LEFT ATRIAL ENLARGEMENT [-0.1mV P-WAVE IN V1/V2] Compared to ECG 06/21/2024 16:37:05 No significant changes Electronically Signed On 08-20-2024 11:03:08 CDT by Jeannine Harris M.D.
--- OUTSIDE RECORDS SUMMARY | 2024-08-19 11:33 | XMS_ITS | Data Portability ---
Author Organization [place] [facility] [place] [employer], Main Office Address [address] [place] [address] Assessment Encounter Date Assessment Date Assessment LastModified [...] efficacy of that is doing right now [email or web address] Not available 07/28/2022 11:10:56 12/05/2022 12/05/2022 Will continue with current therapy mammogram Cologuard 4 month follow-up [email or web address] Not available 12/05/2022 21:39:30 02/27/2023 02/27/2023 COVID breathing exercises and she will follow up at her regular appointment she will call in a couple weeks with an update [email or web address] Not available 02/27/2023 14:22:14 Plan of Treatment Reminders Order Date Submit Date Provider Last Modified By Organization Details Last Modified Time Details Appointments None recorded. Lab noninvasive colorectal cancer DNA + occult blood screening, QL, stool 2022 023 [facility] (Cologuard Orders Only), [address], [address], [place], [address], 4 07:17:22 HbA1c (hemoglobin A1c), blood 2022 023 cyahl [facility], [address], [place], [address], 3 10:27:50 CMP, serum or plasma 2022 023 [facility], [address], [place], [address], 3 10:27:50 lipid panel, serum 2022 023 [facility], [address], [place], [address], 3 10:27:50 CBC w/ auto diff 2022 023 [email or web address] [facility], [address], [place], [address], 3 11:15:51 Referral None recorded. Procedures None recorded. Surgeries None recorded. Imaging MAMMO, screening, digital, bilateral 2022 023 [email or web address] [facility] ([facility] Sched[facility]), [address] [place] [address], [address], 4 18:27:53 Medication Orders None recorded. Patient TargetsNo targets recorded. Patient Instructions Encounter Date Encounter Id Patient Instructions Last Modified By Organization Details Last Modified Time 12/05/2022 [id number] risk assessment* [email or web address] Not availabl e 12/05/2022 12:25:31 INFLUENZA VACCIN E Recommended today, but patient declined Ordered Patient will get at local pharmacy/health department Renitajohana t has egg allergy Next vaccination to be given fall of Next vaccination to be given fall of ___ TD/TDAP Patient will get at local pharmacy/health department PNEUMONIA VACCINE Ordered Recommend ed today, patient declined Patient will get at local pharmacy/health department Recomm ended at age 63 Next vaccination to be given Up to date SHINGLES Ordered Recommend ed today, patient declined Patient will get at local pharmacy/health department Not indicated Up to date MAMMOGRAM: Last Mammogram __ Recommended today, but patient declined Ordered No screening indicated at this time/ no family history No screening necessary patient is up to date Recommended today DEXA SCAN No screening indicated CERVICAL SCREENING/PELVIC EXAMINATION No screening necessary patient is up to date COLORECTAL SCREENING: Last Colonoscopy Recommended today, but patient declined Ordered Colonoscopy declined. Cologuard ordered No screening necessary until age 45 No screening necessary patient is up to date Recommended today DEPRESSION SCREENING Continue current medication BMI Overweight try to lose 10% of your body weight NUTRITION Heart Healthy Diet Recommendati on of a 1500 caloric intake for weight loss is advised Diabetic Diet Renal Diet DASH Diet Continue healthy eating & exercise Eat Heart Healthy Diet PHYSICAL ACTIVITY Need more exercise/physical activity VISION Ordered Recommend ed today Recommended today, but you have declined No Eye exam necessary Your next exam in: goes yearly ALCOHOL USE No alcohol use TOBACCO USE non smoker LUNG CANCER SCREENING Non Smoker-not indicated SEXUALLY ACTIVE HEPATITIS C SCREENING Not indicated GLUCOSE SCREENING Ordered Not needed Known Diabetic up to date LIPID SCREENING Ordered Not needed Diagnosis of Hyperlipidemia up to date [email or web address] Not available 12/05/2022 11:03:23 Reason for Referral None Reported. Results Created Date Observation Date Name Description Value Unit Range Abnormal Flag Note LastModifiedBy Organization Detail LastModifiedTime 12/05/19 24 12/05/2023 COLOG UARD cologuard result Cancel led - Order d not applic able Not Available [facility] (Cologuard Orders Only) [address], [place], [address], 12/05/2023 07:17:22 02/21/20 23 02/20/2023 CT, angio gram, chest , w/ contr ast No observ ation record ed. [facility] [address], [place], [address], 02/22/2023 08:14:51 02/23/20 24 02/22/2024 XR, chest , 2 view No observ ation record ed. [email or web address] [facility] [address] [facility] , [place], [address], 02/27/2024 13:42:03 Result Notes None recorded. Problems Name Problem SNOMED Code Status Onset Date Resolution Date Notes Provider Name and Address Organization Details Recorded Time Abdominal pain 75719354 Completed Not Available [facility] 3 02:53:30 Ovarian pain 663922919 Completed Not Available [facility] 3 02:53:30 Thrombocy topenic disorder 155167363 Active 2019 Not Available [facility] 3 12:11:45 Pain in right hand 33974219471 9109 Completed Not Available [facility] 3 02:53:30 Migraine 84690611 Active Not Available [facility] 3 12:11:45 Osteoarth ritis 244158908 Active 2021 Not Available [facility] 3 12:11:45 Obesity 860070884 Active 2022 Not Available [facility] 3 12:11:45 Pain in forearm 327812503 Completed Not Available [facility] 3 02:53:31 Anxiety 03425623 Active Not Available [facility] 3 12:11:45 Premenstr ual dysphoric disorder 959330 Completed Not Available [facility] 3 02:53:31 Essential hypertens ion 97281052 Active 2017 Not Available [facility] 3 12:11:45 Urinary tract infectiou s disease 22316611 Completed Not Available [facility] 3 02:53:31 Sleep apnea 00571071 Active 2021 Not Available [facility] 3 12:11:46 Palpitati ons 26902836 Active 2017 Not Available [facility] 3 12:11:46 Hyperglyc emia 91160111 Active 2022 Not Available [facility] 3 12:11:46 Ankylosin g spondylit is 1929819 Active 2022 Not Available [facility] 3 12:11:46 COVID-19 311193336 Active 2022 Gavino Han MD [address] [place] [address], [place] [address], [place], [address] , [facility] [employer] [facility] 3 14:22:22 Notes:Medical History: Anxie ty/Depression Migraine headaches Rhinitis with postnasal drip Bruxism Early REM onset Obesity with mod OSAHS, AHI = 15, 10/16/21, on CPAP c/o IVRC Hypertension Insulin resistance ANUJ Ankylosing spondylitis OA Procedure History: 2 c-sections 1994. 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 Procedures Surgical History Date Name Laterality Status Provider Name and Address Organization Details Recorded Time 03/01/20 13 partial cystectomy completed Not Available [facility] 05/22/2022 02:47:42 03/01/20 13 removal of ovarian cyst completed Not Available [facility] 05/22/2022 02:47:42 04/27/19 10 Ablation completed Not Available [facility] 05/22/2022 02:47:42 02/08/20 09 hysteroscopy completed Not Available [facility] 05/22/2022 02:47:42 09/16/18 97 completed Not Available [facility] 05/22/2022 02:47:42 09/16/18 97 Tubal Ligation completed Not Available [facility] 05/22/2022 02:47:42 03/08/19 95 completed Not Available [facility] 05/22/2022 02:47:42 Cholecystectomy completed Not Available [facility] 05/22/2022 02:47:42 Imaging Results None recorded. Procedure Notes None recorded. Medical Equipment None [...] 500 mg tablet Take by oral route. 02/05/ 2015 active otc Not Available Not Available Not [...] Available Not Available Vitals Date Recorded Body mass index (BMI) Body height Heart rate Body temperature Body weight Systolic blood pressure Diastolic blood pressure Provider Name and Address Organization Details Last Updated DateTime 3 35.4 kg/m2 172.72 cm 69 /min 97.7 [degF] 447944. 02 g 126 mm[Hg] 80 mm[Hg] Not Available [facility] 3 02:51:37 Date Recorded Body mass index (BMI) Heart rate Body height Oxygen saturation Oxygen saturation in Arterial blood by Pulse oximetry Heart rate Respiratory rate Body temperature Body weight Systolic blood pressure Diastolic blood pressure Provider Name and Address Organization Details Last Updated DateTime 3 35.3 kg/m2 61 /min 172.72 cm 97 % 97 % 61 /min 15 /min 98.9 [degF] 726389. 43 g 122 mm[Hg] 76 mm[Hg] Not Available [facility] 3 02:51:37 Date Recorded Body height Body mass index (BMI) Body weight Body temperature Heart rate Systolic blood pressure Diastolic blood pressure Provider Name and Address Organization Details Last Updated DateTime 3 172.72 cm 35.9 kg/m2 341862. 8 g 97.7 [degF] 64 /min 124 mm[Hg] 80 mm[Hg] MIKY [facility]ward [facility] [place] [employer] [facility] 3 13:38:00 Date Recorded Body height Body mass index (BMI) Body weight Body temperature Heart rate Systolic blood pressure Diastolic blood pressure Provider Name and Address Organization Details Last Updated DateTime 3 172.72 cm 34.8 kg/m2 679158. 65 g 97.7 [degF] 70 /min 126 mm[Hg] 88 mm[Hg] MIKY Hayward [facility] [employer] [facility] 3 10:50:33 Date Recorded Body height Body mass index (BMI) Body weight Body temperature Heart rate Systolic blood pressure Diastolic blood pressure Provider Name and Address Organization Details Last Updated DateTime 3 172.72 cm 35.3 kg/m2 189646. 43 g 98.6 [degF] 61 /min 120 mm[Hg] 74 mm[Hg] MIKY Hayward [facility] [employer] [facility] 3 13:50:39 Social History Question Answer Notes LastModified by Acust[employer] ion Details LastModified Time Tobacco Smoking Status Former Smoker MIKY Mena [facility] [employer] [facility] 12/05/2022 10:46:24 Do You Have An Advance Directive? No [id number] Information not available 05/22/2022 Do You Wear A Helmet When Biking? Yes Information not available 12/05/2022 What Is Your Level Of Caffeine Consumption? Moderate [id number] Information not available 05/22/2022 How Much Tobacco Do You Chew? None [id number] Information not available 05/22/2022 In The 14 [...] Type Of Diet Are You Following? REGULAR [id number] Information not available 05/22/2022 Which Illicit Or Recreational Drugs Have You Used? None Information not available 12/05/2022 What Is The Highest Grade Or Level Of School You Have Completed Or The Highest Degree You Have Received? [id number] Information not available 12/05/2022 Do You Have [...] Do You Have A Medical Power Of Burr Machine Operator? No Information not available 12/05/2022 Do You Have Moisture Problems In Your Home? No Information not available 12/05/2022 What Was The Date Of Your Most Recent Tobacco Screening? 02/27/2023 [email or web address] Information not available 02/27/2023 Do You Have Any Pets? Yes Information not available 12/05/2022 What Is Your Relationship Status? [id number] Information not available 05/22/2022 Do You Use [...] How Much Tobacco Do You Smoke? No [id number] Information not available 05/22/2022 Do You Use [...] is your level of alcohol consumption? Occasional [id number] Information not available 05/22/2022 Do you or have you ever used smokeless tobacco? 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 Never used electronic cigarettes Information not available 12/05/2022 What is your exercise level? Moderate [id number] Information not available 05/22/2022 Mental Status Question Answer Note LastModified by Organization D etails LastModified Time Do you feel stressed (tense, restless, nervous, or anxious, or unable to sleep at night)? [id number] Information not available 12/05/2022 Family History Relationship Description Onset Age of this Age Resolved Age Notes LastModified by Organization Details LastModified Time Unspecified Relation Diabetes mellitus [id number] Not available 05/22/2022 02:47:46 Sister Malignant tumor of breast 36 [address]IV[facility] cyahl Not available 2022 10:46:23 Mother Squamous cell carcinoma of mouth cyahl Not available 2022 10:46:23 Mother Obstructive sleep apnea syndrome cyahl Not available 2022 10:46:23 Son Diabetes mellitus 27 [id number] Not available 05/22/2022 02:47:47 Medical History Condition Response BLINDNESS N NERVE DISEASE N RHEUMATIC FEVER N BLADDER PROBLEMS N KIDNEY STONES N MRSA N OTHER # 1 Y POLIO N LUNG DISEASE/DISORDER N HISTORY OF DRUG ABUSE N RADIATION / CHEMOTHERAPY N COPD N Other # 2 Y BLOOD DISEASES N SURGERY N EAR OR HEARING PROBLEMS N MUMPS N SHINGLES N DEPRESSION (INCLUDING POST ) Y BOWEL PROBLEMS N STROKE/TIA N ULCERS N BENIGN PROSTATIC HYPERPLASIA [...] HAVE YOU BEEN HOSPITALIZED OR SEEN IN [facility] IN THE PAST YEAR ? N ATHEROSCLEROSIS N BREAST PROBLEMS N DIALYSIS N ECZEMA N OSTEOPOROSIS N ARTHRITIS N APPENDICITIS N DIABETES, TYPE N BAD TEETH N ENT N HEARTBURN / REFLUX N AUTISM SPECTRUM DISORDER (ASD) N HEPATITIS / LIVER DISEASE N GOUT N SLEEP DISORDER N ALZHEIMER'S DISEASE N Brain Problems N HERPES N DEMENTIA N SEIZURES/EPILEPSY N HEADACHES/MIGRAINES Y VASCULAR DISEASE N PACEMAKER N Blood Disorder N DIZZINESS N KIDNEY DISEASE N HEART DISEASE/HEART PROBLEMS N MULTIPLE SCLEROSIS N CARDIAC ARRHYTHMIA N CANCER: SPECIFY N Gall Stones N ATRIAL FIBRILLATION N PULMONARY EMBOLISM N AUTOIMMUNE DISEASE N [...] 50 mcg/0.25mL dose 03/15/2021 completed Not Available [facility] 3 07:05:40 COVID-19, mRNA, LNP-S, PF, 100 mcg/0.5mL dose or 50 mcg/0.25mL dose 04/20/2020 completed Not Available [facility] 3 07:05:40 COVID-19, mRNA, LNP-S, PF, 100 mcg/0.5mL dose or 50 mcg/0.25mL dose 03/29/2020 completed Not Available [facility] 3 07:05:40 Past Encounters Encounter ID Performer Location Encounter Start Date Encounter Closed Date Diagnosis/Indication Diagnosis SNOMED-CT Code Diagnosis ICD10 Code Diagnosis Note [id number] Gavino Han MD [facility] Internal Med [place] [address] [place] [address] y , [place] [address] 06/20/2020 00:00:00 06/24/2020 11:27:16 [id number] Gavino Han MD [facility] Internal Med [facility] [address] [facility], [address] [address] 01/23/2021 00:00:00 01/24/2021 21:50:15 [id number] Gavino Han MD [facility] Internal Med [place] [address] [place] [address] y , [place] [address] 01/30/2021 00:00:00 04/13/2021 21:01:12 [id number] Gavino Han MD [facility] Internal Med [place] [address] [place] [address] y , [place] [address] 05/01/2021 00:00:00 05/26/2021 17:23:11 [id number] Gavino Han MD [facility] Internal Med [facility] [address] [facility], [address] [address] 08/06/2021 00:00:00 09/08/2021 15:19:55 [id number] Gavino Han MD [facility] Internal Med [place] [address] [place] [address] y , [place] [address] 09/04/2021 00:00:00 10/05/2021 21:14:41 [id number] Gavino Han MD [facility] Internal Med [place] [address] [place] [address] y , [place] [address] 11/22/2021 00:00:00 12/08/2021 15:00:00 [id number] Gavino Han MD [facility] Internal Med [facility] [address] [place] [address] 11/28/2021 00:00:00 12/30/2021 21:23:03 [id number] Gavino Han MD [facility] Internal Med [place] [address] [place] [address] y , [place] [address] 12/20/2021 00:00:00 12/23/2021 21:57:53 [id number] Gavino Han MD [facility] Internal Med [place] [address] [place] [address] [place] [address] 01/31/2022 00:00:00 01/31/2022 21:47:42 [id number] Gavino Han MD [facility] Internal Med [place] [address] [place] [address] y , [place] [address] 04/09/2022 00:00:00 04/09/2022 10:51:09 [id number] Sly Khoury MD [facility] [address] [address] 04/24/2022 00:00:00 04/24/2022 10:13:15 [id number] Gavino Han MD [facility] Internal Med [address] [address] 07/26/2022 12:55:15 07/26/2022 13:55:13 Essential hypertension 65428789 I10 Hyperglycemia 73671535 R 73.9 Ankylosing spondylitis 0204649 M45.0 [id number] Gavino Han MD [facility] Internal Med [place] [address] [place] [address] , [place] [address] 12/05/2022 10:44:57 12/05/2022 11:47:27 Adult health examination 312044323 Z00.00 Depression screening 171 489575 Z13.31 Normal bod y mass index 33885354 Z68.34 Screening mammography 24 096874 Z12.31 Screening for malignant neoplasm of colon 311026312 Z12.11 Essential hypertension 78673953 I10 Migraine 65066694 G43.90 9 Ankylosing spondylitis 6075220 M45.0 [id number] Gavino Han MD [facility] Internal Med [place] [address] [facility] , [place] [address] 02/27/2023 13:41:48 02/27/2023 14:16:18 COVID-19 457852608 U07.1 Health Concerns Section Related Observation LastModified by Organization Detai ls LastModified Time None Recorded Concern Status LastModified by Organization Details LastModified Time None Recorded Advance Directives Directive N: Payers Encounter Date Sequence Insurance Name Policy Number Policy Raines Covered Member ID Raines Member ID Guarantor Name 07/26/[address] [facility] [id number] Nae Bajwa [id number] Nae Bajwa 12/05/[address] [facility] [id number] Nae Bajwa [id number] Nae Bajwa 02/27/[address] [facility] [id number] Nae Bajwa [id number] Nae Bajwa Notes Date Note Type Note Provider Name and Address Organization Details Recorded Time 3 text/html Hypertension seems to be doing fine no headache or dizzinessHyperglycemia needs E1nNmprygd stableAnkylosing spondylitis taking infusion Gavino Han MD [address], [place], [address], [employer] [facility] [employer] 07/28/2022 11:11:14 3 text/html ankylosing spondylitis seems to be stable migraines are doing okay hypertension no headache no dizziness wellness completed Gavino Han MD [address], [place], [address], [facility] 12/05/2022 21:39:46 3 text/html COVID she still has some problems breathing CT angiogram in the emergency room was negative not coughing anything up Gavino Han MD [address], [place], [address], [employer] 02/27/2023 14:22:39 OBGyn Episode No OBEpisode recorded.
--- OUTSIDE RECORDS SUMMARY | 2024-08-19 11:33 | XMS_ITS | Clinical Summary ---
Author Organization [facility] Address [address] [place] [address] Phone Care Team Providers Care Multifocal Button Inspector Name Role Phone Unavailable Primary Care Provider [...]
--- OUTSIDE RECORDS SUMMARY | 2024-08-19 11:33 | XMS_ITS | Encounter Summary ---
Author Organization [facility] Healthcare Address [address] [place] [address] Care Team Providers Care Vibrator Operator Name Role Phone Gavino Han MD Unavailable [phone] Eleanor Tom NP Primary Care Provider [phone] Kirt Polanco NP Unavailable Encounter Details Date Type Department Care Team (Late Contact Info) Description 08/18/2024 Telephone [facility] Medical Group Primary Care at [address] [address] Eleanor Tom NP [address] [place] [address] [address] [place] [address] Social History Tobacco Use Types Packs/Day Years Used Date Smoking Tobacco: Former AUDIT-C Answer Date Recorded Q1: How often [...] on file 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 Gender Identity Not on file Sexual Orientation Not on file documented as of this encounter Ordered Prescriptions Prescription Sig Dispense Quantity Refills Last Filled Start Date End Date metoprolol tartrate (LOPRESSOR) 25 mg immediate release tablet Take 1 tablet (25 mg total) by mouth every morning 90 tablet 1 08/18/2024 lisinopriL (PRINIVIL,ZESTRIL) 20 mg tablet Take 1 tablet (20 mg total) by mouth daily 90 tablet 1 08/18/2024 amLODIPine (NORVASC) 2.5 mg tablet Take 1 tablet (2.5 mg total) by mouth daily 90 tablet 1 08/18/2024 topiramate (TOPAMAX) 25 mg tabletIndications: Chronic migraine without aura with status migrainosus, not intractable Take 1 tablet (25 mg total) by mouth 2 (two) times a day 180 tablet 1 08/18/2024 documented in this encounter Miscellaneous Notes * Addendum Note - Marleen Robb MA - 08/18/2024 4:49 PM CDTAddended by: MARLEEN ROBB on: 08/18/2024 04:49 PM Modules accepted: Orders * Telephone Encounter - Marleen Robb MA - 08/18/2024 10:44 AM CDT Requested Prescriptions Pending Prescriptions Disp Refills topiramate (TOPAMAX) 25 mg tablet 180 tablet 1 Sig: Take 1 tablet (25 mg total) by mouth 2 (two) times a day documented in this encounter Plan of Treatment Not on file documented as of this encounter Visit Diagnoses Diagnosis Chronic migraine without aura with status migrainosus, not intractable documented in this encounter Discontinued Medications Medication Sig Discontinue Reason Start Date End Da te topiramate (TOPAMAX) 25 mg tabletIndications:Chroni c migraine without aura with status migrainosus, not intractable Take 1 tablet (25 mg total) by mouth 2 (two) times a day Reorder 02/12/2024 08/18/2024 lisinopriL (PRINIVIL,ZESTRIL) 20 mg tablet Take 1 tablet (20 mg total) by mouth daily Reorder 02/24/2024 08/18/2024 metoprolol tartrate (LOPRESSOR) 25 mg immediate release tablet Take 1 tablet (25 mg total) by mouth every morning Reorder 02/24/2024 08/18/2024 amLODIPine (NORVASC) 2.5 mg tablet Take 1 tablet (2.5 mg total) by mouth daily Reorder 02/24/2024 08/18/2024 documented as of this encounter Care Teams Vibrator Operator Relationship Specialty Start Date End Date Eleanor Tom NP PCP - General Family Medicine 08/05/23 Gavino Han MD Internal Medicine 08/03/21 Kirt Polanco NP [address] [place] [address] Otolaryngology 07/23/24 documented as of this encounter
--- OUTSIDE RECORDS SUMMARY | 2024-08-19 11:33 | XMS_ITS | Referral Summary ---
Author Organization [facility] [address] Address [address] [place] [address] Care Team Providers Care Marriage Therapist Name Role Phone Gavino Han MD Unavailable [phone] Eleanor Tom NP Primary Care Provider [phone] Kirt Polanco NP Unavailable Encounters Date Type Department Care Team Description 08/18/2024 Telephone [facility] Medical [facility] Primary Care at [address] [address] Eleanor Tmo NP 08/10/2024 Telephone [facility] Primary Care at [address] [address] Jody Thompson MA 07/23/2024 10:30 AM CDT Office Visit [facility] Primary Care at [address] [address] Harvinder Spence MD Thyroid nodule (Primary Dx) 06/30/2024 Orders Only [facility] LAB INTERFACE [address] Evon Ro NP 06/30/2024 Telephone [facility] Primary Care at [address] [address] Eleanor Tom NP Medical Question/Miscellaneo us from Last 3 Months Allergies No known active allergies Medications sertraline (ZOLOFT) 100 mg tablet sertraline 100 mg tablet Active lamoTRIgine (LaMICtal) 100 mg tablet 07/18/19 22 Active gabapentin (NEURONTIN) 300 mg capsule 06/27/19 22 Active traMADoL (ULTRAM) 50 mg tablet 07/04/19 22 Active cyclobenzaprin e (FLEXERIL) 5 mg tabletIndicati ons:Acute pain of left shoulder Take 1 tablet (5 mg total) by mouth 3 (three) times a day as needed for muscle spasms 30 tablet 07/19/19 22 Active predniSONE (DELTASONE) 5 mg tablet 01/17/20 22 Active sulfaSALAzine EN (AZULFIDINE EN) 500 mg EC tablet 01/31/[address] (VOLTAREN) 75 mg EC tablet 02/06/20 23 Active Strattera 40 mg capsule 10/23/19 24 Active albuterol HFA (PROVENTIL HFA,VENTOLIN HFA,PROAIR HFA) 90 mcg/actuation inhaler 02/22/20 24 Active diazePAM (VALIUM) 5 mg tablet TAKE 1 TABLET BY MOUTH AT BEDTIME NEEDED FOR MUSCLE SPASM 06/22/19 25 Active meclizine (ANTIVERT) 25 mg tablet TAKE 1 TABLET BY MOUTH TWICE DAILY NEEDED FOR DIZZINESS 06/23/19 25 Active methylPREDNISo lone (MEDROL DOSEPACK) 4 mg Dosepack 07/22/19 25 Active topiramate (TOPAMAX) 25 mg tabletIndicati ons:Chronic migraine without aura with status migrainosus, not intractable Take 1 tablet (25 mg total) by mouth 2 (two) times a day 180 tablet 1 08/19/19 25 Active amLODIPine (NORVASC) 2.5 mg tablet Take 1 tablet (2.5 mg total) by mouth daily 90 tablet 1 08/19/19 25 Active lisinopriL (PRINIVIL,ZEST RIL) 20 mg tablet Take 1 tablet (20 mg total) by mouth daily 90 tablet 1 08/19/19 25 Active metoprolol tartrate (LOPRESSOR) 25 mg immediate release tablet Take 1 tablet (25 mg total) by mouth every morning 90 tablet 1 08/19/19 25 Active benzonatate (TESSALON) 200 mg capsuleIndicat ions:Non-recur rent acute suppurative otitis media of left ear without spontaneous rupture of tympanic membrane Take 1 capsule (200 mg total) by mouth 3 (three) times a day as needed for cough 30 capsule 12/10/19 24 025 Discontinued topiramate (TOPAMAX) 25 mg tabletIndicati ons:Chronic migraine without aura with status migrainosus, not intractable Take 1 tablet (25 mg total) by mouth 2 (two) times a day 180 tablet 1 02/12/20 24 025 Discontinued(Re order) lisinopriL (PRINIVIL,ZEST RIL) 20 mg tablet Take 1 tablet (20 mg total) by mouth daily 90 tablet 1 02/24/20 24 025 Discontinued(Re order) metoprolol tartrate (LOPRESSOR) 25 mg immediate release tablet Take 1 tablet (25 mg total) by mouth every morning 90 tablet 1 02/24/20 025 Discontinued(Re order) amLODIPine (NORVASC) 2.5 mg tablet Take 1 tablet (2.5 mg total) by mouth daily 90 tablet 1 02/24/20 025 Discontinued(Re order) Active Problems Problem Noted Date Diagnosed Date Pain of ovary 02/24/2024 Pain in right hand 02/24/2024 Premenstrual dysphoric disorder 02/24/2024 Urinary tract infectious disease 02/24/2024 Lower respiratory infection (e.g., bronchitis, pneumonia, pneumonitis, pulmonitis) 02/24/2024 Assessment & Plan (02/24/2024 7:44 AM ASSEMBLER CRIMPER): This is a worsening problem. Will treat with doxycycline b.i.d. for 10 days. Pure hypercholesterolemia 02/24/2024 Assessment & Plan (02/24/2024 7:44 AM ASSEMBLER CRIMPER): Last LDL was 167. Will recheck with labs today. Not currently on a statin. Will continue to monitor Annual physical exam 02/24/2024 Assessment & Plan (02/24/2024 7:46 AM ASSEMBLER CRIMPER): -Recommended: Healthy diet. Avoiding junk food/fast food. [...] Rheumatology, Dr. Hoffman Obstructive sleep apnea issa mack with continuous positive airway pressure (CPAP) 10/03/2021 [...] Assessment & Plan (08/05/2023 3:40 PM CDT): Citlaly. Managed by Psychiatry, [facility] Thrombocytopenic disorder 06/19/2019 Assessment & Plan (08/05/2023 3:14 PM CDT): States she has seen hematology and her platelets are always low. Essential hypertension 02/20/2018 Assessment & Plan (02/24/2024 7:43 AM ASSEMBLER CRIMPER): Mildly elevated today due to illness. Will [...] on file Legal Sex Female 2:43 AM ASSEMBLER CRIMPER Gender Identity Not on file Sexual Orientation [...] 10:42 AM CDT Height 175.3 cm (5' 9) 07/23/2024 10:42 AM CDT Body Mass Index [...] CENTER [address] [place] [address] 06/30/2024 12:1 7 PM CDT 06/30/2024 12:19 PM CDT Narrative [facility] - 07/02/2024 5:10 PM CDT FASTING:NO FASTING: NO Evon Ro NP LAB BLOOD ORDERABLES Carla arias Result [facility] * TB test, quantiferon gold [...] T-lymphocytes. For additional information, please refer to https://education.O[employer] International/faq/JOW573 (This link is being provided for informational/ educational purposes only.) 06/30/2024 12:1 7 PM CDT 06/30/2024 12:19 PM CDT Narrative [facility] - 07/02/2024 5:10 PM CDT FASTING:NO FASTING: NO us Evon Ro OLIVER FILTER OPERATOR LAB BLOOD ORDERABLES Carla hugo Result [facility] [address] [place] [address] * CBC with auto differential (06/30/2024 12:17 PM CDT) WBC 8.6 3.8 - 10.8 Thousand/u L [...] PM CDT FASTING:NO FASTING: NO Evon Ro OLIVER FILTER OPERATOR LAB BLOOD ORDERABLES Carla l Result Performing Organization Address [facility] de Phone Number [facility] [address] [place] [address] * Hepatitis B core antibody, total (06/30/2024 12:17 PM CDT) Pathologist [facility] Hep B core IgG/IgM NON-REACTI VE NON-REACTI VE [facility] Comment: For additional information, please refer to http://Intergeneraciones [employer]icios.Medical Solutions/faq/CCH867 (This link is being provided for informational/ educational purposes only.) 06/30/2024 12:1 7 PM CDT 06/30/2024 12:19 PM CDT Narrative [facility] - 07/02/2024 5:10 PM CDT FASTING:NO FASTING: NO Evon Ro NP LAB MICROBIOLOGY - GENERA L ORDERABLES Final Result Performing Organization Address [facility] de Phone Number [facility] [address] [place] [address] * Hepatitis C (HCV) RNA PCR, quantitative (06/30/2024 12:17 PM CDT) Pathologist [facility] HCV RNA IU/mL <15 NOT DETECTED NOT DETECTED IU/mL [facility] HCV RNA log IU/mL <1.18 NOT DETECTED NOT DETECTED Log IU/mL [facility] Comment: For additional information, please refer to http://Inter[employer].Medical Solutions/faq/ICX69x3 (This link is being provided for informational/ educational purposes only.) 06/30/2024 12:1 7 PM CDT 06/30/2024 12:19 PM CDT Narrative [facility] - 07/02/2024 5:10 PM CDT FASTING:NO FASTING: NO Evon Ro OLIVER FILTER OPERATOR LAB MICROBIOLOGY - GENERA L ORDERABLES Final Result Performing Organization Address [facility] de Phone Number [facility] [address] [place] [address] * Hepatitis B Surface Antigen (06/30/2024 12:17 PM CDT) HepBsAg NON-REACTI VE NON-REACTI VE [facility] Comment: For additional information, please refer to http://education.Medical Solutions/faq/RXT670 (This link is being provided for informational/ educational purposes only.) 06/30/2024 12:1 7 PM CDT 06/30/2024 12:19 PM CDT Narrative [facility] - 07/02/2024 5:10 PM CDT FASTING:NO FASTING: NO Evon Ro NP LAB MICROBIOLOGY - GENERA L ORDERABLES Final Result Performing Organization Address [facility] de Phone Number [facility] [address] [place] [address] * CRP (acute phase) (06/30/2024 12:17 PM CDT) C-RP <3.0 <8.0 mg/L [facility] 06/30/2024 12:1 7 PM CDT 06/30/2024 12:19 PM CDT Narrative [facility] - 07/02/2024 5:10 PM CDT FASTING:NO FASTING: NO Evon Ro NP LAB BLOOD ORDERABLES Carla l Result Performing Organization Address [facility] de Phone Number [facility] [address] [address] [address] * Comprehensive metabolic panel (06/30/2024 12:17 PM [...] PM CDT FASTING:NO FASTING: NO Evon Ro OLIVER FILTER OPERATOR LAB BLOOD ORDERABLES Carla arias Result [facility] [address] [address] [address] * Colonoscopy (12/17/2023 8:10 AM CDT) Anatomical Region Laterality Modality Other Narrative Procedure Note Boni Bose MD - 12/17/2023 8:10 AM CDT [facility] GI ENDOSCOPY Patient Name: Nae Bajwa Procedure Date: 12/17/2023 8:10 AM Date of : 1975 Admit Type: Outpatient Age: 48 Gender: Female Attending MD: Boni Bose M.D. Room: [facility] ENDOSCOPY ROOM 06 Note Status: Finalized Procedure: [...] The scope was passed under direct vision.The [id number]-[id number] colonoscope was introduced through theanus and advanced [...] On: 12/17/2023 8:10 AM Recognized by the [place] for promoting quality in endoscopy Boni Bose MD ENDOSCOPY PROCEDURES Final Resul t from Last 3 Months or Most Recently Relevant to Health Maintenance Insurance [facility] HMO/PPO Address: [facility] [id number] [place] [id number] [facility] CHOICE PLUS [facility] HMO/PPO Address: [facility] [address] [place] [address] Care Teams Marriage Therapist Relationship Specialty Start Date End Date Eleanor Tom NP PCP - General Family Medicine 08/05/23 Gavino Han MD Internal Medicine 08/03/21 Kirt Polanco NP [address] [place] [address] Otolaryngology 07/23/24
--- OUTSIDE RECORDS SUMMARY | 2024-08-19 11:33 | XMS_ITS | Patient Health Record ---
Author Organization [facility] [facility] Address [address] [place] [address] Care Team Providers Care Access Control Officer Name Role Phone Samantha Hi Unavailable [phone] Reason For Referral No Information Medications Medication [...] traMADol HCl 50 MG Oral A ctive Plan Of Treatment No Information Insurance Providers Payer Name Payer Address Payer Phone Subscriber Number Group Number Insured Name Patient Relationship to Insured Coverage Start Date Coverage End Date [facility] [address] [place] [address] [phone] [id number] KAMERON LANIER Self - patient is the insured
--- OUTSIDE RECORDS SUMMARY | 2024-08-19 11:33 | XMS_ITS | Clinical Summary ---
Author Organization [employer] Address [address] [facility] [place] [address] Care Team Providers Care Belt Loop Machine Operator Name Role Phone Gavino Han MD Primary Care Provider [phone] Source Comments [facility],non-owned Affiliates and Associated Physician Practices is amultiple site organization consisting of ambulatory clinics and hospital sitesin [place], [place], [place] and [place]. This disclosure is being madepursuant to the Care Everywhere program and may not contain all information available regarding this patient. Last updated 17.[facility] Allergies No known active allergies Medications * [...] 2:53 PM CDT Height 172.7 cm (5' 8) 10/07/2015 2:53 PM CDT Body Mass Index [...] patient's age to complete this topic [place] [address] [place] [address] Care Teams Belt Loop Machine Operator Relationship Specialty Start Date End Date Gavino Han MD PCP - General Internal Medicine 10/07/15
--- OUTSIDE RECORDS SUMMARY | 2024-08-19 11:33 | XMS_ITS | Clinical Summary ---
Author Organization [facility] [address] Address [address] [place] [address] Care Team Providers Care Roof Bolter Helper Name Role Phone Gavino Han MD Unavailable [phone] Eleanor Tom NP Primary Care Provider [phone] Kirt Polanco NP Unavailable Allergies No known [...] every morning 90 tablet 1 02/24/20 24 025 Discontinued(Re order) amLODIPine (NORVASC) 2.5 mg tablet Take 1 tablet (2.5 mg total) by mouth daily 90 tablet 1 02/24/20 24 025 Discontinued(Re order) Active Problems Problem Noted Date Diagnosed Date Pain of ovary 02/24/2024 Pain in right hand 02/24/2024 Premenstrual dysphoric disorder 02/24/2024 Urinary tract infectious disease 02/24/2024 Lower respiratory infection (e.g., bronchitis, pneumonia, pneumonitis, pulmonitis) 02/24/2024 Assessment & Plan (02/24/2024 7:44 AM MOLDING SUPERVISOR): This is a worsening problem. Will treat with doxycycline b.i.d. for 10 days. Pure hypercholesterolemia 02/24/2024 Assessment & Plan (02/24/2024 7:44 AM MOLDING SUPERVISOR): Last LDL was 167. Will recheck with labs today. Not currently on a statin. Will continue to monitor Annual physical exam 02/24/2024 Assessment & Plan (02/24/2024 7:46 AM MOLDING SUPERVISOR): -Recommended: Healthy diet. Avoiding junk food/fast food. [...] 3:40 PM CDT): Stable. Managed by Psychiatry, [facility] Thrombocytopenic disorder 06/19/2019 Assessment & Plan (08/05/2023 3:14 PM CDT): States she has seen hematology and her platelets are always low. Essential hypertension 02/20/2018 Assessment & Plan (02/24/2024 7:43 AM MOLDING SUPERVISOR): Mildly elevated today due to illness. Will [...] 06/03/2021 08/05/2023 Multiple joint pain 05/30/2021 08/05/19 Cough 05/01/2021 08/05/2023 Encounters Date Type Department Care Team Description 08/18/2024 Telephone [facility] Primary Care at [address] [address] Eleanor Tom NP 08/10/2024 Telephone [facility] Primary Care at [address] [address] Jody Thompson MA 07/23/2024 10:30 AM CDT Office Visit [facility] Primary Care at [address] [address] Harvinder Spence MD Thyroid nodule (Primary Dx) 06/30/2024 Orders Only [facility] LAB INTERFACE [address] Evon Ro NP 06/30/2024 Telephone [facility] Primary Care at [address] [address] Eleanor Tom NP Medical Question/Miscellaneo [...] on file Legal Sex Female 2:43 AM MOLDING SUPERVISOR Gender Identity Not on file Sexual Orientation [...] Rec'd from: [facility] Comment: [facility] [address] [address] 06/30/2024 12:1 7 PM CDT 06/30/2024 12:19 PM CDT Narrative [facility] - 07/02/2024 5:10 PM CDT FASTING:NO FASTING: NO us Evon Ro NP LAB BLOOD ORDERABLES Carla l Result [facility] [...] T-lymphocytes. For additional information, please refer to https://education.Propable/faq/DSB618 (This link is being provided for informational/ educational purposes only.) 06/30/2024 12:1 7 PM CDT 06/30/2024 12:[address] [facility] - 07/02/2024 5:10 PM CDT FASTING:NO FASTING: NO Evon oR DIRECTOR SUPPLY CHAIN LAB BLOOD ORDERABLES Carla l Result [facility] [address] [address] [facility] [place] [address] * CBC with auto differential (06/30/2024 12:17 PM CDT) [facility] WBC 8.6 3.8 - 10.8 Thousand/u [...] CDT FASTING:NO FASTING: NO us Evon Ro DIRECTOR SUPPLY CHAIN LAB BLOOD ORDERABLES Carla l Result [facility] [address] [address] [place] [address] * Hepatitis B core antibody, total (06/30/2024 12:17 PM CDT) Hep B core IgG/IgM NON-REACTI VE NON-REACTI VE [facility] Comment: For additional information, please refer to http://VisionGate.Propable/faq/QAI114 (This link is being provided for informational/ educational purposes only.) 06/30/2024 12:1 7 PM CDT 06/30/2024 12:19 PM CDT Narrative [facility] - 07/02/2024 5:10 PM CDT FASTING:NO FASTING: NO Evon Ro NP LAB MICROBIOLOGY - [employer] L ORDERABLES Final Result Performing Organization Address [facility] de Phone Number [facility] [address] [address] [place] [address] * Hepatitis C (HCV) RNA PCR, quantitative (06/30/2024 12:17 PM CDT) Pathologist [facility] HCV RNA IU/mL <15 NOT DETECTED NOT DETECTED IU/mL [facility] HCV RNA log IU/mL <1.18 NOT DETECTED NOT DETECTED Log IU/mL [facility] Comment: For additional information, please refer to http://Flaconi/faq/RDO02d1 (This link is being provided for informational/ educational purposes only.) 06/30/2024 12:1 7 PM CDT 06/30/2024 12:19 PM CDT Narrative [facility] - 07/02/2024 5:10 PM CDT FASTING:NO FASTING: NO Evon Ro NP LAB MICROBIOLOGY - [employer] L ORDERABLES Final Result Performing Organization Address [facility] Co de Phone Number [facility] [address] [place] [address] * Hepatitis B Surface Antigen (06/30/2024 12:17 PM CDT) Pathologist [facility] HepBsAg NON-REACTI VE NON-REACTI VE [facility] Comment: For additional information, please refer to http://VisionGate.Propable/faq/WOA439 (This link is being provided for informational/ educational purposes only.) 06/30/2024 12:1 7 PM CDT 06/30/2024 12:19 PM CDT Narrative [facility] - 07/02/2024 5:10 PM CDT FASTING:NO FASTING: NO Evon Ro DIRECTOR SUPPLY CHAIN LAB MICROBIOLOGY - GENERA L ORDERABLES Final Result Performing Organization Address [facility]/ZIP Co de Phone Number [facility] [address] [place] [address] * CRP (acute phase) (06/30/2024 12:17 PM CDT) C-RP <3.0 <8.0 mg/L [facility] 06/30/2024 12:1 7 PM CDT 06/30/2024 12:19 PM CDT Narrative [facility] - 07/02/2024 5:10 PM CDT FASTING:NO FASTING: NO Evon Ro NP LAB BLOOD ORDERABLES Carla l Result Performing Organization Address [facility] Co de Phone Number [facility] [address] [place] [address] * Comprehensive metabolic panel (06/30/2024 12:17 PM [...] CDT FASTING:NO FASTING: NO us Evon Ro DIRECTOR SUPPLY CHAIN LAB BLOOD ORDERABLES Carla l Result [facility] [address] [facility] [place] [address] * Colonoscopy (12/17/2023 8:10 AM CDT) Anatomical Region Laterality Modality Other Narrative Procedure Note Boni Bose MD - 12/17/2023 8:10 AM CDT [facility] GI ENDOSCOPY Patient Name: Nae Bajwa Procedure Date: 12/17/2023 8:10 AM Date of : 1975 Admit Type: Outpatient Age: 48 Gender: Female Attending MD: Boni Bose M.D. Room: [facility] ENDOSCOPY ROOM 06 Note Status: Finalized [...] The scope was passed under direct vision.The [id number] colonoscope was introduced through theanus and advanced [...] On: 12/17/2023 8:10 AM Recognized by the [place] [employer] Gastrointestinal Endoscopy for promoting quality in endoscopy Boni Bose MD ENDOSCOPY PROCEDURES Final Resul t from Last 3 Months or Most Recently Relevant to Health Maintenance Insurance Care Teams Roof Bolter Helper Relationship Specialty Start Date End Date Eleanor Tom NP PCP - General Family Medicine 08/05/23 Gavino Han MD Internal Medicine 08/03/21 Kirt Polanco NP [address] [place] [address] Otolaryngology 07/23/24
[2024-08-19] MEDS: ASPIRIN 81 MG CHEWABLE TABLET 324 MG PO (11:44)
[2024-08-19 11:54] LABS: Alanine Aminotransferase 21 U/L (6-35); Albumin Level 4.8 g/dL (3.5-5.1); Alkaline Phosphatase 74 U/L (38-126); Anion Gap 12 mmol/L (4-12); Aspartate Amino Transferase 26 U/L (14-36); Bilirubin,Total 0.4 mg/dL (0.2-1.3); Blood Urea Nitrogen 10 mg/dL (7-17); Calcium 9.6 mg/dL (8.4-10.2); Carbon Dioxide 24 mmol/L (22-30); Chloride 105 mmol/L (98-107); Estimated CRCL calculation 91 ml/min; Estimated Glomerular Filt Rate > 60; Glucose 99 mg/dL (65-110); Lipase 97 U/L (23-300); Potassium 3.4 mmol/L (3.4-5.0); Sodium 141 mmol/L (137-145)
[2024-08-19 11:55] LABS: INR 0.9; Prothrombin Time 12.5 Seconds (11.1-14.7)
[2024-08-19 11:56] LABS: Partial Thromboplastin Time 25.4 Seconds (22.3-36.8)
[2024-08-19 12:01] LABS: Basophils Absolute Auto 0.1 K/mm3 (0.0-0.1); Basophils Percent Auto 0.6 % (0.2-1.2); Eosinophils Absolute Auto 0.1 K/mm3 (0-0.3); Eosinophils Percent Auto 1.1 % (0-4.4); Hematocrit 42.9 % (37.0-47.0); Hemoglobin 13.8 g/dL (12.0-15.0); Immature Granulocyte Absolute 0.03 K/mm3 (0.00-0.031); Immature Granulocyte Percent A 0.4 % (0-0.5); Lymphocytes Percent Auto 35.7 % (18.3-44.2); Mean Corpuscular HGB Conc 32.2 g/dl (32-36); Mean Corpuscular Hemoglobin 30.1 pg (26-34); Mean Corpuscular Volume 93.7 fl (80-100); Mean Platelet Volume 11.1 fl (7.4-10.4); Monocytes Absolute Auto 0.8 K/mm3 (0.1-0.6); Neutrophils Absolute Auto 4.5 K/mm3 (1.3-6.7); Neutrophils Percent Auto 53.2 % (45.5-73.1); Platelet Count Result 168 k/mm3 (150-375); Red Blood Count 4.58 M/mm3 (4.2-5.4); White Blood Count 8.4 K/mm3 (4.5-10.0)
[2024-08-19 12:06] LABS: Troponin I < 0.012 ng/mL (0.000-0.034)
--- OUTSIDE RECORDS SUMMARY | 2024-08-19 12:42 | XMS_ITS | Referral Summary ---
Author Organization [facility] [address] Address [address] [place] [address] Care Team Providers Care Roofing Contractor Name Role Phone Gavino Han MD Unavailable [phone] Eleanor Tom NP Primary Care Provider [phone] Kirt Polanco NP Unavailable Encounters Date Type Department Care Team Description 08/18/2024 Telephone [facility] Primary Care at [address] [address] Eleanor Tom NP 08/10/2024 Telephone [facility] Primary Care at [address] [address] Jody Thompson MA 07/23/2024 10:30 AM CDT Office Visit [facility] Primary Care at [address] [address] Harvinder Spence MD Thyroid nodule (Primary Dx) 06/30/2024 Orders Only BW LAB INTERFACE [id number] Evon Ro NP 06/30/2024 Telephone [facility] Primary Care at [address] [address] Eleanor Tom NP Medical Question/Miscellaneo [...] 02/24/2024 Assessment & Plan (02/24/2024 7:44 AM DUMP MOTOR OPERATOR): This is a worsening problem. Will treat with doxycycline b.i.d. for 10 days. Pure hypercholesterolemia 02/24/2024 Assessment & Plan (02/24/2024 7:44 AM DUMP MOTOR OPERATOR): Last LDL was 167. Will recheck with labs today. Not currently on a statin. Will continue to monitor Annual physical exam 02/24/2024 Assessment & Plan (02/24/2024 7:46 AM DUMP MOTOR OPERATOR): -Recommended: Healthy diet. Avoiding junk food/fast food. [...] 3:40 PM CDT): Citlaly. Managed by Psychiatry, [facility] Thrombocytopenic disorder 06/19/2019 Assessment & Plan (08/05/2023 3:14 PM CDT): States she has seen hematology and her platelets are always low. Essential hypertension 02/20/2018 Assessment & Plan (02/24/2024 7:43 AM DUMP MOTOR OPERATOR): Mildly elevated today due to illness. Will [...] on file Legal Sex Female 2:43 AM DUMP MOTOR OPERATOR Gender Identity Not on file Sexual Orientation [...] CENTER [address] [place] [address] 06/30/2024 12:1 7 PM CDT 06/30/2024 12:19 [...] T-lymphocytes. For additional information, please refer to https://education.Fillm.Genoom/faq/NLZ698 (This link is being provided for informational/ educational purposes only.) 06/30/2024 12:1 7 PM CDT 06/30/2024 12:19 PM CDT Narrative [facility] - 07/02/2024 5:10 PM CDT FASTING:NO FASTING: NO us Evon Ro SENIOR MECHANICAL ENGINEER LAB BLOOD ORDERABLES Carla hugo Result [facility] [address] [place] [address] * CBC with auto differential (06/30/2024 12:17 [...] PM CDT FASTING:NO FASTING: NO Evon Ro SENIOR MECHANICAL ENGINEER LAB BLOOD ORDERABLES Carla l Result Performing Organization Address [facility] de Phone Number [facility] [address] [place] [address] * Hepatitis B core antibody, total (06/30/2024 12:17 PM CDT) Pathologist [facility] Hep B core IgG/IgM NON-REACTI VE NON-REACTI VE [facility] Comment: For additional information, please refer to http://Jiahe.[facility]faq/EGL429 (This link is being provided for informational/ educational purposes only.) 06/30/2024 12:1 7 PM CDT 06/30/2024 12:19 PM CDT Narrative [facility] - 07/02/2024 5:10 PM CDT FASTING:NO FASTING: NO Evon Ro NP LAB MICROBIOLOGY - GENERA L ORDERABLES Final Result Performing Organization Address [facility] de Phone Number [facility] [address] [place] [address] * Hepatitis C (HCV) RNA PCR, quantitative (06/30/2024 12:17 PM CDT) Pathologist [facility] HCV RNA IU/mL <15 NOT DETECTED NOT DETECTED IU/mL [facility] HCV RNA log IU/mL <1.18 NOT DETECTED NOT DETECTED Log IU/mL [facility] Comment: For additional information, please refer to http://Jiahe.[facility]faq/KNG79y0 (This link is being provided for informational/ educational purposes only.) 06/30/2024 12:1 7 PM CDT 06/30/2024 12:19 PM CDT Narrative [facility] - 07/02/2024 5:10 PM CDT FASTING:NO FASTING: NO Evon Ro SENIOR MECHANICAL ENGINEER LAB MICROBIOLOGY - GENERA L ORDERABLES Final Result Performing Organization Address [facility] de Phone Number [facility] [address] [place] [address] * Hepatitis B Surface Antigen (06/30/2024 12:17 PM CDT) HepBsAg NON-REACTI VE NON-REACTI VE [facility] Comment: For additional information, please refer to http://education.[facility]faq/SCO408 (This link is being provided for informational/ educational purposes only.) 06/30/2024 12:1 7 PM CDT 06/30/2024 12:19 PM CDT Narrative [facility] - 07/02/2024 5:10 PM CDT FASTING:NO FASTING: NO Evon Ro NP LAB MICROBIOLOGY - GENERA L ORDERABLES Final Result Performing Organization Address [facility] de Phone Number [facility] [address] [place] [address] * CRP (acute phase) (06/30/2024 12:17 PM CDT) C-RP <3.0 <8.0 mg/L [facility] 06/30/2024 12:1 7 PM CDT 06/30/2024 12:19 PM CDT Narrative [facility] - 07/02/2024 5:10 PM CDT FASTING:NO FASTING: NO Evon Ro NP LAB BLOOD ORDERABLES Carla l Result Performing Organization Address [facility] de Phone Number [facility] [address] [address] * Comprehensive metabolic panel (06/30/2024 12:17 PM [...] PM CDT FASTING:NO FASTING: NO Evon Ro SENIOR MECHANICAL ENGINEER LAB BLOOD ORDERABLES Carla arias Result [facility] [address] [place] [address] * Colonoscopy (12/17/2023 8:10 AM CDT) Anatomical Region Laterality Modality Other Narrative Procedure Note Boni Bose MD - 12/17/2023 8:10 AM CDT [facility] GI ENDOSCOPY Patient Name: Nae Bajwa Procedure Date: 12/17/2023 8:10 AM Date of : 1975 Admit Type: Outpatient Age: 48 Gender: Female Attending MD: Boni Bose M.D. Room: [facility] END[facility] 06 Note Status: Finalized [...] The scope was passed under direct vision.The [id number]-[id number] colonoscope was introduced through theanus and advanced [...] On: 12/17/2023 8:10 AM Recognized by the [place] for promoting quality in endoscopy Boni Bose MD ENDOSCOPY PROCEDURES Final Resul t from Last 3 Months or Most Recently Relevant to Health Maintenance Insurance [facility] H[facility] Address: [facility] [id number] [place] [id number] [facility] H[facility]/PPO Address: [facility] [address] [place] [address] Care Teams Roofing Contractor Relationship Specialty Start Date End Date Eleanor Tom NP PCP - General Family Medicine 08/05/23 Gavino Han MD Internal Medicine 08/03/21 Kirt Polanco NP [address] [place] [address] Otolaryngology 07/23/24
--- OUTSIDE RECORDS SUMMARY | 2024-08-19 12:42 | XMS_ITS | Clinical Summary ---
Author Organization [facility] [address] Address [address] [place] [address] Care Team Providers Care Customs Guard Name Role Phone Gavino Han MD Unavailable [phone] Eleanor Tom NP Primary Care Provider [phone] Kirt Polanco NP Unavailable Allergies No known [...] 02/24/2024 Assessment & Plan (02/24/2024 7:44 AM STORY WRITER): This is a worsening problem. Will treat with doxycycline b.i.d. for 10 days. Pure hypercholesterolemia 02/24/2024 Assessment & Plan (02/24/2024 7:44 AM STORY WRITER): Last LDL was 167. Will recheck with labs today. Not currently on a statin. Will continue to monitor Annual physical exam 02/24/2024 Assessment & Plan (02/24/2024 7:46 AM STORY WRITER): -Recommended: Healthy diet. Avoiding junk food/fast food. [...] 3:40 PM CDT): Stable. Managed by Psychiatry, [facility] Thrombocytopenic disorder 06/19/2019 Assessment & Plan (08/05/2023 3:14 PM CDT): States she has seen hematology and her platelets are always low. Essential hypertension 02/20/2018 Assessment & Plan (02/24/2024 7:43 AM STORY WRITER): Mildly elevated today due to illness. Will [...] Type Department Care Team Description 08/18/2024 Telephone [facility] Primary Care at [address] [address] Eleanor Tom NP 08/10/2024 Telephone [facility] Primary Care at [address] [address] Jody Thompson MA 07/23/2024 10:30 AM CDT Office Visit [facility] Primary Care at [address] [address] Harvinder Spence MD Thyroid nodule (Primary Dx) 06/30/2024 Orders Only [facility] LAB INTERFACE [id number] Evon Ro NP 06/30/2024 Telephone [facility] Primary Care at [address] [address] Eleanor Tom NP Medical Question/Miscellaneo [...] on file Legal Sex Female 2:43 AM STORY WRITER Gender Identity Not on file Sexual Orientation [...] Rec'd from: [facility] Comment: [facility] [address] [address] 06/30/2024 12:1 7 PM CDT 06/30/2024 12:19 [...] T-lymphocytes. For additional information, please refer to https://education.Ocean Seed/faq/ZAQ801 (This link is being provided for informational/ educational purposes only.) 06/30/2024 12:1 7 PM CDT 06/30/2024 12:19 PM CDT [facility] - 07/02/2024 5:10 PM CDT FASTING:NO FASTING: NO Evon Ro REGISTERED NURSE SURGICAL SERVICES LAB BLOOD ORDERABLES Carla l Result [facility] [address] [address] [facility] [place] [place] [address] * CBC with auto differential (06/30/2024 12:17 PM CDT) [facility] WBC 8.6 3.8 - 10.8 Thousand/u [...] CDT FASTING:NO FASTING: NO us Evon Ro REGISTERED NURSE SURGICAL SERVICES LAB BLOOD ORDERABLES Carla l Result [facility] [address] [place] [address] * Hepatitis B core antibody, total (06/30/2024 12:17 PM CDT) Hep B core IgG/IgM NON-REACTI VE NON-REACTI VE [facility] Comment: For additional information, please refer to http://Fundamo (Proprietary).Ocean Seed/faq/LHT448 (This link is being provided for informational/ educational purposes only.) 06/30/2024 12:1 7 PM CDT 06/30/2024 12:19 PM CDT Narrative [facility] - 07/02/2024 5:10 PM CDT FASTING:NO FASTING: NO Evon Ro NP LAB MICROBIOLOGY - [employer] L ORDERABLES Final Result Performing Organization Address [facility] de Phone Number [facility] [address] [facility] [place] [address] * Hepatitis C (HCV) RNA PCR, quantitative (06/30/2024 12:17 PM CDT) Pathologist [facility] HCV RNA IU/mL <15 NOT DETECTED NOT DETECTED IU/mL [facility] [place] HCV RNA log IU/mL <1.18 NOT DETECTED NOT DETECTED Log IU/mL [facility] [place] Comment: For additional information, please refer to http://Queryday/faq/YZT42y2 (This link is being provided for informational/ educational purposes only.) 06/30/2024 12:1 7 PM CDT 06/30/2024 12:19 PM CDT Narrative [facility] - 07/02/2024 5:10 PM CDT FASTING:NO FASTING: NO Evon Ro NP LAB MICROBIOLOGY - [employer] L ORDERABLES Final Result Performing Organization Address [facility] Co de Phone Number [facility] [address] [place] [address] * Hepatitis B Surface Antigen (06/30/2024 12:17 PM CDT) Pathologist [facility] HepBsAg NON-REACTI VE NON-REACTI VE [facility] Comment: For additional information, please refer to http://Fundamo (Proprietary).Ocean Seed/faq/ANE336 (This link is being provided for informational/ educational purposes only.) 06/30/2024 12:1 7 PM CDT 06/30/2024 12:19 PM CDT Narrative [facility] - 07/02/2024 5:10 PM CDT FASTING:NO FASTING: NO Evon Ro REGISTERED NURSE SURGICAL SERVICES LAB MICROBIOLOGY - GENERA L ORDERABLES Final Result Performing Organization Address [facility]/ZIP Co de Phone Number [facility] [address] [place] [address] * CRP (acute phase) (06/30/2024 12:17 PM CDT) C-RP <3.0 <8.0 mg/L [facility] 06/30/2024 12:1 7 PM CDT 06/30/2024 12:19 PM CDT Narrative [facility] - 07/02/2024 5:10 PM CDT FASTING:NO FASTING: NO Evon Ro NP LAB BLOOD ORDERABLES Carla l Result Performing Organization Address [facility] Co de Phone Number [facility] [address] [place] [address] * Comprehensive metabolic panel (06/30/2024 12:17 PM [...] CDT FASTING:NO FASTING: NO us Evon Ro REGISTERED NURSE SURGICAL SERVICES LAB BLOOD ORDERABLES Carla l Result [facility] [address] [facility] [place] [address] * Colonoscopy (12/17/2023 8:10 AM CDT) Anatomical Region Laterality Modality Other Narrative Procedure Note Boni Bose MD - 12/17/2023 8:10 AM CDT [facility] GI ENDOSCOPY Patient Name: Nae Bajwa Procedure Date: 12/17/2023 8:10 AM Date of : 1975 Admit Type: Outpatient Age: 48 Gender: Female Attending MD: Boni Bose M.D. Room: [facility] ENDOSCOPY ROOM 06 Note Status: Finalized [...] The scope was passed under direct vision.The PCF-[id number] colonoscope was introduced through theanus and advanced [...] On: 12/17/2023 8:10 AM Recognized by the [place] [employer] Gastrointestinal Endoscopy for promoting quality in endoscopy Boni Bose MD ENDOSCOPY PROCEDURES Final Resul t from Last 3 Months or Most Recently Relevant to Health Maintenance Insurance Care Teams Customs Guard Relationship Specialty Start Date End Date Eleanor Tom NP PCP - General Family Medicine 08/05/23 Gavino Han MD Internal Medicine 08/03/21 Kirt Polanco NP [address] [place] [address] Otolaryngology 07/23/24
--- OUTSIDE RECORDS SUMMARY | 2024-08-19 12:42 | XMS_ITS | Clinical Summary ---
Author Organization [facility] Address [address] [facility] [place] [address] Care Team Providers Care Plumbing Contractor Name Role Phone Gavino Han MD Primary Care Provider [phone] Source Comments [facility],non-owned Affiliates and Associated Physician Practices is amultiple site organization consisting of ambulatory clinics and hospital sitesin [place], [place], [place] and [place]. This disclosure is being madepursuant to the Care Everywhere program and may not contain all information available regarding this patient. Last updated 17.[facility] Allergies No known active allergies Medications * [...] patient's age to complete this topic [place] [address] [place] [address] Care Teams Plumbing Contractor Relationship Specialty Start Date End Date Gavino Han MD PCP - General Internal Medicine 10/07/15
--- OUTSIDE RECORDS SUMMARY | 2024-08-19 12:42 | XMS_ITS | Clinical Summary ---
Author Organization [facility] Address [address] [place] [address] Phone Care Team Providers Care Geoscience Laboratory Technician Name Role Phone Unavailable Primary Care Provider [...]
--- OUTSIDE RECORDS SUMMARY | 2024-08-19 12:42 | XMS_ITS | Encounter Summary ---
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
--- NOTE | 2024-08-19 13:25 | ED_ITS ---
HPI - General Adult General Chief complaint: Chest Pain Stated complaint: chest pain, dyspnea Time Seen by Provider: 08/19/24 12:14 History of Present Illness HPI narrative: this is a 49-year-old female presenting ED with a chief complaint of chest pain. Patient states for the last month she has been having intermittent episodes of chest pressure in the center of her chest radiating to her back. Today she has had episodes with increased pain that she describes as a bad during ramp to her chest. These episodes have happened 4-5 times today, last for a minute at a time and then resolved on their own. They are not related to exertion. She has not become diaphoretic or vomit during these episodes. Patient notes that she is under a significant referred amount of stress lately as her mother 6 weeks ago and that her fever onto 2 weeks ago. She denies fevers chills cough abdominal pain nausea vomiting diarrhea, lower extremity edema risk factors for DVT/PE. Related Data Home Medications ?Medication ?Instructions ?Recorded ?Confirmed ?Last Taken ?Type acetaminophen 500 mg capsule 500 mg PO Q6H PRN Pain 08/28/21 02/22/24 Unknown History bupropion HCl 300 mg 24 hr tablet, 300 mg PO QAM 08/28/21 02/22/24 Unknown History extended release gabapentin 300 mg capsule 300 mg PO DAILY 08/28/21 02/22/24 Unknown History lamotrigine 100 mg tablet 100 mg PO DAILY 08/28/21 02/22/24 Unknown History amlodipine 2.5 mg tablet 2.5 mg PO DAILY 12/28/21 02/22/24 Unknown History lisinopril 10 mg tablet 20 mg PO DAILY 12/28/21 02/22/24 Unknown History metoprolol tartrate 25 mg tablet 25 mg PO DAILY 12/28/21 02/22/24 Unknown History prednisone 5 mg tablet 5 mg PO TID 12/28/21 02/22/24 Unknown History sulfasalazine 500 mg tablet 1 g PO BID 12/28/21 Unknown History topiramate 25 mg tablet 50 mg PO DAILY 12/28/21 02/22/24 Unknown History Allergies Allergy/AdvReac Type Severity Reaction Status Date / Time No Known Allergies Allergy Verified 06/21/24 11:14 [facility] Past Medical History Medical History Right hand dominant Rotator cuff tendonitis Left shoulder pain Shoulder impingement Surgical History Surgical History History of cholecystectomy 1995 Hx of prior ablation treatment 2008 History of 1994, 1996 Family History Family History Unknown Family history of cancer oral and sarcoma Family history of kidney disease Other Asthma Depression Diabetes mellitus Heart disease Hypertension Social History Social History Smoking status: Never smoker Alcohol intake: current Drinks per week: 6 Substance use: current Substance use type: marijuana Occupation/Education: occupation 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 Head: atraumatic. EYES: EOMI, NOSE: Atraumatic NECK: Trachea midline RESPIRATORY: No increased rate of breathing, SOB CARDIOVASCULAR: RRR, No Peripheral edema ABDOMINAL: Non-distended soft nontender MUSCULOSKELETAl: No obvious deformities NEURO: Alert. Moving 4/4 extremities SKIN:: Warm, dry. Normal color PSYCHIATRIC: Normal affect Course Vital Signs Vital signs: Vital Signs Temperature 98 F 08/19/24 11:34 Pulse Rate 85 08/19/24 11:34 Respiratory Rate 20 08/19/24 11:34 Blood Pressure 157/99 H 08/19/24 11:34 Pulse Oximetry 100 08/19/24 11:34 Oxygen Delivery Room Air 08/19/24 11:34 Temperature 98 F 08/19/24 11:34 Pulse Rate 78 08/19/24 15:01 Respiratory Rate 16 08/19/24 15:01 Blood Pressure 135/82 08/19/24 15:01 Pulse Oximetry 97 08/19/24 15:01 Oxygen Delivery Room Air 08/19/24 11:45 Medical Decision Making [facility] Narrative Medical decision making narrative: -Course: 49-year-old female presenting 1 month of chest pain radiating to her back that is got worse today. extensive workup including CTA chest or pelvis 1 troponin x2 chest x-ray EKG basic laboratory studies were all within limits. Pain is atypical and has been going on for 1 month. It does not sound like cardiac pain. Results were discussed with the patient per family. The patient and her family had many questions on the effect of stress on the body as the loss of her mother and aunt has been very hard on Nae. regardless I have recommended that she follow-up with her primary care physician and a buildings painter for further evaluation. Patient has verbalized her understanding and is comfortable with plan. -DDX includes but is not limited to: Vascular pathology, ACS, PE, pneumonia pneumothorax, stress reaction hyperthyroid Independent EKG interpretation: Rhythm [sinus], Rate [72], [place] -[normal], [place] -[normal], QRS [narrow], QTC [normal], T waves -[negative for concerning inversions], ST Segments - [Negative for concerning elevations] Final interpretations: [Normal Sinus Rhythm] Vital Signs Vital Signs: Vital Signs Temperature 98 F 08/19/24 11:34 Pulse Rate 85 08/19/24 11:34 Respiratory Rate 20 08/19/24 11:34 Blood Pressure 157/99 H 08/19/24 11:34 Pulse Oximetry 100 08/19/24 11:34 Oxygen Delivery Room Air 08/19/24 11:34 Temperature 98 F 08/19/24 11:34 Pulse Rate 78 08/19/24 15:01 Respiratory Rate 16 08/19/24 15:01 Blood Pressure 135/82 08/19/24 15:01 Pulse Oximetry 97 08/19/24 15:01 Oxygen Delivery Room Air 08/19/24 11:45 Lab Data 08/19/24 11:39 08/19/24 11:39 Labs: Lab Results 08/19/24 08/19/24 Range/Units 11:39 14:48 WBC 8.4 (4.5-10.0) K/mm3 RBC 4.58 (4.2-5.4) M/mm3 Hgb 13.8 (12.0-15.0) g/dL Hct 42.9 (37.0-47.0) % MCV 93.7 (80-100) fl MCH 30.1 (26-34) pg MCHC 32.2 (32-36) g/dl RDW 14.0 (11.5-14.5) % Plt Count 168 (150-375) k/mm3 MPV 11.1 H (7.4-10.4) fl Immature Gran % (Auto) 0.4 (0-0.5) % Neut % (Auto) 53.2 (45.5-73.1) % Lymph % (Auto) 35.7 (18.3-44.2) % [place] % (Auto) 9.0 H (2.6-8.5) % Eos % (Auto) 1.1 (0-4.4) % Baso % (Auto) 0.6 (0.2-1.2) % Lymph # (Auto) 3.00 (0.9-3.2) K/mm3 [place] # (Auto) 0.8 H (0.1-0.6) K/mm3 Eos # (Auto) 0.1 (0-0.3) K/mm3 Baso # (Auto) 0.1 (0.0-0.1) K/mm3 Abs Immat Gran (auto) 0.03 (0.00-0.031) K/mm3 Absolute Neuts (auto) 4.5 (1.3-6.7) K/mm3 Absolute Nucleated RBC 0.000 (0.0-0.012) K/mm3 Nucleated RBC % 0.0 (0.0-0.2) % PT 12.5 (11.1-14.7) Seconds INR 0.9 APTT 25.4 (22.3-36.8) Seconds Sodium 141 (137-145) mmol/L Potassium 3.4 (3.4-5.0) mmol/L Chloride 105 (98-107) mmol/L Carbon Dioxide 24 (22-30) mmol/L Anion Gap 12 (4-12) mmol/L BUN 10 (7-17) mg/dL Creatinine 0.84 (0.7-1.0) mg/dL Estim Creat Clear Calc 91 ml/min Estimated GFR > 60 (59 - ) Glucose 99 (65-110) mg/dL Calcium 9.6 (8.4-10.2) mg/dL Total Bilirubin 0.4 (0.2-1.3) mg/dL AST 26 (14-36) U/L ALT 21 (6-35) U/L Alkaline Phosphatase 74 (38-126) U/L Troponin I < 0.012 < 0.012 (0.000-0.034) ng/mL Total Protein 8.0 (6.3-8.2) g/dL Albumin 4.8 (3.5-5.1) g/dL Lipase 97 (23-300) U/L TSH (Reflex) 6.100 H (0.465-4.68) uIU/mL Free T4 0.74 L (0.78-2.19) ng/dL Discharge Plan Discharge Clinical Impression: Atypical chest pain Patient Disposition: Home Condition: Stable Instructions: Antibiotic Form, Chest Pain (ED) Additional Instructions: You were seen in the emergency department for chest pain. Your workup here was reassuring with no definitive cause. Please follow-up with your primary care physician as scheduled and the buildings painter listed below. If your chest pain becomes worse, or you develop any new or worsening symptoms please return to the ED for re-evaluation Patient Language: Dutch Prescriptions: No Action lisinopril 10 mg tablet 20 mg PO DAILY topiramate 25 mg tablet 50 mg PO DAILY albuterol sulfate 90 mcg/actuation HFA aerosol inhaler 2 puff inhalation Q4-6H PRN (Reason: shortness of breath or wheezing) 30 Days Qty: 8.5 0RF bupropion HCl 300 mg tablet extended release 24 hr 300 mg PO QAM lamotrigine 100 mg tablet 100 mg PO DAILY gabapentin 300 mg capsule 300 mg PO DAILY acetaminophen 500 mg capsule 500 mg PO Q6H PRN (Reason: Pain) amlodipine 2.5 mg tablet 2.5 mg PO DAILY prednisone 5 mg tablet 5 mg PO TID sulfasalazine 500 mg tablet 1 g PO BID Rx Instructions: give with food (meal/snack) metoprolol tartrate 25 mg tablet 25 mg PO DAILY meclizine 25 mg tablet 25 mg PO BID PRN (Reason: dizziness) Qty: 14 0RF prednisone 20 mg tablet 40 mg PO DAILY Qty: 5 0RF meclizine 25 mg tablet 25 mg PO BID PRN (Reason: dizziness) Qty: 30 0RF diazepam [Valium] 5 mg tablet 5 mg PO HS PRN (Reason: muscle spasm) Qty: 7 0RF Follow-up/Referrals: Sam Ramsey MD [Physician] - 1 Week (chest pain) Vaishali,MURPHY [place] [Primary Care Provider] -
[2024-08-19 14:59] LABS: Free T4 Free Thyroxine Reflex 0.74 ng/dL (0.78-2.19)
--- NOTE | 2024-08-19 15:00 | ECG_ITS ---
Test Date: 2024-08-19 15:35:23 Measurements Intervals [place] Rate: 72 P: 38 DE: 163 QRS: 0 QRSD: 97 T: 1 QT: 404 QTc: 443 Interpretive Statements SINUS RHYTHM POSSIBLE LEFT ATRIAL ENLARGEMENT [-0.1mV P-WAVE IN V1/V2] LOW QRS VOLTAGE IN PRECORDIAL LEADS [QRS DEFLECTION < 1.0 mV IN CHEST LEADS] NONSPECIFIC ST AND T WAVE ABNORMALITY Compared to ECG 08/19/2024 11:38:10 NO SIGNIFICANT CHANGES Electronically Signed On 08-20-2024 11:08:44 CDT by Jeannine Harris M.D.
[2024-08-19 15:17] LABS: Troponin I < 0.012 ng/mL (0.000-0.034)
== END 2024-08-19 16:50 | disposition home or self-care (01) ==
PROVIDERS: Emergency Medicine; Emergency Provider Emergency Medicine; PCP Nurse Practitioner Family
DX: R07.89 Other chest pain (principal); Z90.49 Acquired absence of other specified parts of digestive tract; Z79.899 Other long term (current) drug therapy; R94.31 Abnormal electrocardiogram [ECG] [EKG]
CPT/HCPCS: 36415; 71046; 71275; 74174; 80053; 83690; 84439; 84443; 84484; 85025; 85610; 85730; 93005; 99284; A9270; Q9967